=== PATIENT | female | born 1955 | race Caucasian/White ===

== ENCOUNTER → 2019-03-26 10:24 | Outpatient (CLI) | payer OTHER, MEDICARE, SELFPAY ==
--- NOTE | 2019-03-26 10:35 | DI.CT.S_ITS ---
PROCEDURE: CT ABDOMEN PELVIS WO CON INDICATIONS: LEFT FLANK PAIN TECHNIQUE: Noncontrast 5 mm thick sections acquired from the diaphragms to the symphysis. 5 mm coronal and sagittal reformats were then performed. For radiation dose reduction, the following was used: automated exposure control, adjustment of mA and/or kV according to patient size. COMPARISON: [facility], CT, ABDOMEN WITH AND WITHOUT CONTR, 06/16/2009, 13:26. [facility], CT, ABDOMEN WITHOUT CONTRAST, 05/31/2010, 11:47. FINDINGS: Image quality: Excellent. ABDOMEN: Lung bases: Lung bases are clear. Heart size is normal. Solid organs: Liver is enlarged. Gallbladder is within normal limits. Pancreas is normal in contours. Spleen is normal in size. Low density bilateral adrenal nodules are present, as before, which have increased in size. Right adrenal nodule measures 6.5 cm and -14.2 Hounsfield units. Left adrenal nodule measures 5 cm and -11.4 Hounsfield units. Kidneys are normal in size, without hydronephrosis. There is a 16mm calcified low-density focus within the left interpolar kidney, which has increased in size. Peritoneum and bowel: Unenhanced bowel loops demonstrate normal wall thickness and caliber. No free fluid or air. Nodes and vessels: No retroperitoneal or mesenteric adenopathy by size criteria. Aorta and inferior vena cava are normal in caliber. Miscellaneous: No ventral hernias. PELVIS: Genitourinary: Bladder wall thickness is normal. Miscellaneous: No inguinal hernias or adenopathy. Bones: Right hip arthroplasty. No suspicious bony lesions. No vertebral body compression fractures. IMPRESSION: 1. No acute process. 2. No evidence of urinary tract obstruction. 3. Increased calcific focus within the left interpolar kidney. Differential considerations include remote infectious sequelae of compressive disease e.g., fungal or mycobacterial infection) versus neoplasm. IV contrast enhanced renal protocol CT or MRI is recommended for further assessment. 4. Increased bilateral adrenal adenomata. Dictated by: Ja Jaquez M.D. on 03/26/2019 at 11:02 Approved by: Ja Jaquez M.D. on 03/26/2019 at 11:07
== END ==
PROVIDERS: PCP Family Medicine; Visit Provider Family Medicine
DX: R93.422 Abnormal radiologic findings on diagnostic imaging of left kidney (principal); R10.9 Unspecified abdominal pain
CPT/HCPCS: 74176

== ENCOUNTER → 2019-04-02 14:39 | Outpatient (CLI) | payer OTHER, MEDICARE, SELFPAY ==
--- NOTE | 2019-04-02 | DI.CT.S_ITS ---
PROCEDURE: CT ABDOMEN W CON INDICATIONS: OTHER SPECIFIED DISORDERS OF KIDNEY AND URETER TECHNIQUE: After the administration of intravenous contrast, 5 mm thick images acquired from the diaphragm to the iliac crests in the arterial and urographic phases. 5 mm thick coronal and sagittal reformats were acquired. For radiation dose reduction, the following was used: automated exposure control, adjustment of mA and/or kV according to patient size. COMPARISON: [facility], CT, ABDOMEN WITH AND WITHOUT CONTR, 06/16/2009, 13:26. [facility], CT, CT ABDOMEN PELVIS WO CON, 03/26/2019, 10:33. FINDINGS: Image quality: Excellent. Lung bases: Lung bases are clear. Heart size is normal. Genitourinary: The bilateral kidneys demonstrate normal size and enhancement. There are multiple bilateral hypodense cortical lesions present consistent with simple renal cysts. A low density cyst is present within the midpole the left kidney which measures 1.2 cm in diameter. Dystrophic calcifications are present along the posterior margin of the cystic lesion. Overall, these findings are similar in extent to the study dated 06/16/09. No findings to suggest new suspicious enhancing renal mass. Solid organs: The liver is markedly enlarged measuring greater than 20 cm in length. The inferior margin the liver is not visualized on this limited view of the abdomen. Gallbladder is unremarkable. Biliary system is non dilated. Pancreas enhances normally. Spleen is normal in size and enhancement. There moderate in hypodense adrenal mass lesions bilaterally which are similar in appearance to the CT dated 06/16/09. Peritoneum and bowel: Unenhanced bowel loops are normal in caliber and wall thickness. No free fluid or air. Nodes and vessels: No retroperitoneal or mesenteric adenopathy by size criteria. Aorta and inferior vena cava are normal in caliber. Bones: No suspicious bony lesions. Severe degenerative changes are present within the mid lumbar spine. No vertebral body compression fractures. Miscellaneous: No ventral hernias. IMPRESSION: 1. Left renal cyst with dystrophic calcifications. No suspicious enhancement to suggest cystic neoplasm. 2. Marked hepatomegaly, the entire extent of which is not characterized on this view of the abdomen. 3. Stable bilateral adrenal adenomas. Dictated by: Mary Pitts M.D. on 04/02/2019 at 16:27 Approved by: Mary Pitts M.D. on 04/02/2019 at 16:38
[2019-04-02 15:05] LABS: Alanine Aminotransferase 18 IU/L (9-52); Albumin 4.5 g/dL (3.5-5.0); Albumin Globulin Ratio 1.3 (1.0-2.8); Alkaline Phosphatase 86 U/L (38-126); Aspartate Aminotransferase 32 IU/L (14-36); BUN Creatinine Ratio 18.9 (6-22); Bilirubin Total 0.5 mg/dL (0.2-1.3); Blood Urea Nitrogen 17 mg/dL (7-17); Calcium 10.1 mg/dL (8.4-10.2); Carbon Dioxide 28 mmol/L (22-32); Chloride 107 mmol/L (98-107); Estimated Glomerular Filt Rate > 60.0 mL/min (>60); Globulin 3.4 g/dL (1.7-4.1); Glucose 99 mg/dL (80-110); HEMOLYSIS 40 (0-50); Potassium 4.5 mmol/L (3.4-5.1); Sodium 144 mmol/L (137-145); Total Protein 7.9 g/dL (6.3-8.2)
== END ==
PROVIDERS: PCP Family Medicine; Visit Provider Family Medicine
DX: N28.89 Other specified disorders of kidney and ureter (principal)
CPT/HCPCS: 36415; 74160; 74170; 80053; Q9967

== ENCOUNTER 2020-02-04 17:47 | Emergency (ER) | payer OTHER, MEDICARE, SELFPAY ==
[2020-02-04 17:50] VITALS: BP 138/77; PULSE 84; RESP 14; TEMP 37.1; O2SAT 98; BMI 33.6
[2020-02-04] MEDS: TET,DIPH,PERTUSS(ACELL),VAC/PF 0.5 ML SYRINGE IM (18:13)
--- NOTE | 2020-02-04 20:57 | ED_ITS ---
HPI - Wound/Laceration <Conchita Velarde PA-C - Last Filed: 02/04/20 21:14> General Chief Complaint: Wound/Laceration Stated Complaint: cut to index finger of left hand Time Seen by Provider: 02/04/20 19:33 Source: patient Mode of arrival: Ambulatory Limitations: no limitations History of Present Illness HPI narrative: This is a well-appearing 64-year-old smoker who presents to the emergency department complaining of a laceration to her left index finger that she sustained while using a knife today in the kitchen shortly before arrival to the emergency department. She says that it did bleed quite a bit but the bleeding was controlled with a bandage and pressure in the emergency department. She does not complain of any other injury injuries, does not endorse taking blood thinners, and has minimal pain. She denies any other symptoms, this is an isolated injury. Onset (ago): hour(s) (2) Extremity Location: Left: hand Place: home Patient tetanus UTD: Yes Context: accidental Associated symptoms: pain Treatments prior to arrival: bandage Related Data Home Medications Medication Instructions Recorded Confirmed ASPIRIN (Aspirin) 324 mg PO Q DAY #0 09/18/10 Simvastatin (Zocor) 20 mg PO HS #0 09/18/10 VITAMIN C - 500 mg PO Q DAY #0 09/18/10 (VITAMIN C) [RIBOFLAVIN] 400 mg PO AM #0 11/20/10 Allergies Allergy/AdvReac Type Severity Reaction Status Date / Time No Known Drug Allergies Allergy Verified 02/04/20 17:54 Review of Systems <Conchita Velarde PA-C - Last Filed: 02/04/20 21:14> Review of Systems Narrative: GENERAL: Denies chills, fatigue, malaise, fever, sweats. RESPIRATORY: Denies dyspnea, cough, wheezing, hemoptysis, sputum. CARDIOVASCULAR: Denies chest pain, palpitations, orthopnea, edema, MUSCULOSKELETAL: denies weakness, joint pain, or bony pain SKIN: Positive for a laceration to her left index finger. Denies rash, skin lesions, or other PSYCHIATRIC: No concerning psychosocial issues. 12 point review of systems is negative except for those stated above Patient History <Conchita Velarde PA-C - Last Filed: 02/04/20 21:14> Social History Smoking Status: Current every day smoker Smoking Status: Current every day smoker alcohol intake frequency: holidays/special occasions only Substance Use Type: marijuana Exam <Conchita Velarde PA-C - Last Filed: 02/04/20 21:14> Narrative Exam Narrative: GENERAL: 64 year old patient appears stated age. Well-nourished, well-developed patient, in mild distress. HEAD: Atraumatic. Normocephalic. EYES: Pupils equal round and reactive. CARDIOVASCULAR: Regular rate and rhythm without murmurs, gallops, or rubs. RESPIRATORY: Clear to auscultation. Breath sounds equal bilaterally. No wheezes, rales, or rhonchi. EXTREMITIES: There is some mild pain with range of motion particularly flexion of the 2nd digit, but she has a full range of motion. No edema or joint tenderness. NEURO: AOx3. SKIN: There is a approximately 13 mm curvilinear shallow laceration/avulsion to the left 2nd finger overlying the PIP joint on the lateral aspect. Bleeding is controlled. Capillary refill of the affected digit is less than 2 seconds. Tendons are not affected. Sensation is intact. No rash or erythema of visibible areas. Initial Vital Signs Initial Vital Signs: Vital Signs Temperature 98.7 F 02/04/20 17:50 Pulse Rate 84 02/04/20 17:50 Respiratory Rate 14 02/04/20 17:50 Blood Pressure 138/77 02/04/20 17:50 Pulse Oximetry 98 02/04/20 17:50 <Uri Hi MD - Last Filed: 02/05/20 04:19> Initial Vital Signs Initial Vital Signs: Vital Signs Temperature 98.7 F 02/04/20 17:50 Pulse Rate 84 02/04/20 17:50 Respiratory Rate 14 02/04/20 17:50 Blood Pressure 138/77 02/04/20 17:50 Pulse Oximetry 98 02/04/20 17:50 Procedures <Conchita Velarde PA-C - Last Filed: 02/04/20 21:14> Laceration Repair Laceration 1: Site: hand Size (cm): 1.3 Description: linear (curvilinear) Depth: simple, single layer Pre-repair: wound explored, irrigated extensively and deep structures intact Skin layer closed with: dermabond Course <Conchita Velarde PA-C - Last Filed: 02/04/20 21:14> Orders Ordered: Discontinued Medications Diphtheria/Tetanus/Acell Pertussis (Adacel) 0.5 ml IM .ONCE ONE Stop: 02/04/20 17:58 Last Admin: 02/04/20 18:13 Dose: 0.5 ml Documented by: KBROTEM Vital Signs Vital signs: Vital Signs - 8 hr 02/04/20 21:09 Pulse Rate 72 Respiratory Rate 16 Blood Pressure 140/70 Pulse Oximetry 97 <Uri Hi MD - Last Filed: 02/05/20 04:19> Orders Ordered: Discontinued Medications Diphtheria/Tetanus/Acell Pertussis (Adacel) 0.5 ml IM .ONCE ONE Stop: 02/04/20 17:58 Last Admin: 02/04/20 18:13 Dose: 0.5 ml Documented by: KBROTEM Vital Signs Vital signs: Vital Signs - 8 hr 02/04/20 21:09 Pulse Rate 72 Respiratory Rate 16 Blood Pressure 140/70 Pulse Oximetry 97 [facility] - Wound/Laceration <Conchita Velarde PA-C - Last Filed: 02/04/20 21:14> Differential Diagnosis Differential diagnosis: Likely laceration Medical Records Attestation: I reviewed the patient's medical records. [facility] Narrative Medical decision making narrative: This is a well-appearing 64-year-old smoker who presents to the emergency department with a shallow laceration to her left 2nd digit overlying the lateral PIP joint. She declines x-ray, and based on exploration of the wound and its depth I am comfortable with this as well. Based on exam I have no suspicion for significant vascular damage, I have no suspicion for nerve damage or injury to the bone or tendons. The wound was explored and irrigated as above, and closed with Dermabond. The patient was provided with instructions regarding care, she is also provided with a finger splint to minimize movement of the joint while the wound heals. Return precautions were provided as well as follow-up recommendations, all questions were answered. Discharge Plan Departure Patient Disposition: Home Clinical Impression: Laceration Laceration of index finger of left hand without complication Qualifiers: Encounter type: initial encounter Qualified Code(s): S61.211A - Laceration without foreign body of left index finger without damage to nail, initial encounter Discharge Date/Time: 02/04/20 21:00 Instructions: How to Care for a Laceration After Repair, DI for Laceration Repair Activity Restrictions/Additional Instructions: Thank you for allowing us be part of your care in the emergency department today. There is no evidence of an emergent or life threatening illness at this time, but follow up with your doctor in 1-2 days is recommended nonetheless to continue to rule out serious underlying causes of your symptoms. Please call the office for an appointment. Please return to the Emergency Department for any worsening or persistent symptoms. Please take medications as directed. We repaired the laceration of her left index finger with skin glue, and gave you a splint for your finger you should keep wearing the splint for the next 3-5 days possibly longer depending on how your wound is looking it is okay to move it some when you take the splint off and I would recommend doing this a few times a day to give herself a break as well as to get some movement going in that finger that I would not recommend sending it to a full 90? certainly not in the next few days just to ensure that the skin glue does hold its integrity. Please look out for any signs of infection, including redness, heat, swelling, increased pain or any other symptoms of concern to you. I do recommend that you follow-up with your primary care in the next 2-5 days. The skin glue adhesive will naturally come off on its own and it may take a few weeks for this to happen. Please do not do any soaking baths or leaving your her hand in water for long periods of time for the next 10 days. Please avoid submerging her hand in water or in the shower for the next 24 hours. Prescriptions: No Action VITAMIN C - (VITAMIN C) 500 mg PO Q DAY Qty: 0 RF: 0 ASPIRIN (Aspirin) 324 mg PO Q DAY Qty: 0 RF: 0 Simvastatin (Zocor) 20 mg PO HS Qty: 0 RF: 0 [RIBOFLAVIN] 400 mg PO AM Qty: 0 RF: 0 Referrals: Nir Lofton MD [Primary Care Provider] -
[2020-02-04 21:09] VITALS: BP 140/70; PULSE 72; RESP 16; O2SAT 97
== END 2020-02-04 21:00 | disposition home or self-care (01) ==
PROVIDERS: Emergency Provider Student in an Organized Health Care Education/Training Program; PCP Family Medicine
DX: S61.211A Laceration without foreign body of left index finger without damage to nail, initial encounter (principal); W26.0XXA Contact with knife, initial encounter; Z23 Encounter for immunization
CPT/HCPCS: 90471; 99283; 90715

== ENCOUNTER 2020-05-05 12:07 | Emergency (ER) | payer OTHER, MEDICARE, SELFPAY ==
[2020-05-05] VITALS (8 sets, daily range): BP systolic 132–147; BP diastolic 64–78; PULSE 86–100; RESP 16–18; TEMP 36.8; O2SAT 94–99; BMI 32.2
--- NOTE | 2020-05-05 12:47 | ED.FEMALEGU ---
HPI - Female Genitourinary <ADÁN Donato - Last Filed: 05/05/20 18:59> General Chief complaint: Urogenital-Female Stated complaint: back pain, thinks its her kidneys Time Seen by Provider: 05/05/20 12:24 Source: patient Mode of arrival: Family Vehicle Limitations: no limitations History of Present Illness HPI Narrative: The patient is a 64-year-old female current smoker with history of kidney cyst/kidney mass and pyelonephritis who presents with a chief complaint of left-sided flank pain radiating around to her left abdomen. She does have some chills. She denies any fevers, denies any dysuria but complains of urgency and frequency. She states this happened with previous kidney stone. Denies any fever. She has not taken anything to feel better. She states that she has a remote history of a kidney stone, but nothing recently and she is worried about her multiple kidney masses. Related Data Home Medications Medication Instructions Recorded Confirmed ASPIRIN (Aspirin) 324 mg PO Q DAY #0 09/18/10 Simvastatin (Zocor) 20 mg PO HS #0 09/18/10 VITAMIN C - 500 mg PO Q DAY #0 09/18/10 (VITAMIN C) [RIBOFLAVIN] 400 mg PO AM #0 11/20/10 Previous Rx's Medication Instructions Recorded hydrocodone-acetaminophen [[place]] 1 tab PO Q4-6H PRN #10 tab 05/05/20 ketorolac 10 mg PO TID PRN #14 tab 05/05/20 ondansetron 4 mg PO Q6H PRN #20 tab 05/05/20 tamsulosin 0.4 mg PO DAILY #7 cap 05/05/20 Allergies Allergy/AdvReac Type Severity Reaction Status Date / Time No Known Drug Allergies Allergy Verified 05/05/20 12:36 Review of Systems <ADÁN Donato - Last Filed: 05/05/20 18:59> Review of Systems Narrative: GENERAL: Denies chills, fatigue, malaise, fever, sweats. HEENT: Denies sinus pain, ear pain, sore throat, difficulty swallowing, dizziness. RESPIRATORY: Denies dyspnea, cough, wheezing, hemoptysis, sputum. CARDIOVASCULAR: Denies chest pain, palpitations, orthopnea, edema, GASTROINTESTINAL: See HPI : See HPI MUSCULOSKELETAL: denies weakness, joint pain, or bony pain SKIN: Denies rash, skin lesions, or other NEUROLOGIC: Denies weakness, headache, numbness, change in speech, confusion, seizures, incoordination. PSYCHIATRIC: No concerning psychosocial issues. 12 point review of systems is negative except for those stated above Patient History <Cande ADÁN Greer - Last Filed: 05/05/20 18:59> alcohol intake frequency: holidays/special occasions only Substance Use Type: marijuana Exam <Cande ADÁN Greer - Last Filed: 05/05/20 18:59> Narrative Exam Narrative: GENERAL: This is a well-nourished, well-developed patient, no acute distress HEAD: Atraumatic. Normocephalic. No temporal or scalp tenderness. EYES: Pupils equal round and reactive. Extraocular motions intact. No scleral icterus. No injection or drainage. ENT: Nose without bleeding, purulent drainage or septal hematoma. Throat without erythema, tonsillar hypertrophy or exudate. Uvula midline. Airway patent. NECK: Trachea midline. No JVD or lymphadenopathy. Supple, nontender, no meningeal signs. CARDIOVASCULAR: Regular rate and rhythm RESPIRATORY: Coarse bilaterally to auscultation. Breath sounds equal bilaterally. No wheezes, rales, or rhonchi. No cough on exam. No increased respiratory effort. No accessory muscle use. GASTROINTESTINAL: Abdomen soft, slight left lower quadrant tenderness to palpation, nondistended. No hepato-splenomegaly, or palpable masses. No guarding. Active bowel sounds all 4 quadrants EXTREMITIES: No clubbing, cyanosis, or edema. No joint tenderness, effusion, or edema noted. BACK: Nontender without deformity or crepitance. CVA tenderness noted left side, no CVA tenderness noted right side NEURO: AOx3. SKIN: No rash or erythema on visible care Initial Vital Signs Initial Vital Signs: Vital Signs Temperature 98.2 F 05/05/20 12:34 Pulse Rate 98 H 05/05/20 12:34 Respiratory Rate 18 05/05/20 12:34 Blood Pressure 147/64 H 05/05/20 12:34 Pulse Oximetry 98 05/05/20 12:34 <Luisana Cantu MD - Last Filed: 05/06/20 08:31> Initial Vital Signs Initial Vital Signs: Vital Signs Temperature 98.2 F 08/28/20 12:34 Pulse Rate 98 H 05/05/20 12:34 Respiratory Rate 18 05/05/20 12:34 Blood Pressure 147/64 H 05/05/20 12:34 Pulse Oximetry 98 05/05/20 12:34 Scores <ZAHIDA DonatoBC - Last Filed: 05/05/20 18:59> GCS Nicholas coma scale eye opening: Spontaneous Parsons coma scale verbal response: Orientated Parsons coma scale motor response: Obey commands Parsons coma scale total score: 15 Course <ADÁN Donato - Last Filed: 05/05/20 18:59> Orders Ordered: Discontinued Medications Hydrocodone Bitart/Acetaminophen ([place] 5/325) 1 tab PO NOW ONE Stop: 05/05/20 15:40 Last Admin: 05/05/20 15:42 Dose: 1 tab Documented by: JUNIOR Sodium Chloride (Normal Saline 0.9%) 1,000 mls @ 1,000 mls/hr IV BOLUS ONE Stop: 05/05/20 13:35 Last Infusion: 05/05/20 15:38 Dose: 0 mls/hr Documented by: Admin: 05/05/20 13:01 Dose: 1,000 mls/hr Documented by: JUNIOR Ketorolac Tromethamine (Toradol) 15 mg IV NOW ONE Stop: 05/05/20 15:40 Last Admin: 05/05/20 15:45 Dose: 15 mg Documented by: JUNIOR Morphine Sulfate (Morphine) 4 mg IV NOW ONE Stop: 05/05/20 12:37 Last Admin: 05/05/20 13:03 Dose: 4 mg Documented by: JUNIOR Morphine Sulfate (Morphine) 4 mg IV NOW ONE Stop: 05/05/20 14:34 Last Admin: 05/05/20 15:44 Dose: Not Given Documented by: JUNIOR Ondansetron HCl (Zofran) 4 mg IV NOW ONE Stop: 05/05/20 12:37 Last Admin: 05/05/20 13:03 Dose: 4 mg Documented by: JUNIOR Vital Signs Vital signs: Vital Signs - 8 hr 05/05/20 12:34 05/05/20 13:57 05/05/20 14:00 Temperature 98.2 F Pulse Rate 98 H 90 86 Respiratory Rate 18 Blood Pressure 147/64 H 133/73 Pulse Oximetry 98 97 96 05/05/20 14:42 05/05/20 14:43 05/05/20 15:00 Temperature Pulse Rate 95 H 92 H 89 Respiratory Rate 16 Blood Pressure 132/77 Pulse Oximetry 99 97 94 05/05/20 15:30 05/05/20 15:49 Temperature 98.3 F Pulse Rate 87 100 H Respiratory Rate 16 Blood Pressure 140/78 Pulse Oximetry 97 95 <Luisana Cantu MD - Last Filed: 05/06/20 08:31> Orders Ordered: Discontinued Medications Hydrocodone Bitart/Acetaminophen ([place] 5/325) 1 tab PO NOW ONE Stop: 05/05/20 15:40 Last Admin: 05/05/20 15:42 Dose: 1 tab Documented by: JUNIOR Sodium Chloride (Normal Saline 0.9%) 1,000 mls @ 1,000 mls/hr IV BOLUS ONE Stop: 05/05/20 13:35 Last Infusion: 05/05/20 15:38 Dose: 0 mls/hr Documented by: Admin: 05/05/20 13:01 Dose: 1,000 mls/hr Documented by: JUNIOR Ketorolac Tromethamine (Toradol) 15 mg IV NOW ONE Stop: 05/05/20 15:40 Last Admin: 05/05/20 15:45 Dose: 15 mg Documented by: JUNIOR Morphine Sulfate (Morphine) 4 mg IV NOW ONE Stop: 05/05/20 12:37 Last Admin: 05/05/20 13:03 Dose: 4 mg Documented by: JUNIOR Morphine Sulfate (Morphine) 4 mg IV NOW ONE Stop: 05/05/20 14:34 Last Admin: 05/05/20 15:44 Dose: Not Given Documented by: JUNIOR Ondansetron HCl (Zofran) 4 mg IV NOW ONE Stop: 05/05/20 12:37 Last Admin: 05/05/20 13:03 Dose: 4 mg Documented by: JUNIOR Vital Signs Vital signs: Vital Signs - 8 hr 05/05/20 12:34 05/05/20 13:57 05/05/20 14:00 Temperature 98.2 F Pulse Rate 98 H 90 86 Respiratory Rate 18 Blood Pressure 147/64 H 133/73 Pulse Oximetry 98 97 96 05/05/20 14:42 05/05/20 14:43 05/05/20 15:00 Temperature Pulse Rate 95 H 92 H 89 Respiratory Rate 16 Blood Pressure 132/77 Pulse Oximetry 99 97 94 05/05/20 15:30 05/05/20 15:49 Temperature 98.3 F Pulse Rate 87 100 H Respiratory Rate 16 Blood Pressure 140/78 Pulse Oximetry 97 95 MDM - Female Genitourinary <SHIRA Donato- - Last Filed: 05/05/20 18:59> Lab Data Result diagrams: 05/05/20 13:05 05/05/20 13:05 Labs: Lab Results 05/05/20 05/05/20 05/05/20 Range/Units 12:30 13:05 13:05 WBC 12.9 H (4.5-11.0) X10^3/uL RBC 4.77 (4.0-5.2) X10^6/uL Hgb 15.0 (12.0-16.0) g/dL Hct 43.1 (36-46) % MCV 90.5 (80-100) fL MCH 31.4 (26-34) PG MCHC 34.7 (30-36) % RDW 13.6 (11.6-14.8) % Plt Count 310 (150-400) X10^3/uL Neut % (Auto) 79.0 H (50-75) % Lymph % (Auto) 12.6 L (25-40) % [place] % (Auto) 7.6 (3-14) % Eos % (Auto) 0.3 L (2-4) % Baso % (Auto) 0.5 (0-2) % Neut # (Auto) 38993 H (8455-2544) /uL Lymph # (Auto) 1600 (4368-9276) /uL [place] # (Auto) 1000 H (0-900) /uL Eos # (Auto) 0 (0-450) /uL Baso # (Auto) 100 (0-100) /uL Sodium 139 (137-145) mmol/L Potassium 3.5 (3.4-5.1) mmol/L Chloride 106 (98-107) mmol/L Carbon Dioxide 24 (22-32) mmol/L BUN 20 H (7-17) mg/dL Creatinine 1.18 H (0.52-1.04) mg/dL Estimated GFR 46.0 L (>60) mL/min BUN/Creatinine Ratio 16.9 (6-22) Glucose 114 H (80-110) mg/dL Calcium 10.0 (8.4-10.2) mg/dL Total Bilirubin 0.7 (0.2-1.3) mg/dL AST 33 (14-36) IU/L ALT 22 (<35) IU/L Alkaline Phosphatase 101 (38-126) U/L Total Protein 8.2 (6.3-8.2) g/dL Albumin 4.6 (3.5-5.0) g/dL Globulin 3.6 (1.7-4.1) g/dL Albumin/Globulin Ratio 1.3 (1.0-2.8) Amylase 74 (30-110) U/L Lipase 100 (23-300) U/L Urine RBC 10-30/hpf H (0-5/HPF) Urine WBC 5-10/hpf H (0-5/HPF) Ur Squamous Epith Cells 5-10 /hpf H (0-5/HPF) Urine Bacteria Moderate (10-30) H (None) Ur Culture Indicated? Cult not indicated 05/05/20 Range/Units 14:15 WBC (4.5-11.0) X10^3/uL RBC (4.0-5.2) X10^6/uL Hgb (12.0-16.0) g/dL Hct (36-46) % MCV (80-100) fL MCH (26-34) PG MCHC (30-36) % RDW (11.6-14.8) % Plt Count (150-400) X10^3/uL Neut % (Auto) (50-75) % Lymph % (Auto) (25-40) % [place] % (Auto) (3-14) % Eos % (Auto) (2-4) % Baso % (Auto) (0-2) % Neut # (Auto) (8112-4800) /uL Lymph # (Auto) (4289-7023) /uL [place] # (Auto) (0-900) /uL Eos # (Auto) (0-450) /uL Baso # (Auto) (0-100) /uL Sodium (137-145) mmol/L Potassium (3.4-5.1) mmol/L Chloride (98-107) mmol/L Carbon Dioxide (22-32) mmol/L BUN (7-17) mg/dL Creatinine (0.52-1.04) mg/dL Estimated GFR (>60) mL/min BUN/Creatinine Ratio (6-22) Glucose (80-110) mg/dL Calcium (8.4-10.2) mg/dL Total Bilirubin (0.2-1.3) mg/dL AST (14-36) IU/L ALT (<35) IU/L Alkaline Phosphatase (38-126) U/L Total Protein (6.3-8.2) g/dL Albumin (3.5-5.0) g/dL Globulin (1.7-4.1) g/dL Albumin/Globulin Ratio (1.0-2.8) Amylase (30-110) U/L Lipase (23-300) U/L Urine RBC 5-10/hpf H (0-5/HPF) Urine WBC None seen (0-5/HPF) Ur Squamous Epith Cells 0-1 /hpf (0-5/HPF) Urine Bacteria None seen (None) Ur Culture Indicated? Culture not indicate Urine Dip Bedside Urine Glucose Negative Bedside Urine Bilirubin - Negative Bedside Urine Ketone - Negative Urine Specific [place] 1.015 Bedside Urine Occult Blood + Bedside Urine pH 6.0 Bedside Urine Protein - Negative Bedside Urine Urobilinogen - Negative Bedside Urine Nitrite - Negative Bedside Urine Leukocytes - Negative Esterase Imaging Data CT scan - abdomen/pelvis: Radiologist's Impression: [address] [address] CT Scan Report Signed Patient: Cynthia Reynoso LMR#: [id number] : 5Acct:[id number] Age/Sex: 64 / FDate of Service: 05/05/20 Loc: ED Accession Number: [id number] Procedure: CT abdomen pelvis w con Ordering Provider: Cande Greer [employer] TECHNICAL OFFICER- PROCEDURE: CT ABDOMEN PELVIS W CON INDICATIONS: flank pain, left abd pain, hx renal mass TECHNIQUE: After the administration of intravenous contrast, 5 mm thick sections acquired from the diaphragm to the symphysis. 5 mm coronal and sagittal reformats were acquired. For radiation dose reduction, the following was used: automated exposure control, adjustment of mA and/or kV according to patient size. COMPARISON: [facility], CT, CT ABDOMEN PELVIS WO CON, 03/26/2019, 10:33. [facility], CT, ABDOMEN/PELVIS WITH CONTRAST, 06/08/2009, 10:55. FINDINGS: Image quality: Excellent. ABDOMEN: Lung bases: Lung bases are clear. Heart size is normal. Solid organs: Liver is normal in size and enhancement. Gallbladder appears normal. Biliary system is non dilated. Pancreas enhances normally. Spleen is normal in size and enhancement. Diffuse adrenal adenomata are again seen, not significantly changed in size when compared to the prior CT from 06/08/2019. A 4 mm calculus is seen in the distal left ureter near the ureterovesicular junction with moderate left hydroureteronephrosis. 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 Small cysts are seen in both kidneys. There is no right-sided hydronephrosis. Peritoneum and bowel: Bowel loops demonstrate normal wall thickness and caliber. No free fluid or air. Nodes and vessels: No retroperitoneal or mesenteric adenopathy by size criteria. Aorta and inferior vena cava are normal in size. Atherosclerotic calcifications are seen in the aorta. Miscellaneous: No ventral hernias. PELVIS: Genitourinary: Bladder wall thickness is normal. Miscellaneous: No inguinal hernias or adenopathy. Bones: No suspicious bony lesions. No vertebral body compression fractures. Postsurgical changes are seen from right hip arthroplasty with metallic artifact that obscures the adjacent structures. Degenerative changes are seen in the included portions of the spine. Levoconvex curvature is seen at the lumbosacral junction. IMPRESSION: 1. A 4 mm calculus is seen at the distal left ureter near the ureterovesicular junction with moderate left hydroureteronephrosis. 2. 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 3. Bilateral adrenal adenomata do not appear significantly changed in size when compared to the prior CT from 2018. Dictated by: Andriy Contreras M.D. on 05/05/2020 at 14:36 Approved by: Andriy Contreras M.D. on 05/05/2020 at 14:59 MDM Narrative Medical decision making narrative: The patient is a [age]-year-old history of kidney mass who presents with a chief complaint of left-sided flank pain. She is also concerned about nurse kidney masses, her renal function appears fairly well. Her CT abdomen pelvis was done with contrast to evaluate the kidney masses, which appeared to have barely changed in size and or stayed stable. She does have a 4 mm ureteral stone. She was given morphine and Zofran in the emergency department for comfort. I did start her on pain medicine, nausea medicine to tamsulosin. The patient states she will follow up with primary care provider in the next few days as she needs to see them prior to urologist as per her insurance policy. She has no signs of urinary tract infection, no dysuria. I discussed at length monitoring for those and discussed at length coming back to the emergency department for any concerns. Patient has no questions or concerns upon discharge and states understanding of return precautions as well as follow-up care. <Luisana Cantu MD - Last Filed: 05/06/20 08:31> Lab Data Labs: Lab Results 05/05/20 05/05/20 05/05/20 Range/Units 12:30 13:05 13:05 WBC 12.9 H (4.5-11.0) X10^3/uL RBC 4.77 (4.0-5.2) X10^6/uL Hgb 15.0 (12.0-16.0) g/dL Hct 43.1 (36-46) % MCV 90.5 (80-100) fL MCH 31.4 (26-34) PG MCHC 34.7 (30-36) % RDW 13.6 (11.6-14.8) % Plt Count 310 (150-400) X10^3/uL Neut % (Auto) 79.0 H (50-75) % Lymph % (Auto) 12.6 L (25-40) % [place] % (Auto) 7.6 (3-14) % Eos % (Auto) 0.3 L (2-4) % Baso % (Auto) 0.5 (0-2) % Neut # (Auto) 05209 H (4106-8350) /uL Lymph # (Auto) 1600 (6935-6552) /uL [place] # (Auto) 1000 H (0-900) /uL Eos # (Auto) 0 (0-450) /uL Baso # (Auto) 100 (0-100) /uL Sodium 139 (137-145) mmol/L Potassium 3.5 (3.4-5.1) mmol/L Chloride 106 (98-107) mmol/L Carbon Dioxide 24 (22-32) mmol/L BUN 20 H (7-17) mg/dL Creatinine 1.18 H (0.52-1.04) mg/dL Estimated GFR 46.0 L (>60) mL/min BUN/Creatinine Ratio 16.9 (6-22) Glucose 114 H (80-110) mg/dL Calcium 10.0 (8.4-10.2) mg/dL Total Bilirubin 0.7 (0.2-1.3) mg/dL AST 33 (14-36) IU/L ALT 22 (<35) IU/L Alkaline Phosphatase 101 (38-126) U/L Total Protein 8.2 (6.3-8.2) g/dL Albumin 4.6 (3.5-5.0) g/dL Globulin 3.6 (1.7-4.1) g/dL Albumin/Globulin Ratio 1.3 (1.0-2.8) Amylase 74 (30-110) U/L Lipase 100 (23-300) U/L Urine RBC 10-30/hpf H (0-5/HPF) Urine WBC 5-10/hpf H (0-5/HPF) Ur Squamous Epith Cells 5-10 /hpf H (0-5/HPF) Urine Bacteria Moderate (10-30) H (None) Ur Culture Indicated? Cult not indicated 05/05/20 Range/Units 14:15 WBC (4.5-11.0) X10^3/uL RBC (4.0-5.2) X10^6/uL Hgb (12.0-16.0) g/dL Hct (36-46) % MCV (80-100) fL MCH (26-34) PG MCHC (30-36) % RDW (11.6-14.8) % Plt Count (150-400) X10^3/uL Neut % (Auto) (50-75) % Lymph % (Auto) (25-40) % [place] % (Auto) (3-14) % Eos % (Auto) (2-4) % Baso % (Auto) (0-2) % Neut # (Auto) (7189-6848) /uL Lymph # (Auto) (7529-7431) /uL [place] # (Auto) (0-900) /uL Eos # (Auto) (0-450) /uL Baso # (Auto) (0-100) /uL Sodium (137-145) mmol/L Potassium (3.4-5.1) mmol/L Chloride (98-107) mmol/L Carbon Dioxide (22-32) mmol/L BUN (7-17) mg/dL Creatinine (0.52-1.04) mg/dL Estimated GFR (>60) mL/min BUN/Creatinine Ratio (6-22) Glucose (80-110) mg/dL Calcium (8.4-10.2) mg/dL Total Bilirubin (0.2-1.3) mg/dL AST (14-36) IU/L ALT (<35) IU/L Alkaline Phosphatase (38-126) U/L Total Protein (6.3-8.2) g/dL Albumin (3.5-5.0) g/dL Globulin (1.7-4.1) g/dL Albumin/Globulin Ratio (1.0-2.8) Amylase (30-110) U/L Lipase (23-300) U/L Urine RBC 5-10/hpf H (0-5/HPF) Urine WBC None seen (0-5/HPF) Ur Squamous Epith Cells 0-1 /hpf (0-5/HPF) Urine Bacteria None seen (None) Ur Culture Indicated? Culture not indicate Urine Dip Bedside Urine Glucose Negative Bedside Urine Bilirubin - Negative Bedside Urine Ketone - Negative Urine Specific [place] 1.015 Bedside Urine Occult Blood + Bedside Urine pH 6.0 Bedside Urine Protein - Negative Bedside Urine Urobilinogen - Negative Bedside Urine Nitrite - Negative Bedside Urine Leukocytes - Negative Esterase Discharge Plan Departure Patient Disposition: Home Clinical Impression: Calculus, ureteral Discharge Date/Time: 05/05/20 16:33 Instructions: DI for Kidney Infection Activity Restrictions/Additional Instructions: Thank you for trusting us with your care today. As I discussed, 4 mm calculus in your left ureter I sent four prescriptions to [facility] in [place]. This includes tamsulosin to help pass the stone, 2 different pain medications as well as a nausea medicine. I have given you a prescription of Toradol. This is an NSAID. Do not combine it with other NSAIDs such as Aleve or ibuprofen. I suggest taking it with some food, as it can irritate your stomach. I have given you a prescription of a narcotic for pain. Be aware that this can be constipating and sedating. I encouraged taking with a stool softener, pushing fluids and fiber. Do not take and drive, operate heavy machinery, etc. Do not combine it with any other sedating substances such as alcohol. The combination of narcotics and alcohol and/or other sedatives can be lethal. Please follow-up with your primary care provider in the next few days. Please push fluids and rest. Please strain your urine to catch the stone. Please come back to the emergency department for any acute concerns such as inability keep down fluids, fever with abdominal pain etcetera. Please also monitor for burning when you urinate or any acute concerns. Prescriptions: New tamsulosin 0.4 mg capsule 0.4 mg PO DAILY Qty: 7 RF: 0 ondansetron 4 mg tablet,disintegrating 4 mg PO Q6H PRN (Reason: nausea and vomiting) Qty: 20 RF: 0 hydrocodone-acetaminophen [[place]] 5-325 mg tablet 1 tab PO Q4-6H PRN (Reason: pain) Qty: 10 RF: 0 ketorolac 10 mg tablet 10 mg PO TID PRN (Reason: pain) Qty: 14 RF: 0 No Action VITAMIN C - (VITAMIN C) 500 mg PO Q DAY Qty: 0 RF: 0 ASPIRIN (Aspirin) 324 mg PO Q DAY Qty: 0 RF: 0 Simvastatin (Zocor) 20 mg PO HS Qty: 0 RF: 0 [RIBOFLAVIN] 400 mg PO AM Qty: 0 RF: 0 Referrals: Nir Lofton MD [Primary Care Provider] - <Luisana Cantu MD - Last Filed: 05/06/20 08:31> Cosign ED Attending Cosignature Attestation: I was immediately available in the department for consultation throughout this patient's visit. I agree with documentation as above. Luisana Cantu MD
[2020-05-05 12:54] LABS: Bacteria Urine Moderate (10-30); Culture Indicated Urine Cult Not Indicated; RBC Urine 10-30/HPF (0-5/HPF); Squamous Epithelial Cell Urine 5-10 /HPF (0-5/HPF); WBC Urine 5-10/HPF (0-5/HPF)
[2020-05-05] MEDS: SODIUM CHLORIDE 0.9% 1,000 ML 1000 ML IV (13:01)
[2020-05-05] MEDS: ONDANSETRON 4 MG/2 ML INJ IV (13:03)
[2020-05-05] MEDS: MORPHINE 4 MG/ML INJ IV (13:03)
[2020-05-05 13:14] LABS: Add Manual Diff / Slide Review NO; Basophils Absolute Auto 100 /uL (0-100); Basophils Percent Auto 0.5 % (0-2); Eosinophils Absolute Auto 0 /uL (0-450); Eosinophils Percent Auto 0.3 % (2-4); Hematocrit 43.1 % (36-46); Lymphocytes Absolute Auto 1600 /uL (1100-4500); Lymphocytes Percent Auto 12.6 % (25-40); Mean Corpuscular HGB Conc 34.7 % (30-36); Mean Corpuscular Hemoglobin 31.4 PG (26-34); Mean Corpuscular Volume 90.5 fL (80-100); Monocytes Absolute Auto 1000 /uL (0-900); Monocytes Percent Auto 7.6 % (3-14); Neutrophils Absolute Auto 10200 /uL (1500-7000); Platelet Count 310 X10^3/uL (150-400); Red Blood Cell Count 4.77 X10^6/uL (4.0-5.2); Red Cell Distribution Width 13.6 % (11.6-14.8); White Blood Cell Count 12.9 X10^3/uL (4.5-11.0)
[2020-05-05 13:26] LABS: Alanine Aminotransferase 22 IU/L (<35); Albumin 4.6 g/dL (3.5-5.0); Albumin Globulin Ratio 1.3 (1.0-2.8); Alkaline Phosphatase 101 U/L (38-126); Amylase 74 U/L (30-110); Aspartate Aminotransferase 33 IU/L (14-36); BUN Creatinine Ratio 16.9 (6-22); Bilirubin Total 0.7 mg/dL (0.2-1.3); Blood Urea Nitrogen 20 mg/dL (7-17); Carbon Dioxide 24 mmol/L (22-32); Chloride 106 mmol/L (98-107); Globulin 3.6 g/dL (1.7-4.1); Glucose 114 mg/dL (80-110); HEMOLYSIS 29 (0-50); Lipase 100 U/L (23-300); Potassium 3.5 mmol/L (3.4-5.1); Sodium 139 mmol/L (137-145); Total Protein 8.2 g/dL (6.3-8.2)
--- NOTE | 2020-05-05 13:56 | DI.CT.S_ITS ---
PROCEDURE: CT ABDOMEN PELVIS W CON INDICATIONS: flank pain, left abd pain, hx renal mass TECHNIQUE: After the administration of intravenous contrast, 5 mm thick sections acquired from the diaphragm to the symphysis. 5 mm coronal and sagittal reformats were acquired. For radiation dose reduction, the following was used: automated exposure control, adjustment of mA and/or kV according to patient size. COMPARISON: [facility], CT, CT ABDOMEN PELVIS WO CON, 03/26/2019, 10:33. [facility], CT, ABDOMEN/PELVIS WITH CONTRAST, 06/08/2009, 10:55. FINDINGS: Image quality: Excellent. ABDOMEN: Lung bases: Lung bases are clear. Heart size is normal. Solid organs: Liver is normal in size and enhancement. Gallbladder appears normal. Biliary system is non dilated. Pancreas enhances normally. Spleen is normal in size and enhancement. Diffuse adrenal adenomata are again seen, not significantly changed in size when compared to the prior CT from 06/08/2019. A 4 mm calculus is seen in the distal left ureter near the ureterovesicular junction with moderate left hydroureteronephrosis. 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 Small cysts are seen in both kidneys. There is no right-sided hydronephrosis. Peritoneum and bowel: Bowel loops demonstrate normal wall thickness and caliber. No free fluid or air. Nodes and vessels: No retroperitoneal or mesenteric adenopathy by size criteria. Aorta and inferior vena cava are normal in size. Atherosclerotic calcifications are seen in the aorta. Miscellaneous: No ventral hernias. PELVIS: Genitourinary: Bladder wall thickness is normal. Miscellaneous: No inguinal hernias or adenopathy. Bones: No suspicious bony lesions. No vertebral body compression fractures. Postsurgical changes are seen from right hip arthroplasty with metallic artifact that obscures the adjacent structures. Degenerative changes are seen in the included portions of the spine. Levoconvex curvature is seen at the lumbosacral junction. IMPRESSION: 1. A 4 mm calculus is seen at the distal left ureter near the ureterovesicular junction with moderate left hydroureteronephrosis. 2. 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 3. Bilateral adrenal adenomata do not appear significantly changed in size when compared to the prior CT from 2019. Dictated by: Andriy Contreras M.D. on 05/05/2020 at 14:36 Approved by: Andriy Contreras M.D. on 05/05/2020 at 14:59
[2020-05-05 14:33] LABS: Bacteria Urine None Seen; WBC Urine None Seen (0-5/HPF)
[2020-05-05 14:41] LABS: RBC Urine 5-10/HPF (0-5/HPF); Squamous Epithelial Cell Urine 0-1 /HPF (0-5/HPF)
[2020-05-05] MEDS: HYDROCODONE/ACET 5/325 TABLET 1 TAB PO (15:42)
[2020-05-05] MEDS: KETOROLAC 60 MG/2 ML VIAL 15 MG IV (15:45)
== END 2020-05-05 16:33 | disposition home or self-care (01) ==
PROVIDERS: Emergency Provider Nurse Practitioner Family; PCP Family Medicine
DX: N20.1 Calculus of ureter (principal); Z87.442 Personal history of urinary calculi
CPT/HCPCS: 36415; 74177; 80053; 81003; 81015; 82150; 83690; 85025; 87086; 96361; 96374; 96375; 99284; J1885; J2270; J2405; Q9967

== ENCOUNTER → 2021-01-07 09:31 | Outpatient (CLI) | payer BC, MEDICARE, SELFPAY ==
--- NOTE | 2021-01-07 09:36 | DI.MRI.S_ITS ---
PROCEDURE: MR LUMBAR SPINE WO CON INDICATIONS: Low back pain TECHNIQUE: Noncontrast sagittal T1 spin echo and T2 fast echo, sagittal STIR, axial T1 and T2 fast spin echo through the lumbar spine. In cases with scoliosis, additional coronal T2 fast spin echo may be performed. COMPARISON: [facility], CT, CT ABDOMEN PELVIS W CON, 05/05/2020, 14:14. [facility], RG, XR L-SPINE 4-6V, 12/09/2001, 8:50. FINDINGS: Image quality: Excellent. Alignment and Curvature: There is trace retrolithesis of T12 on L1, L1 on L2, L2 on L3. There is appearance of lumbarization of what appears to be the first sacral vertebral body. For purposes of this exam, vertebral bodies are labeled L1-L5. Bone Marrow: Marrow is of normal overall signal. There reactive endplate changes at L1-2, L2-3. No acute vertebral body compression fractures. Spinal Cord: Conus medullaris terminates at the L2 level. Visualized cord demonstrates normal signal and size. Paraspinous Soft Tissues: No paravertebral masses. Discs: Severe desiccation is present from T12-L1 through L2-3, mild to moderate throughout the remainder of the lumbar spine. L1-L2: Mild disc bulge with right posterior paracentral protrusion with extrusion. There is compromise of the right lateral recess. Mild spinal stenosis is present. Moderate left and moderate to severe right foraminal narrowing with facet and ligamentum flavum hypertrophy. L2-L3: Mild disc bulge with moderate spinal stenosis. Severe right and moderate left foraminal narrowing with facet and ligamentum flavum hypertrophy. L3-L4: Mild disc bulge with moderate spinal stenosis. Vsyb-pk-etjfiyij bilateral foraminal narrowing with facet and ligamentum flavum hypertrophy. L4-L5: Mild disc bulge with severe spinal stenosis and canal compression. Moderate bilateral left greater than right foraminal narrowing with facet and ligamentum flavum hypertrophy. L5-S1: Mild disc bulge with mild spinal stenosis. Moderate bilateral foraminal narrowing with facet and ligamentum flavum hypertrophy. There is what appears to be an anterior left facet joint cyst causing compromise of the proximal left foramina. Although it is adjacent to the exiting nerve root, there appears to be maintenance of a small fat border between the cystic structure and nerve root. IMPRESSION: 1. Multilevel disc bulges. 2. Multilevel spinal stenosis severe at L4-5 with canal compression secondary to disc bulge with contributing effect of facet/ligamentum flavum arthropathy. 3. Multilevel foraminal narrowing most severe at L4-5 and L5-S1 predominantly secondary to facet arthropathy. Dictated by: Nicolle Spann M.D. on 01/08/2021 at 9:44 Approved by: Nicolle Spann M.D. on 01/08/2021 at 12:45
== END ==
PROVIDERS: PCP Family Medicine; Referring Provider Physical Medicine & Rehabilitation; Visit Provider Physical Medicine & Rehabilitation
DX: M51.26 Other intervertebral disc displacement, lumbar region (principal); M51.27 Other intervertebral disc displacement, lumbosacral region; M48.061 Spinal stenosis, lumbar region without neurogenic claudication; M48.07 Spinal stenosis, lumbosacral region; M47.816 Spondylosis without myelopathy or radiculopathy, lumbar region; M47.817 Spondylosis without myelopathy or radiculopathy, lumbosacral region
CPT/HCPCS: 72148

== ENCOUNTER → 2021-04-17 14:34 | Outpatient (CLI) | payer MEDICARE, BC, SELFPAY ==
[2021-04-17 16:51] LABS: Ferritin 84 ng/mL (11-264)
[2021-04-19 16:20] LABS: ANA Screen, IFA Negative (.)
== END ==
PROVIDERS: PCP Family Medicine; Referring Provider Internal Medicine Gastroenterology; Visit Provider Internal Medicine Gastroenterology
DX: B19.20 Unspecified viral hepatitis C without hepatic coma (principal)
CPT/HCPCS: 36415; 82728; 86038; 87522

== ENCOUNTER → 2021-05-07 11:11 | Outpatient (CLI) | payer MEDICARE, BC, SELFPAY ==
[2021-05-07 13:18] LABS: COVID19 -Nasal RAPID Negative (Negative)
== END ==
PROVIDERS: PCP Family Medicine; Referring Provider Physician Assistant; Visit Provider Physician Assistant
DX: Z01.812 Encounter for preprocedural laboratory examination (principal); Z20.822 Contact with and (suspected) exposure to COVID-19
CPT/HCPCS: 87635; C9803

== ENCOUNTER 2021-05-09 09:15 | Day surgery (SDC) | payer MEDICARE, BC, SELFPAY ==
[2021-05-09] VITALS (7 sets, daily range): BP systolic 97–123; BP diastolic 71–83; PULSE 87–116; RESP 12–19; TEMP 36.4–36.7; O2SAT 96–99; BMI 30.1
--- NOTE | 2021-05-09 | PATH_ITS ---
[facility] Accession Number: [id number] . 01 Material submitted: . colon - ASCENDING COLON POLYP . 02 Diagnosis: Ascending Colon, Polyp, Biopsy: Benign lymphoid aggregate. Additional levels were examined. MRV 05/15/2021 1327 Local . 02 Electronically signed: . Nikole Santos MD, Pathologist NPI- [id number] . 01 Gross description: . ASCENDING COLON POLYP: Received in formalin is 1 fragment(s) of gillis, soft tissue measuring 0.5 x 0.3 x 0.3 cm submitted entirely in 1 cassette(s) /DANIELLE 05/10/2021 0459 Local . 02 Microscopic: . Additional deeper levels were examined. The fragment of colonic mucosa shows a prominent benign lymphoid aggregate with superficial serrated architecture without dilated crypt bases. These features mitigate against an interpretation of sessile serrated adenoma. The superficial serrated architecture is favored to represent reactive changes. . 02 Pathologist provided ICD-10: Z12.11 . 02 CPT . 522211 Performed at: 01 [facility] [address], [place], [place] [id number] MD Gagandeep Soto MD Phone: [phone] Performed at: 02 [facility] [address] [place], [place] [id number] MD Nikole Santos MD Phone: [phone]
[2021-05-09] MEDS: SODIUM CHLORIDE 0.9% 1,000 ML 84 ML IV (09:45)
--- NOTE | 2021-05-09 10:04 | PM.PREOP ---
Pre-operative Note Interval Note History & Physical reviewed/Exam performed by Physician: Yes Changes to H&P: No ASA Class (for procedural sedation): II
--- NOTE | 2021-05-09 10:05 | PM.OP.ENDO ---
Operative Date/Time/Diagnoses Date of procedure: 05/09/21 Pre-op diagnosis: See indication and findings Procedure & Clinicians Study performed: Colonoscopy Indications: Screening Surgeon: Logan Moser Procedure Notes Procedure in detail: After informed consent was obtained the patient was placed in left lateral decubitus position. The video upper scope placed into the oropharynx and with the patient's help swallowed into the esophagus. The esophagus stomach and duodenum were carefully examined. On withdrawal retroflexed view the. The scope was removed. The patient tolerated procedure well. Blood loss none Complications none Sedation mac Findings 1. 6 mm polyp in the proximal ascending colon Jumbo biopsied x2 and removed completely 2. Scattered diverticulosis 3. Very long tortuous floppy colon 4. Otherwise negative colonoscopy to cecum Will follow-up on the pathology for the polyp but it may be that she does not need follow-up for another 7-10 years
== END 2021-05-09 11:37 | disposition home or self-care (01) ==
PROVIDERS: PCP Family Medicine; Referring Provider Internal Medicine Gastroenterology; Visit Provider Internal Medicine Gastroenterology
PROC: 0DJD8ZZ Inspection of Lower Intestinal Tract, Via Natural or Artificial Opening Endoscopic (ICD-10-PCS; CPT 45378; principal; 2021-05-09 10:30)
DX: Z12.11 Encounter for screening for malignant neoplasm of colon (principal); B19.20 Unspecified viral hepatitis C without hepatic coma; J44.9 Chronic obstructive pulmonary disease, unspecified; F17.210 Nicotine dependence, cigarettes, uncomplicated; F32.9 Major depressive disorder, single episode, unspecified; K21.9 Gastro-esophageal reflux disease without esophagitis; E78.5 Hyperlipidemia, unspecified; I73.00 Raynaud's syndrome without gangrene; K57.30 Diverticulosis of large intestine without perforation or abscess without bleeding
CPT/HCPCS: 45380

== ENCOUNTER → 2021-06-19 13:58 | Outpatient (CLI) | payer MEDICARE, BC, SELFPAY ==
[2021-06-19 15:03] LABS: Add Manual Diff / Slide Review NO; Basophils Absolute Auto 100 /uL (0-100); Basophils Percent Auto 0.8 % (0-2); Eosinophils Absolute Auto 200 /uL (0-450); Eosinophils Percent Auto 1.9 % (2-4); Hematocrit 42.7 % (36-46); Hemoglobin 14.6 g/dL (12.0-16.0); Lymphocytes Absolute Auto 2600 /uL (1100-4500); Mean Corpuscular HGB Conc 34.3 % (30-36); Mean Corpuscular Hemoglobin 31.8 PG (26-34); Mean Corpuscular Volume 92.6 fL (80-100); Monocytes Absolute Auto 700 /uL (0-900); Monocytes Percent Auto 7.3 % (3-14); Neutrophils Absolute Auto 5800 /uL (1500-7000); Platelet Count 334 X10^3/uL (150-400); Red Blood Cell Count 4.61 X10^6/uL (4.0-5.2); Red Cell Distribution Width 13.7 % (11.6-14.8); White Blood Cell Count 9.3 X10^3/uL (4.5-11.0)
[2021-06-19 15:22] LABS: Hemoglobin A1C% w Est Avg Glu 5.2 % (4.0-6.0)
[2021-06-19 16:31] LABS: BUN Creatinine Ratio 21.1 (6-22); Blood Urea Nitrogen 19 mg/dL (7-17); Calcium 10.1 mg/dL (8.4-10.2); Carbon Dioxide 27 mmol/L (22-32); Chloride 106 mmol/L (98-107); Estimated Glomerular Filt Rate > 60.0 mL/min (>60); Glucose 89 mg/dL (80-110); HEMOLYSIS < 15 (0-50); Potassium 4.5 mmol/L (3.4-5.1); Sodium 140 mmol/L (137-145)
== END ==
PROVIDERS: PCP Family Medicine; Referring Provider Orthopaedic Surgery Orthopaedic Surgery of the Spine; Visit Provider Orthopaedic Surgery Orthopaedic Surgery of the Spine
DX: Z01.818 Encounter for other preprocedural examination (principal); R73.9 Hyperglycemia, unspecified; Z01.812 Encounter for preprocedural laboratory examination
CPT/HCPCS: 36415; 80048; 83036; 85025; 93005; 93010

== ENCOUNTER → 2021-07-06 09:48 | Outpatient (CLI) | payer MEDICARE, BC, SELFPAY ==
[2021-07-06 10:39] LABS: COVID19 -Nasal RAPID Negative (Negative)
== END ==
PROVIDERS: PCP Family Medicine; Visit Provider Physician Assistant
DX: Z20.822 Contact with and (suspected) exposure to COVID-19 (principal)
CPT/HCPCS: 87635; C9803

== ENCOUNTER 2021-07-09 11:28 | Inpatient (IN) | payer MEDICARE, BC, SELFPAY ==
[2021-07-02 09:29] VITALS: BMI 30.1
[2021-07-09] VITALS (9 sets, daily range): BP systolic 114–130; BP diastolic 52–86; PULSE 83–106; RESP 10–96; TEMP 35.3–36.8; O2SAT 90–97; BMI 30.1
[2021-07-09] MEDS: LACTATED RINGERS 1,000 ML 42 ML IV ×2 (12:39→15:38)
--- NOTE | 2021-07-09 13:49 | PM.PREOP ---
Pre-operative Note COVID-19 COVID-19 status: Negative Result date/Date tested (Pos, Neg/Pending): 07/07/21 Interval Note History & Physical reviewed/Exam performed by Physician: Yes Changes to H&P: No
[2021-07-09] MEDS: CEFAZOLIN 1 GM VIAL 2 GM IV ×2 (14:15→21:27)
--- NOTE | 2021-07-09 14:49 | SUR.OPER ---
Prone on spine table, head in foam head support, padded chest and pelvic supports, gel pad at knees, lower legs supported by pillows; nipples, genitalia and toes free of pressure, arms secured on foam padded arm boards at <90 degrees abduction. Tape over blanket at thigh secured to table.
[2021-07-09] MEDS: BUPIVACAINE LIPOSOME 266 MG/20 ML VIAL INJ (14:55)
[2021-07-09] MEDS: BUPIVACAINE 0.25% (PF) 30 ML, EPINEPHrine 0.3 MG INJ (14:55)
--- NOTE | 2021-07-09 16:31 | PM.OP.1 ---
Operative Date/Time/Diagnoses Date of procedure: 07/09/21 Time of procedure: 13:45 Pre-op diagnosis: 1. L4-5 spinal stenosis with neurogenic claudication 2. L4-5 spondylosis with radiculopathy Post-op diagnosis: same Procedure & Clinicians Procedure: 1. L4-5 Postero-lateral and posterior interbody fusion 2. L4-5 interbody cage placement. 3. L4-5 decompressive laminectomy with bilateral facetecomies 4. L4-5 Posterior non-segmental instrumentation 5. [place] of bone marrow from iliac crest 6. Utilization of microsurgical technique and operating microscope Same procedure as scheduled: Yes Indications: Patient has been having chronic back pain and worsening lumbar radiculopathy. Patient failed multiple conservative management with worsening pain weakness and numbness in her lower extremity. Patient has been having difficulty performing activity of daily living. After discussing risks benefits of treatment options, patient elected proceed with surgery. Surgeon: Tyree Baptiste Switchboard Operator Helper: Kishor Mathur Click Yes if Unassisted: No Anesthesia Type: General Operative Notes Closure Type: primary Specimen(s): none sent Prosthetic devices, grafts, tissues, transplants, or devices: Globus revolve screws, Rise cage Estimated Blood Loss (mL): 50 Blood products transfused: none Procedure in detail: Patient was seen in the preoperative area. Risks and benefits of the surgery was discussed with the patient. Informed consent was obtained from the patient and placed in the chart. Surgical site was marked. Patient was taken to the operative room. General anesthesia was administered. Prophylactic antibiotic was given to the patient less than 30 min before the incision was made. Patient was placed into a prone position on the Nikos table. Patient's back was then prepped and draped in the sterile fashion. Time-out was performed at this time. Using AP and lateral C-arm imaging the interval between L4-5 was identified and marked on patient's back. A 2 inch incision 2 in from midline was made on the right side first. The fascia was incised in line with skin incision. Globus MARS retractors was placed inside the incision and docked onto the L4 lamina. Using microsurgical technique and operating microscope, a L4 laminectomy and L4-5 facetectomy was performed using a Kerrison rongeur. The disc space at L4-5 was identified. And a total diskectomy was performed at L4-5 level. The endplates were decorticated using a rasp and shaver. Patient was found have severe central and neural foraminal stenosis which was fully decompressed after the laminectomy and facetectomy was completed. The laminectomy and facetectomy rendered the L4-5 level grossly unstable and required a fusion procedure at the same time. Total diskectomy and decortication was performed at L4-5 level in order to to accomplish a L4-5 fusion. The local bone from the laminectomy and facetectomy was saved for local bone grafting. After the total diskectomy and decortication was completed, Trifecta bone graft material was combined with local bone that was harvested earlier. At this time, a separate skin is incision was made over the iliac crest. A Jamshidi needle was inserted into the iliac crest through a separate skin incision. 5 cc of bone marrow aspiration was obtained through the separate skin incision using a Jamshidi needle from the iliac crest. The bone marrow aspiration was combined with local bone and the Trifecta bone grafting material. The bone grafting material was placed into the L4-5 interbody space along with a expandable cage. The cage was expanded to its maximum height using the torque limiting screwdriver. At this time a mirror image incision was made on the left side. The fascia was incised in line with the skin incision. Globus MARS retractor was inserted and docked onto the L4-5 posterolateral gutter. Using the power drill, posterior-lateral decortication was performed at L4-5 level until bleeding cortical bone was identified. The remaining bone grafting material was placed into the L4-5 posterior lateral gutter he order to accomplish posterolateral fusion at the L4-5 level. Using the double C-arm technique, pedicle screws were placed into the L4-5 pedicles bilaterally. This was done by placing the Jamshidi needle into the pedicles, then placing the guidewires over the Jamshidi needle, and finally placing the cannulated screws over the guidewires bilaterally. After the pedicle screws were placed, 2 titanium rods was locked into the heads of the pedicle screws using locking caps and torque limiting screwdriver. After all the hardware was placed, and confirmed with AP and lateral C-arm imaging, the wound was then irrigated with sterile normal saline and packed with Ray-Reshma gauze for 3 min to accomplish hemostasis. After the gauze was removed the deep fascia was closed with #1 Vicryl suture. The subcutaneous layer was closed with 2-0 Vicryl. The skin was closed with skin rafaela. Patient tolerated the procedure well. There were no complications. Complications: none Post-operative Condition: stable Disposition: PACU Plan for aftercare: Admit to inpatient hospital
--- NOTE | 2021-07-09 16:36 | DI.RAD.S_ITS ---
PROCEDURE: XR LUMBAR SPINE 2-3V INDICATIONS: L4-5 TLIF TECHNIQUE: 2 views of the lumbar spine were acquired. COMPARISON: [facility], RF, LUMBAR TRANSFORAMINAL SANAZ, 02/19/2021, 8:43. [facility], MR, MR LUMBAR SPINE WO CON, 01/07/2021, 10:34. FINDINGS: 2 fluoroscopy images demonstrate discectomy and posterior fusion at L4-L5. There is expected postsurgical change and alignment. IMPRESSION: Discectomy and posterior fusion at L4-L5. Dictated by: Boy Mao M.D. on 07/09/2021 at 17:02 Approved by: Boy Mao M.D. on 07/09/2021 at 17:04
[2021-07-09] MEDS: fentaNYL 100 MCG/2 ML INJ IV (16:54)
[2021-07-09] MEDS: LORazepam 2 MG/ML INJ 0.5 MG IV ×2 (17:04→17:18)
[2021-07-09] MEDS: OXYCODONE/ACETAMINOPHEN 5/325 TABLET 1 TAB PO (17:13)
--- NOTE | 2021-07-09 17:28 | SUR.PHASEI ---
Report called to TEO Anthony. Pt to room 205 on bed with RNs.
[2021-07-09] MEDS: OXYCODONE IR 5 MG TABLET 10 MG PO ×2 (18:08→21:28)
[2021-07-09] MEDS: SODIUM CHLORIDE 0.9% 1,000 ML 100 ML IV (18:40)
[2021-07-09] MEDS: HYDROMORPHONE 0.5 MG INJ IV (19:08)
[2021-07-09] MEDS: MELATONIN 3 MG TABLET 9 MG PO (21:28)
[2021-07-09] MEDS: lamoTRIgine 100 MG TABLET 300 MG PO (21:28)
[2021-07-09] MEDS: ZOLPIDEM 5 MG TABLET PO (21:33)
[2021-07-09] MEDS: PRAZOSIN HCL 5 MG CAPSULE PO (21:39)
[2021-07-09] MEDS: SENNOSIDES 8.6 MG TABLET 17.2 MG PO (21:39)
[2021-07-10] MEDS: ATORVASTATIN 20 MG TABLET PO (01:56)
[2021-07-10] MEDS: DOCUSATE 100 MG CAPSULE PO ×2 (01:56→08:20)
[2021-07-10] MEDS: OXYCODONE IR 5 MG TABLET 10 MG PO ×4 (01:56→11:51)
[2021-07-10] MEDS: hydrOXYzine pamoate 25 MG CAPSULE PO ×3 (01:56→11:51)
[2021-07-10 04:08] VITALS: BP 113/72; PULSE 82; RESP 16; TEMP 36.6; O2SAT 96
[2021-07-10] MEDS: CEFAZOLIN 1 GM VIAL 2 GM IV (05:27)
--- NOTE | 2021-07-10 07:51 | P.PN_ITS ---
Subjective Subjective Date Patient Seen: 07/10/21 Time Patient Seen: 07:51 Interval history: Pain is dswb-bv-dcyaiffi. Denies fever chills. No nausea vomiting. Exam Vital Signs (past 8 hours): - 07/10/21 04:08 Temperature 97.8 F Pulse Rate 82 Respiratory Rate 16 Blood Pressure 113/72 Pulse Oximetry 96 Oxygen Delivery Method Nasal Cannula Oxygen Flow Rate 0 Narrative Exam Narrative: 65-year-old female resting comfortably in bed no apparent distress. Dressing is Clean, dry, intact.. Neurovascular status is intact bilateral lower extremities. PENDING SALE TO [facility] Medical History (Updated 07/02/21 @ 09:55 by Rachna Ortiz RN) Adrenal adenoma Anxiety Bipolar 2 disorder COPD (chronic obstructive pulmonary disease) Depression Diverticulitis Fibromyalgia GERD (gastroesophageal reflux disease) Headache, migraine Hepatitis C HTN (hypertension) Hyperlipidemia Kidney stones Lupus Pneumonia Raynauds disease Surgical History (Updated 07/02/21 @ 10:15 by Rachna Ortiz RN) H/O: hysterectomy History of esophagogastroduodenoscopy (EGD) (05/09/21) History of left knee replacement History of right hip replacement History of right knee joint replacement Hx of tonsillectomy Social History household members: spouse Smoking Status: Current every day smoker alcohol intake: former Assessment & Plan Post-op Postoperative Procedures: Procedures Operation Date: 07/09/21 13:45 Actual Procedure Side Surgeon p L4-5 TLIF Tyree Baptiste MD Postoperative status narrative: Stable Postoperative plan narrative: Patient progressing as expected. Mobilize with physical therapy. Limit bending, twisting, lifting. Likely discharge home today after physical therapy. Quality VTE Deep Vein Thrombosis/Pulmonary Embolism Present on Admission: No
[2021-07-10 07:52] VITALS: BP 111/77; PULSE 85; RESP 16; TEMP 36.9; O2SAT 98
[2021-07-10] MEDS: PANTOPRAZOLE DR 20 MG TABLET PO (08:20)
[2021-07-10] MEDS: FLUoxetine 20 MG CAPSULE 40 MG PO (08:20)
[2021-07-10] MEDS: hydroCHLOROthiazide 25 MG TABLET PO (08:21)
--- NOTE | 2021-07-10 09:55 | OT.IP.EVAL ---
Current Diagnoses Other forms of scoliosis, lumbar region (07/09/21) Spinal stenosis, lumbar region with neurogenic claudication (07/09/21) Surgery Performed Operation Date: 07/09/21 13:45 Actual Procedures p L4-5 TLIF - Tyree Baptiste MD Past Medical History (Last Updated 07/02/21 @ 09:55 by Rachna Ortiz, RN) Adrenal adenoma Anxiety Bipolar 2 disorder COPD (chronic obstructive pulmonary disease) Depression Diverticulitis Fibromyalgia GERD (gastroesophageal reflux disease) H/O: hysterectomy Headache, migraine Hepatitis C History of esophagogastroduodenoscopy (EGD) (05/09/21) History of left knee replacement History of right hip replacement History of right knee joint replacement HTN (hypertension) Hx of tonsillectomy Hyperlipidemia Kidney stones Lupus Pneumonia Raynauds disease Surgical History (Last Updated 07/02/21 @ 10:15 by Rachna Ortiz, RN) H/O: hysterectomy History of esophagogastroduodenoscopy (EGD) (05/09/21) History of left knee replacement History of right hip replacement History of right knee joint replacement Hx of tonsillectomy Occupational Therapy Inpatient Evaluation/Re-Eval M1 PT/OT-IP Prior Functional Status Start: 07/10/21 11:19 Freq: NEEDED Status: Discharge Protocol: Document 07/10/21 10:45 AB (Rec: 07/10/21 11:29 AB [id number]) Medical Review Prior Functional Status Medical History Reviewed Yes Communication able to make needs known Mobility and Gait pt stated that she is independent with all mobilities and ambulation without AD Social History Household Members spouse Living Arrangements House Number of Floors (Floors) One Floor Number of Stairs To Enter/Railing? ramp to enter Home Environment Standard Height Toilet,Tub/ Shower,Ramp Home Equipment Front Wheel Walker,Raised Toilet Seat Without Armrests, Shower Seat without Backrest, Hand Held Shower M1 PT/OT-IP Prior Functional Status Start: 07/10/21 13:11 Freq: NEEDED Status: Active Protocol: Document 07/10/21 09:13 [facility] (Rec: 07/10/21 13:29 [facility] [id number]) Medical Review Prior Functional Status Medical History Reviewed Yes Communication able to make needs known Mobility and Gait pt stated that she is independent with all mobilities and ambulation without AD Activities of Daily Living and IADL's Pt states able to do all her ADL and IADl needs. Social History Household Members spouse Living Arrangements House Number of Floors (Floors) One Floor Number of Stairs To Enter/Railing? ramp to enter Home Environment Standard Height Toilet,Tub/ Shower,Ramp Home Equipment Front Wheel Walker,Raised Toilet Seat Without Armrests, Shower Seat without Backrest, Hand Held Shower M2 OT-IP Current Condition Start: 07/10/21 13:11 Freq: Status: Active Protocol: Document 07/10/21 09:13 [facility] (Rec: 07/10/21 13:29 [facility] [id number]) Occupational Therapy Current Condition Current Condition Evaluation Date 07/10/21 Treatment Diagnosis S/P L4-5 TLIF Diagnosis Onset Date 07/09/21 Post Operative Precautions Lumbar Precautions Log Roll,No Twisting,Limit Bending,Lifting Restriction of 10 lbs,Gait Belt above Incisional Area M3 OT- IP Subjective and Pain Start: 07/10/21 13:11 Freq: Status: Active Protocol: Document 07/10/21 09:13 [facility] (Rec: 07/10/21 13:29 [facility] [id number]) OT- Subjective Occupational Therapy Visit Type Type Initial Evaluation Visit Start Time 09:13 Visit Stop Time 09:55 Total Visit Minutes 42 Occupational Therapy Visit Comments Patient Comments Pt's in the room and able to do caregiver training. Patient/Caregiver Goals To go home. OT Pain Assessment Pain When Pain Assessed At Rest Pain Present Pain Present Pain Reported Location Back Intensity 3 Scale Used Numeric (0 - 10) M4 OT- IP ADL's Start: 07/10/21 13:11 Freq: Status: Active Protocol: Document 07/10/21 09:13 [facility] (Rec: 07/10/21 13:29 [facility] [id number]) OT YRZ-Bavf-Callwju Comments OT Self-Feeding Comments Not at meal time. OT ADL-Grooming General Evaluation Grooming Ability Independent Areas Needing Assistance Retrieving/Set-up of Grooming Items OT ADL-Oral Care General Eval Oral Care Ability Independent Comments Oral Care Comments VC to hinge at her hips or just spit into the cup to best follow her back precautions. OT ADL-Dressing General Eval Lower Body Dressing Ability Maximum Assistance Comments OT Dressing Comments Pt states does not wear socks and that her will be able to assist her as needed. Pt issued a deputy county attorney to assist for LB dressing needs. OT ADL-Toileting Comments OT Toileting Comments Pt states has to go often at night and suggested to wear pads and also would benefit from a BSC a home. Pt states to borrow one. pt tends to wipe form the front and able to simulate wiping while seated on the toilet and able to follow her back precautions appropriately. OT ADL-Bathing Comments OT Bathing Comments NOt performed. Educated best to cover the dressing and have her to assist. M5 OT- IP IADL's Start: 07/10/21 13:11 Freq: Status: Active Protocol: Document 07/10/21 09:13 [facility] (Rec: 07/10/21 13:29 [facility] [id number]) OT-Instrumental Activities of Daily Living Deficits IADL Deficits Identified Deficits Home Safety Awareness Awareness of Need for Assistance at Home Good Awareness Ability to Problem Solve Emergency Able to Problem Solve Situations Home Safety Comments Pt's to be able to home to be able to assist pt for all needs. M6 OT- IP Functional Cognition Start: 07/10/21 13:11 Freq: Status: Active Protocol: Document 07/10/21 09:13 [facility] (Rec: 07/10/21 13:29 [facility] [id number]) Cognitive Factors Limiting Selfcare Function Cognitive Ability Level of Alertness Alert Patient Orientation Name,Age,Birthday,Month,Date, Year,Day of Week,Place, Situation Attention Span Ability Capable of Focused Attention, Capable of Sustained Attention Ability to Follow Commands Able to Follow Multi-Step Commands Memory Description No Deficits Noted Safety Awareness No Deficits Noted Cognitive Comments Cognitive Assessment Comments NO cognitive issues notes on OT eval. OT- Vision and Hearing OT- Hearing Assessment OT- Hearing Assessment WFL OT- Vision Assessment Visual Acuity Glasses All The Time M7 OT- IP Mobility and Balance Start: 07/10/21 13:11 Freq: Status: Active Protocol: Document 07/10/21 09:13 [facility] (Rec: 07/10/21 13:29 [facility] [id number]) OT- Bed Mobility Assessment Rolling Type of Rolling Roll to Left Supine to Sit Supine to Sit Assist Contact Guard Assistance OT-Transfer Assessment Sit to and From Stand Sit to and from Stand Contact Guard Assistance Transfers Transfer Ability Contact Guard Assistance Technique Transfer Destination Bed,Chair Transfer Technique Stand Step Pivot Devices Transfer Assistive Devices Gait Belt,Front Wheeled Walker Comments Mobility Comments vc for education of log rolling. Able to educated pt' s how to ashkan/doff the gait belt and how to provide assist as needed. Pt needing initial cues to push up from the bed and ease herself down by reaching to the armrest when coming back to sit. Pt' able to show good safety to be able to assist pt for transfer needs. Pt states to sleep in the recliner initially and that her will be next to her in the double recliner. OT- Gait Assessment Comments Gait Ability Comments CGA with FWW. OT- Balance Assessment Sitting Balance and Reactions Static Sitting Balance Ability Good Dynamic Sitting Balance Ability Good Standing Balance and Reactions Static Standing Balance Ability Fair M8 OT- IP Objective Assessments Start: 07/10/21 13:11 Freq: Status: Active Protocol: Document 07/10/21 09:13 [facility] (Rec: 07/10/21 13:29 [facility] [id number]) OT-Muscle Tone Assessment Muscle Tone WNL Yes M9 OT- IP Assessment and Plan Start: 07/10/21 13:11 Freq: Status: Active Protocol: Document 07/10/21 09:13 [facility] (Rec: 07/10/21 13:29 [facility] [id number]) OT Summary Assessment and Plan Potential Rehabilitation Potential Excellent Analytic Complexity at Evaluation Low Summary OT Impairments Pain,Balance,Functional Mobility,Dressing,Toileting, Bathing,Toilet Transfers, Shower Transfers Progress Towards Goals Progressing Toward Goals Assessment Summary Pt low complexity and main barriers are pain, and now needing one person assist for ADL and mobility needs. Pt's has participated in caregiver training and able to show good safety and demonstration to be able to assist pt for all transfer and ADL needs. Pt looking to go home with her today. Goals Grooming Goal Independent Dressing Goal Independent Toileting Goal Independent Bathing Goal Independent Toilet Transfer Goal Independent Shower Transfer Goal Independent Patient/Caregiver Education Goal Demonstrate Post-Op Precautions,Caregiver Independent Assisting Patient Days to Meet Goals 4 Frequency of Treatment Frequency Of Treatment Once a Day Treatment Plan OT Treatment Plan ADL Training,Functional Mobility,Patient/Family Education,Discharge Planning Other Treatment Recommendations and Next shower if still here Treatment Focus Discharge Recommendations OT Discharge Recommendations Home with Assistance Home Equipment Needs BSC, deputy county attorney issued Transportation Needs at Discharge Private Vehicle
--- NOTE | 2021-07-10 10:27 | PM.DS.1 ---
History of Present Illness History of Present Illness Date Patient Seen: 07/10/21 Time Patient Seen: 10:28 Chief complaint: Back pain Narrative: See progress note Discharge Providers Provider Date of admission: 07/09/21 11:28 Discharge Date: 07/10/21 Primary care physician: Nir Lofton MD Consults: 07/09/21 17:48 Consult to Occupational Therapy Evaluate & Treat Comment: Physician Instructions: Evaluate and treat Consult to Physical Therapy Evaluate & Treat Comment: Physician Instructions: Evaluate and Treat Discharge provider: Kishor Mathur PA-C Summary Hospital Course Discharge Diagnosis: 1. L4-5 spinal stenosis with neurogenic claudication 2. L4-5 spondylosis with radiculopathy Hospital Course: 1. L4-5 Postero-lateral and posterior interbody fusion 2. L4-5 interbody cage placement. 3. L4-5 decompressive laminectomy with bilateral facetecomies 4. L4-5 Posterior non-segmental instrumentation 5. Carlotta of bone marrow from iliac crest 6. Utilization of microsurgical technique and operating microscope Same procedure as scheduled: Yes Indications: Patient has been having chronic back pain and worsening lumbar radiculopathy. Patient failed multiple conservative management with worsening pain weakness and numbness in her lower extremity.? Patient has been having difficulty performing activity of daily living.? After discussing risks benefits of treatment options, patient elected proceed with surgery. Surgeon: Tyree Baptiste [employer] Sales Representative: Kishor Mathur Click Yes if Unassisted: No Anesthesia Type: General Operative Notes Closure Type: primary Specimen(s): none sent Prosthetic devices, grafts, tissues, transplants, or devices: Globus revolve screws, Rise cage Estimated Blood Loss (mL): 50 Blood products transfused: none Patient admitted to the hospital for the above-mentioned procedure. Patient taken to the operating room. Patient back in her room recovering well as in stable condition. Patient will work with physical therapy and be discharged home today if safe for home environment. Exam Vital Signs (past 8 hours): - 07/10/21 04:08 07/10/21 07:52 Temperature 97.8 F 98.5 F Pulse Rate 82 85 Respiratory Rate 16 16 Blood Pressure 113/72 111/77 Pulse Oximetry 96 98 Oxygen Delivery Method Nasal Cannula Oxygen Flow Rate 0 Narrative Exam Narrative: See progress note PFSH Medical History (Updated 07/02/21 @ 09:55 by Rachna Ortiz RN) Adrenal adenoma Anxiety Bipolar 2 disorder COPD (chronic obstructive pulmonary disease) Depression Diverticulitis Fibromyalgia GERD (gastroesophageal reflux disease) Headache, migraine Hepatitis C HTN (hypertension) Hyperlipidemia Kidney stones Lupus Pneumonia Raynauds disease Surgical History (Updated 07/02/21 @ 10:15 by Rachna Ortiz RN) H/O: hysterectomy History of esophagogastroduodenoscopy (EGD) (05/09/21) History of left knee replacement History of right hip replacement History of right knee joint replacement Hx of tonsillectomy Social History household members: spouse Smoking Status: Current every day smoker alcohol intake: former Discharge Assessment & Plan Assessment and Plan Assessment: Stable Plan of Treatment: Limit bending, twisting, lifting. Discharge home today in stable condition. Discharge Plan Discharge Plan Patient Disposition: Home Discharge orders & Medications Prescriptions: New hydroxyzine pamoate 25 mg Capsule 25 mg PO Q4HR PRN (Reason: Nausea And Vomiting) Qty: 20 RF: 0 oxycodone 5 mg Tablet 10 mg PO Q3HR PRN (Reason: Pain, Severe (7-10)) Qty: 60 RF: 0 Continued simvastatin 40 mg Tablet 40 mg PO DAILY Qty: 0 RF: 0 prazosin 5 mg capsule 5 mg PO BEDTIME RF: 0 methocarbamol 750 mg tablet 750 mg PO DAILY PRN (Reason: Muscle Spasm) RF: 0 hydrochlorothiazide 25 mg tablet 25 mg PO DAILY RF: 0 ziprasidone HCl 40 mg capsule 40 mg PO QPM RF: 0 omeprazole magnesium [Prilosec OTC] 20 mg Tablet,Delayed Release (Dr/Ec) 20 mg PO DAILY RF: 0 fluoxetine 40 mg Capsule 40 mg PO DAILY RF: 0 meloxicam 15 mg Tablet 15 mg PO DAILY RF: 0 zolpidem 5 mg Tablet 5 mg PO BEDTIME RF: 0 lamotrigine 100 mg Tablet 300 mg PO BEDTIME RF: 0 diphenhydramine-acetaminophen [Tylenol PM Extra Strength] 25-500 mg Tablet 2 tab PO BEDTIME RF: 0 melatonin 10 mg Capsule 20 mg PO BEDTIME RF: 0 Discontinued aspirin [Aspir-81] 81 mg Tablet,Delayed Release (Dr/Ec) 81 mg PO DAILY Qty: 0 RF: 0 Follow up/Referrals: Nir Lofton MD [Primary Care Provider] - Tyree Baptiste MD [Physician] - (Two weeks) Diet/Activity/Treatments Diet: Diet as Tolerated Activity: Limit bending, twisting, lifting Skin/Wound/Dressing Care Report to your healthcare provider any signs of infection, such as:: chills, fever, increased pain, unusual drainage and unusual redness Dressing: Keep dressing clean and dry Visit Report/Discharge Packet Instructions: DI for Heart Failure, DI for Prescription Opioid Use, DI for Transforaminal Lumbar Interbody Fusion Stand Alone Forms: Surgery Discharge Discharge Data Primary Care Provider: Nir Lofton VTE Deep Vein Thrombosis/Pulmonary Embolism Present on Admission: No
[2021-07-10 10:45] VITALS: BMI 30.1
--- NOTE | 2021-07-10 10:45 | PT.IIE ---
Current Diagnoses Other forms of scoliosis, lumbar region (07/09/21) Spinal stenosis, lumbar region with neurogenic claudication (07/09/21) Surgery Performed Operation Date: 07/09/21 13:45 Actual Procedures p L4-5 TLIF - Tyree Baptiste MD Medical History (Last Updated 07/02/21 @ 09:55 by Rachna Ortiz RN) Adrenal adenoma Anxiety Bipolar 2 disorder COPD (chronic obstructive pulmonary disease) Depression Diverticulitis Fibromyalgia GERD (gastroesophageal reflux disease) Headache, migraine Hepatitis C HTN (hypertension) Hyperlipidemia Kidney stones Lupus Pneumonia Raynauds disease Physical Therapy Inpatient Evaluation/Re-Eval M1 PT/OT-IP Prior Functional Status Start: 07/10/21 11:19 Freq: NEEDED Status: Active Protocol: Document 07/10/21 10:45 AB (Rec: 07/10/21 11:29 AB [email or web address]) Medical Review Prior Functional Status Medical History Reviewed Yes Communication able to make needs known Mobility and Gait pt stated that she is independent with all mobilities and ambulation without AD Social History Household Members spouse Living Arrangements House Number of Floors (Floors) One Floor Number of Stairs To Enter/Railing? ramp to enter Home Environment Standard Height Toilet,Tub/ Shower,Ramp Home Equipment Front Wheel Walker,Raised Toilet Seat Without Armrests, Shower Seat without Backrest, Hand Held Shower M2 PT-IP Current Condition Start: 07/10/21 11:19 Freq: NEEDED Status: Active Protocol: Document 07/10/21 10:45 AB (Rec: 07/10/21 11:29 AB [email or web address]) Physical Therapy Current Condition Current Condition Evaluation Date 07/10/21 Treatment Diagnosis s/p L4-5 TLIF; difficulty in walking Onset Date 07/09/21 M3 PT-IP Subjective Start: 07/10/21 11:19 Freq: NEEDED Status: Active Protocol: Document 07/10/21 10:45 AB (Rec: 07/10/21 11:29 AB [email or web address]) Subjective Physical Therapy Visit Type Type Initial Evaluation Visit Start Time 10:45 Visit Stop Time 11:00 Total Visit Minutes 15 Number of TRASH HAULER Visits 0 Physical Therapy Visit Comments Patient Comments agreed to do PT Therapy Pain Assessment Pain When Pain Assessed At Rest Pain Present Pain Present Pain Reported Location Back Intensity 7 Scale Used Numeric (0 - 10) Pain Management Techniques Distraction,Modification of Treatment,Re-positioning, Timing of Activity with Medications M4 PT-IP Mobility and Gait Start: 07/10/21 11:19 Freq: NEEDED Status: Active Protocol: Document 07/10/21 10:45 AB (Rec: 07/10/21 11:29 AB [email or web address]) PT-Bed Mobility Assessment Rolling Type of Rolling Log Rolling Level of Assist Standby Assistance Supine to Sit Supine to Sit Standby Assistance Sit to Supine Sit to Supine Standby Assistance Scooting Scooting to Edge of Bed Standby Assistance Scooting Up and Down in Bed Standby Assistance PT-Transfer Assessment Sit to and From Stand Sit to and from Stand Standby Assistance Equipment Transfer Assistive Device Gait Belt,Front Wheeled Walker Orthotic/Prosthetic Devices or Brace: No Comments Mobility Comments educated on back precautions and pt was able to recall. completed supine to sit log roll SBA. completed sit to stand SBA and ambulated ~ 100 ft using FWW SBA. presents with narrow ANGUS. cued for upright posture and increasing ANGUS. Pt presents with R sided scoliosis. c/o LLE numbness towards end of ambulation. pt stated that this is chronic. pt requested to go back to bed after ambulation and completed sit to supine SBA log roll. positioned in bed. call light and table placed within reach. Gait Assessment Gait Gait Assistance Required: Standby Assistance Distance (Feet) 100 Able to Maintain Weight Bearing Status Yes During Gait Assistive Devices Assistive Device Gait Belt,Front Wheeled Walker Orthotic/Prosthetic Devices or Brace: No Gait Deviations General Gait Pattern Antalgic,Decreased Stride Length,Decreased Feet Clearance,Narrow Based Gait Factors Limiting Gait Function Factors Limiting Gait Function Decreased Activity Tolerance, Decreased Sensation,Decreased Strength,Limited Range of Motion,Pain,Poor Balance,Poor Safety Awareness PT-Balance Assessment Sitting Balance and Reactions Static Sitting Balance Ability Good Dynamic Sitting Balance Ability Good Standing Balance and Reactions Static Standing Balance Ability Fair Dynamic Standing Balance Ability Fair Device Used FWW M5 PT-IP Objective Assessments Start: 07/10/21 11:19 Freq: NEEDED Status: Active Protocol: Document 07/10/21 10:45 AB (Rec: 07/10/21 11:29 AB [email or web address]) Orientation Orientation/Cognition Level of Alertness Alert Orientation Name,Age,Place,Situation Language Function Ability No Deficits Noted Safety Awareness Understands Safety Issues Memory Description Short Term Impaired Gross Range of Motion Lower Extremity ROM Assessment Within Functional Limits Strength Lower Extremity Strength Hip 4-/5 Knee 4-/5 Coordination Assessment Gross Coordination Gross Coordination WNL Sensation Assessment Sensation Sensation Description Numbness Comments Sensation Comments LLE numbness during ambulation Muscle Tone Muscle Tone WNL Yes M6 PT-IP Treatment Start: 07/10/21 11:19 Freq: NEEDED Status: Active Protocol: Document 07/10/21 10:45 AB (Rec: 07/10/21 11:29 AB [email or web address]) Physical Therapy Treatment Education Education Provided Precautions,Weight Bearing Status,Safety M7 PT-IP Assessment and Plan Start: 07/10/21 11:19 Freq: NEEDED Status: Active Protocol: Document 07/10/21 10:45 AB (Rec: 07/10/21 11:29 AB [email or web address]) PT Summary Assessment and Plan Potential Rehabilitation Potential Good Status of Condition at Evaluation Stable Summary Impairments Pain,ROM,Strength,Balance, Coordination,Sensation,Tone, Cognition,Bed Mobility, Transfers,Gait,Activity Tolerance Assessment Summary pt requiring SBA with mobility and plans to go home with spouse to assist her. pt may go home when medically stable. Goals Bed Mobility Goal Independent Transfer Goal Independent,Front Wheeled Walker Gait Goal Independent,Front Wheel Walker Gait Distance 150 Other Goals ambulation without AD 200 ft mod I Days to Meet Goals 3 Frequency of Treatment Frequency Of Treatment Twice a Day Treatment Plan Physical Therapy Treatment Plan Bed Mobility Training,Transfer Training,Gait Training, Therapeutic Exercise,Balance Retraining,Post Op Education, Discharge Planning,Hot or Cold Pack,Neuromuscular Re-ed, Coordination Retraining,Manual Therapy Precautions Lumbar Precautions Log Roll,No Twisting,Limit Bending,Lifting Restriction of 10 lbs,Gait Belt above Incisional Area Recommendations To Nursing Amount of Assist Needed Standby Assistance Discharge Recommendations PT Discharge Recommendations Home with Assistance Transportation Needs at Discharge Private Vehicle
[2021-07-10] MEDS: INFLUENZA HD VACCINE 0.7 ML SYRINGE IM (11:51)
--- NOTE | 2021-07-10 13:07 | PC.NURSE ---
Patient cleared by PT and OT, and patient ready for discharge to home. Discharge instructions and home care handouts reviewed with patient and her , they state understanding and have no further questions or concerns at this time. Coversite to back CDI. IV removed intact. Patient states she has follow up appointments already scheduled. Escorted out via wheelchair by coordinator to be discharged to home with her .
== END 2021-07-10 13:09 | disposition home or self-care (01) | DRG 454 ==
LOC: OR 11:28 → AC 11:31
PROVIDERS: Admitting Provider Orthopaedic Surgery Orthopaedic Surgery of the Spine; PCP Family Medicine; Referring Provider Physician Assistant; Visit Provider Orthopaedic Surgery Orthopaedic Surgery of the Spine
PROC: 0SG00AJ Fusion of Lumbar Vertebral Joint with Interbody Fusion Device, Posterior Approach, Anterior Column, Open Approach (ICD-10-PCS; principal; 2021-07-09 13:45)
DX: M48.062 Spinal stenosis, lumbar region with neurogenic claudication (principal); F31.81 Bipolar II disorder; M41.86 Other forms of scoliosis, lumbar region; M47.26 Other spondylosis with radiculopathy, lumbar region; F17.200 Nicotine dependence, unspecified, uncomplicated; E78.5 Hyperlipidemia, unspecified; I10 Essential (primary) hypertension; K21.9 Gastro-esophageal reflux disease without esophagitis; Z20.822 Contact with and (suspected) exposure to COVID-19; Z23 Encounter for immunization
CPT/HCPCS: 72100; 76000; 82962; 87635; 90471; 90662; 97161; 97165; 97530; 97535; C1776; C9803; C9290; J0171; J0330; J0690; J1100; J1170; J2060; J2405; J2704; J3010

== ENCOUNTER → 2021-11-15 08:40 | Outpatient (CLI) | payer MEDICARE, BC, SELFPAY ==
[2021-07-09 11:56] VITALS: BMI 30.1
--- NOTE | 2021-11-15 | DI.RAD.S_ITS ---
PROCEDURE: XR SHOULDER RT MIN 2V INDICATIONS: Pain in right shoulder TECHNIQUE: 3 views of the shoulder were acquired. COMPARISON: None. FINDINGS: Bones: No fractures or dislocations. No suspicious bony lesions. Visualized ribs appear intact. Mild acromioclavicular joint osteoarthritis. Soft tissues: No suspicious soft tissue calcifications. IMPRESSION: Mild right acromioclavicular joint osteoarthritis. No acute osseous lesion. If symptoms and/or clinical suspicion for pathology persists, further assessment with repeat radiographs (7-10 days) or advanced imaging (e.g. CT, MRI or bone scan) should be considered. Dictated by: Corrina Greene MD, PhD on 11/15/2021 at 10:47 Approved by: Corrina Greene MD, PhD on 11/15/2021 at 10:48
== END ==
PROVIDERS: PCP Family Medicine; Referring Provider Student in an Organized Health Care Education/Training Program; Visit Provider Student in an Organized Health Care Education/Training Program
DX: M25.511 Pain in right shoulder (principal); M19.011 Primary osteoarthritis, right shoulder
CPT/HCPCS: 73030

== ENCOUNTER → 2022-01-22 13:07 | Outpatient (CLI) | payer MEDICARE, BC, SELFPAY ==
[2021-07-09 11:56] VITALS: BMI 30.1
--- NOTE | 2022-01-22 | DI.MRI.S_ITS ---
PROCEDURE: MR LUMBAR SPINE WO CON INDICATIONS: Low back pain, unspecified TECHNIQUE: Noncontrast sagittal T1 spin echo and T2 fast echo, coronal T2, sagittal STIR, and T2 fast spin echo through the lumbar spine. COMPARISON: [facility], CR, XR LUMBAR SPINE 2 OR 3 VIEWS, 01/15/2022, 9:25. [facility], MR, MR LUMBAR SPINE WO CON, 01/07/2021, 10:34. FINDINGS: Image quality: Excellent. Alignment and Curvature: 5 lumbar type vertebral bodies are present by plain film. Moderate leftward curvature of the upper lumbar spine. Loss of normal lumbar lordosis. 6 mm of retrolisthesis of L1 on L2. 4 mm of retrolisthesis of L2 on L3. Bone Marrow: Marrow is of normal overall signal. No acute vertebral body compression fractures. Posterior fusion hardware at L4-L5. Moderate reactive signal within the endplates adjacent to the L1-L2 and L2-L3 intervertebral discs. Mild reactive signal adjacent the remaining lumbar and lower thoracic intervertebral discs. Spinal Cord: Conus medullaris terminates at the mid L2 level. Visualized cord demonstrates normal signal and size. Paraspinous Soft Tissues: No paravertebral masses. T12-L1: Moderate disc height loss and desiccation. Mild diffuse disc bulge. Mild facet and ligamentum flavum hypertrophy. Mild canal stenosis. Mild bilateral foraminal stenosis. No significant change. L1-L2: Moderate disc height loss and desiccation. Mild diffuse disc bulge with small superimposed broad-based right posterolateral protrusion. Mild facet and ligamentum flavum hypertrophy. Mild canal stenosis. Moderate right and mild left foraminal stenosis. L2-L3: Moderate disc height loss and desiccation. Moderate diffuse disc bulge with superimposed right far lateral protrusion and superimposed new central disc extrusion, which extends inferiorly within the anterior epidural space. Mild facet and ligamentum flavum hypertrophy. Mild epidural lipomatosis. Increased, severe canal stenosis. There is increased, severe right and moderate to severe left foraminal stenosis with right greater than left L2 nerve root compression. L3-L4: Moderate disc desiccation. Mild disc height loss and diffuse disc bulge. Mild facet and ligamentum flavum hypertrophy. Mild epidural lipomatosis. Mild canal stenosis. Moderate bilateral foraminal stenosis. No significant change. L4-L5: Posterior fusion hardware. Moderate disc desiccation. Mild diffuse disc bulge. Mild facet and ligamentum flavum hypertrophy. Mild canal stenosis. Moderate bilateral foraminal stenosis. No significant change. L5-S1: Mild bilateral facet and ligamentum flavum hypertrophy. Mild canal stenosis. Mild bilateral foraminal stenosis. IMPRESSION: 1. Postsurgical sequelae. 2. Multilevel degenerative disc and facet disease, as well as ligamentum flavum hypertrophy and epidural lipomatosis. 3. Multilevel canal stenoses, worst at L2-L3 where there is increased, severe canal stenosis. 4. Multilevel foraminal stenoses, worst at L2-L3 where there is associated intraforaminal nerve root compression. Recommend correlation with clinical symptoms to ascertain relevance of this finding. Dictated by: Ja Jaquez M.D. on 01/22/2022 at 15:09 Approved by: Ja Jaquez M.D. on 01/22/2022 at 16:48
== END ==
PROVIDERS: PCP Family Medicine; Referring Provider Orthopaedic Surgery; Visit Provider Orthopaedic Surgery
DX: M51.36 Other intervertebral disc degeneration, lumbar region (principal); M48.061 Spinal stenosis, lumbar region without neurogenic claudication; M54.50 Low back pain, unspecified; Z98.1 Arthrodesis status
CPT/HCPCS: 72148

== ENCOUNTER → 2022-02-15 12:11 | Outpatient (CLI) | payer MEDICARE, BC, SELFPAY ==
[2021-07-09 11:56] VITALS: BMI 30.1
--- NOTE | 2022-02-15 | DI.CT.S_ITS ---
PROCEDURE: CT LUMBAR SPINE WO CON INDICATIONS: Spinal stenosis, lumbar region TECHNIQUE: Noncontrast 3 mm thick sections acquired from the T12 level to the sacrum. Sagittal and coronal reformats were constructed. For radiation dose reduction, the following was used: automated exposure control. COMPARISON: [facility], MR, MR LUMBAR SPINE WO CON, 01/22/2022, 13:44. [facility], CT, CT ABDOMEN PELVIS W CON, 05/05/2020, 14:14. [facility], CR, XR LUMBAR SPINE 2 OR 3 VIEWS, 01/15/2022, 9:25. FINDINGS: Image quality: There is artifact associated with the metallic hardware. Bones: No acute vertebral body compression fractures. Minimal thoracolumbar junction anterior wedge deformities are seen, as before. No suspicious lytic or blastic bony lesions. No pars defects. Right hip arthroplasty hardware can be seen on the museum or zoo director image. This patient has transitional lumbar anatomy. For the purposes of this examination, the level with the last well-developed disc space is considered to be L5-S1. The L5 level is transitional and partially sacralized. This numbering scheme is chosen to remain consistent the prior MRI report dated 01/22/2022. There is mild retrolisthesis seen at the L1-L2 and L2-L3 levels. T12-L1: At least moderate loss of disc height is seen, which is worse on the right than on the left. Vacuum disc phenomenon is seen at this level. Mild generalized disc bulge is seen. There is mild right-sided and no left-sided neural foraminal narrowing. No central canal narrowing is seen. L1-L2: Moderate to severe loss of disc height is seen. Endplate irregularity and sclerosis can be seen. Bridging endplate osteophytes are seen on the right side, as on series 6, image 24. Moderate disc bulge is seen, which is eccentric to the right. There is moderate to severe right-sided and moderate left-sided neural foraminal narrowing. Mild central canal narrowing is seen. L2-L3: Moderate loss disc height is seen. Vacuum disc phenomenon is seen at this level. At least moderate disc bulge is seen. Moderate facet joint hypertrophy is seen. Associated hypertrophy of the ligamentum flavum can be seen. Moderate to severe bilateral neural foraminal narrowing can be seen. Severe central canal narrowing is seen at this level. L3-L4: The disc height is well preserved. Moderate generalized disc bulge is seen. Moderate to prominent facet hypertrophy is seen. Associated hypertrophy of the ligamentum flavum can be seen. There is at least moderate bilateral neural foraminal narrowing seen. At least moderate central canal narrowing is seen. L4-L5: Postoperative changes seen at this level, with bilateral pedicle screws. The screws appear well placed. Vertical fixation rods are seen. There is a disc spacer seen at this level. No findings of hardware failure or hardware loosening are seen. Mild generalized disc bulge is seen. There is moderate left-sided and no significant right-sided neural foraminal narrowing. Prior right hemilaminectomy change can be seen. Mild central narrowing is seen. L5-S1: The disc height is relatively well preserved. Mild generalized disc bulge is seen. No significant neural foraminal or central canal narrowing can be seen. Soft tissues: No retroperitoneal hematomas. Low-density masses can be seen involving both adrenal glands, measuring up to 5.5 cm on the right and 3.6 cm on the left. Both of these lesions measure -14 Hounsfield units. Visualized aorta is normal in caliber. Atherosclerotic calcification is noted. IMPRESSION: Intact appearing L4-L5 fixation hardware. Multiple levels of degenerative change are seen, which are overall worst at L2-L3. The degenerative changes are similar to the recent prior MRI examination. Incidental note is made of: Bilateral benign lipid rich adrenal adenomas. Dictated by: Salo Bee M.D. on 02/15/2022 at 11:43 Approved by: Salo Bee M.D. on 02/15/2022 at 11:51
[2022-02-15 13:12] LABS: Add Manual Diff / Slide Review NO; Basophils Absolute Auto 100 /uL (0-100); Basophils Percent Auto 0.8 % (0-2); Eosinophils Absolute Auto 100 /uL (0-450); Hematocrit 41.9 % (36-46); Hemoglobin 14.7 g/dL (12.0-16.0); Lymphocytes Absolute Auto 2200 /uL (1100-4500); Lymphocytes Percent Auto 20.4 % (25-40); Mean Corpuscular HGB Conc 35.1 % (30-36); Mean Corpuscular Volume 91.2 fL (80-100); Monocytes Absolute Auto 700 /uL (0-900); Monocytes Percent Auto 6.5 % (3-14); Neutrophils Absolute Auto 7700 /uL (1500-7000); Neutrophils Percent Auto 71.3 % (50-75); Platelet Count 353 X10^3/uL (150-400); Red Cell Distribution Width 13.8 % (11.6-14.8); White Blood Cell Count 10.8 X10^3/uL (4.5-11.0)
[2022-02-15 13:24] LABS: BUN Creatinine Ratio 17.8 (6-22); Blood Urea Nitrogen 18 mg/dL (7-17); Calcium 10.2 mg/dL (8.4-10.2); Carbon Dioxide 29 mmol/L (22-32); Chloride 104 mmol/L (98-107); Estimated Glomerular Filt Rate > 60 mL/min (>60); Glucose 115 mg/dL (80-110); HEMOLYSIS < 15 (0-50); Potassium 5.2 mmol/L (3.4-5.1); Sodium 139 mmol/L (137-145)
== END ==
PROVIDERS: PCP Family Medicine; Referring Provider Orthopaedic Surgery Orthopaedic Surgery of the Spine; Visit Provider Orthopaedic Surgery Orthopaedic Surgery of the Spine
DX: Z01.818 Encounter for other preprocedural examination (principal); Z01.812 Encounter for preprocedural laboratory examination; M48.061 Spinal stenosis, lumbar region without neurogenic claudication; M47.816 Spondylosis without myelopathy or radiculopathy, lumbar region; D35.02 Benign neoplasm of left adrenal gland; D35.01 Benign neoplasm of right adrenal gland
CPT/HCPCS: 36415; 72131; 80048; 85025; 93005; 93010

== ENCOUNTER → 2022-02-22 09:48 | Outpatient (CLI) | payer MEDICARE, BC, SELFPAY ==
[2021-07-09 11:56] VITALS: BMI 30.1
[2022-02-22 10:30] LABS: COVID19 -Nasal RAPID Negative (Negative)
== END ==
PROVIDERS: PCP Family Medicine; Referring Provider Orthopaedic Surgery Orthopaedic Surgery of the Spine; Visit Provider Orthopaedic Surgery Orthopaedic Surgery of the Spine
DX: Z20.822 Contact with and (suspected) exposure to COVID-19 (principal)
CPT/HCPCS: 87635; C9803

== ENCOUNTER 2022-02-25 05:56 | Inpatient (IN) | payer MEDICARE, BC, SELFPAY ==
[2021-07-09 11:56] VITALS: BMI 30.1
[2022-02-21 10:45] VITALS: BMI 28.3
[2022-02-25] VITALS (15 sets, daily range): BP systolic 95–126; BP diastolic 63–85; PULSE 90–112; RESP 14–18; TEMP 36.1–36.7; O2SAT 92–99; BMI 28.3
[2022-02-25] MEDS: ACETAMINOPHEN 325 MG TABLET 975 MG PO (07:22)
[2022-02-25] MEDS: LACTATED RINGERS 1,000 ML 42 ML IV ×4 (07:23→13:03)
--- NOTE | 2022-02-25 07:53 | PM.PREOP ---
Pre-operative Note COVID-19 COVID-19 status: Negative Result date/Date tested (Pos, Neg/Pending): 02/24/22 Criteria for continued procedure: Expected advancement of disease process, Possibility delay results in more complex future surgery or treatment, Increased loss of function, Continuing or worsening of significant or severe pain, Deterioration of the patient's condition or overall health and Delay expected to result in less-positive ultimate med/surg outcome Interval Note History & Physical reviewed/Exam performed by Physician: Yes Changes to H&P: No
[2022-02-25] MEDS: CEFAZOLIN 2 GM/20 ML SYRINGE IV ×3 (08:00→20:36)
[2022-02-25] MEDS: BUPIVACAINE 0.25% W/ EPI 30 ML VIAL INJ (08:48)
[2022-02-25] MEDS: BUPIVACAINE LIPOSOME 266 MG/20 ML VIAL INJ (08:49)
--- NOTE | 2022-02-25 14:00 | DI.RAD.S_ITS ---
PROCEDURE: XR LUMBAR SPINE 2-3V INDICATIONS: TLIF L2-3, L3-4 TECHNIQUE: 6 nondiagnostic intraoperative fluoroscopic views of the lumbar spine. COMPARISON: [facility], CT, CT LUMBAR SPINE WO CON, 02/15/2022, 12:21. [facility], CR, XR LUMBAR SPINE 2-3V, 07/09/2021, 14:37. FINDINGS: Six nondiagnostic intraoperative fluoroscopic views of the lumbar spine demonstrate changes related to TLIF at L2-L3 and L3-L4. Previously present fixation hardware at L4-L5 is also redemonstrated. Interbody devices are present at the operative levels. There is no gross evidence of acute hardware failure. IMPRESSION: Intraoperative images demonstrating TLIF at L2-L3 and L3-L4. Dictated by: Timothy Villafuerte M.D. on 02/25/2022 at 14:24 Approved by: Timothy Villafuerte M.D. on 02/25/2022 at 14:26
--- NOTE | 2022-02-25 14:03 | PM.OP.1 ---
Operative Date/Time/Diagnoses Date of procedure: 02/25/22 Time of procedure: 07:45 Pre-op diagnosis: 1. L1-2, L2-3, L3-4 spinal stenosis with neurogenic claudication 2. Lumbar scoliosis 3. Hx of L4-5 TLIF with hardware Post-op diagnosis: same Procedure & Clinicians Procedure: 1. L1-2, L2-3, L3-4 Postero-lateral and posterior interbody fusion 2. L2-3, L3-4 interbody cage placement. 3. L1-2, L2-3, L3-4 decompressive laminectomy with bilateral facetecomies 4. L4-5 hemilaminectomy and exploration of fusion 5. L1-2, L2-3, L3-4, L4-5 Posterior segmental instrumentation 6. L1-2, L4-5 posterolateral fusion 7. [place] of bone marrow from iliac crest 8. Utilization of microsurgical technique and operating microscope 9. Utilization of robotic assistic fusion Same procedure as scheduled: Yes Indications: Patient has been having chronic back pain and worsening lumbar radiculopathy. Patient failed multiple conservative management with worsening pain weakness and numbness in her lower extremity. Patient has been having difficulty performing activity of daily living. After discussing risks benefits of treatment options, patient elected proceed with surgery. Surgeon: Tyree Baptiste Director Medical Surgical: Eve Crowell Click Yes if Unassisted: No Anesthesia Type: General Operative Notes Closure Type: primary Specimen(s): none sent Prosthetic devices, grafts, tissues, transplants, or devices: Globus CREO MIS screws, Rise cages Applied: catheter Estimated Blood Loss (mL): 350 Blood products transfused: none Procedure in detail: Patient was seen in the preoperative area. Risks and benefits of the surgery was discussed with the patient. Informed consent was obtained from the patient and placed in the chart. Surgical site was marked. Patient was taken to the operative room. General anesthesia was administered. Prophylactic antibiotic was given to the patient less than 30 min before the incision was made. Patient was placed into a prone position on the Nikos table. Patient's back was then prepped and draped in the sterile fashion. Time-out was performed at this time. After patient was prepped and draped, patient's PSIS was palpated and marked bilaterally. Small 1 cm incision was made over the PSIS for placement of the reference probes. Two trocar was placed into the PSIS 1 on each side. The reference probe was attached to the trocar of the reference apparatus. At this time the C-arm imaging was used to confirm AP and lateral of L1, L2,L3, L4, L5 vertebrae and merged the C-arm imaging using the Solutionreach robotic navigation system with the CT of the lumbar spine. After successful merging was completed and confirmed, skin marker was used to kinza out the skin incision using the Solutionreach robotic arm. Bilateral incision was made at this time. Using patient's previous scar incision was made over the L1, L2, L3, L4, L5 interval on the left side. Fascia was incised in line with skin incision. Patient's previously placed hardware over the L4-5 level was identified by dissecting down to the level the hardware using a Bovie and a Quintana. The locking caps which was removed using Jamalonus screwdriver. The locking eros was then removed from the tulips of the pedicle screws using a Vimal. The pedicle screws were then removed using the screwdriver. The screws were found to have good purchase except right L4 pedicle screw, which was found to be loose. Pre templated trajectory was used and guided using the Solutionreach robotic navigation system for left L1, L2, L3, L4, L5 pedicle screws and right L1, L2, L3, L4 L5 pedicle screws placement. This was done by using the robotic arm to guide the high-speed bur to make a cortical entry point. Next a drill was placed also using the robotic arm and guided using the navigation system drilling partially through bilateral L1, L2, L3, L4, L5 pedicles. Next L1, L2, L3, L4, L5 pedicle screws it was pre templated and measured was placed onto the power regional dedicated truck driver and inserted into the pedicles bilaterally. After all 8 screws were placed C-arm imaging was taken of both AP and lateral to confirm the placement. Excellent placement of the screws were confirmed and a matched precisely with the pre planned screw placement using the navigation system. MARs retractor was inserted using DropMatlauri guidence. Globus MARS retractors was placed inside the incision and docked onto the L2 and L3 lamina. Using microsurgical technique and operating microscope, a L2, L3 laminectomy and L2-3, L3-4 facetectomy was performed using a Kerrison rongeur. Patient was found have severe lateral recess and neural foramen stenosis which was fully decompressed after the laminectomy facetectomy. More than 75% of the facets were removed during the process of decompression rendering L2-3, L3-4 level grossly unstable and required a fusion procedure at the same time. The disc space at L2-3, L3-4 was identified, and a total diskectomy was performed at L2-3, L3-4 level. The endplates were decorticated using a rasp and shaver. The total diskectomy and decortication was performed at L2-3, L3-4 level in order to to accomplish a L2-3, L3-4 fusion. The local bone from the laminectomy and facetectomy was saved for local bone grafting. After the total diskectomy and decortication was completed, Trifecta bone graft material was combined with local bone that was harvested earlier. MARs retractor was retargeted over L1 lamina. A right sided L1 hemilaminectomy was performed. Appropriate decompression was accomplished without destabilizing the L1-2 segement. At this time, a separate skin is incision was made over the iliac crest. A Jamshidi needle was inserted into the iliac crest through a separate skin incision. 5 cc of bone marrow aspiration was obtained through the separate skin incision using a Jamshidi needle from the iliac crest. The bone marrow aspiration was combined with local bone and the Trifecta bone grafting material. The bone grafting material was placed into the L2-3, L3-4 interbody space along with a expandable cage. The cage was expanded to its maximum height using the torque limiting screwdriver. The disc preparation as well as the cage insertion were also performed under navigation guidance. After the cage was placed, AP and lateral C-arm imaging was taken to confirm placement of the cage and excellent position was confirmed. The fusion mass on the right side of L4-5 was exposed by performing a right-sided hemilaminectomy at L4-5 level. The hemilaminectomy was performed using the Kerrison rongeur to undercut the lamina as well removing additional epidural scar tissue for purpose of decompressing the epidural space. The fusion mass was explored and was found have visible motion indicating pseudoarthrosis. Cytoxus MARS retractor was inserted and docked onto the L1-2, L2-3, L3-4, L4-5 posterolateral gutter. Using the power drill, posterior-lateral decortication was performed at L1-2, L2-3, L3-4, L4-5 level until bleeding cortical bone was identified. The remaining bone grafting material was placed into the L1-2, L2-3, L3-4, L4-5 posterior lateral gutter in order to accomplish posterolateral fusion at the L1-2, L2-3, L3-4, L4-5 level. At this time the tulips were attached to the L1, L2, L3, L4-L5 pedicle screw shanks. This was done in L1, L2, L3, L4-L5 pedicles bilaterally. After measuring the length of the rods, they were inserted into the tulips of the pedicle screws and locked in place using locking caps and torque limiting screwdriver bilaterally. Total 10 caps and 2 titanium rods was used in order to complete the posterior instrumentation construct. After all the hardware was placed, and confirmed with AP and lateral C-arm imaging, the wound was then irrigated with sterile normal saline and packed with Ray-Reshma gauze for 3 min to accomplish hemostasis. After the gauze was removed the deep fascia was closed with #1 Vicryl suture. The subcutaneous layer was closed with 2-0 Vicryl. The skin was closed with skin rafaela. Patient tolerated the procedure well. There were no complications. Neuro monitoring system was used to monitor patient's neurologic status throughout entire procedure. There was no disturbance of the neural monitoring signals throughout the case. Complications: none Post-operative Condition: stable Disposition: PACU Plan for aftercare: Admit to inpatient hospital
[2022-02-25] MEDS: HYDROMORPHONE 2 MG INJ IV ×4 (14:27→14:53)
[2022-02-25] MEDS: hydrOXYzine pamoate 25 MG CAPSULE PO (14:40)
[2022-02-25] MEDS: SODIUM CHLORIDE 0.9% 1,000 ML 100 ML IV (16:03)
[2022-02-25] MEDS: OXYCODONE IR 5 MG TABLET 10 MG PO ×3 (16:03→22:11)
[2022-02-25] MEDS: HYDROMORPHONE 0.5 MG INJ IV ×3 (17:15→23:14)
[2022-02-25] MEDS: ZIPRASIDONE HCL 40 MG 40 EACH PO (18:03)
[2022-02-25] MEDS: SENNOSIDES 8.6 MG TABLET 17.2 MG PO (20:38)
[2022-02-25] MEDS: MELATONIN 3 MG TABLET 18 MG PO (20:38)
[2022-02-25] MEDS: ATORVASTATIN 20 MG TABLET PO (20:38)
[2022-02-25] MEDS: PRAZOSIN HCL 5 MG CAPSULE 10 MG PO (20:42)
[2022-02-25] MEDS: DOCUSATE 100 MG CAPSULE PO (20:47)
[2022-02-25] MEDS: lamoTRIgine 100 MG TABLET 300 MG PO (20:47)
[2022-02-26 00:58] VITALS: BP 109/71; PULSE 91; RESP 16; TEMP 37.3; O2SAT 95
[2022-02-26] MEDS: OXYCODONE IR 5 MG TABLET 10 MG PO ×4 (01:04→10:26)
[2022-02-26] MEDS: HYDROMORPHONE 0.5 MG INJ IV ×2 (01:05→03:55)
[2022-02-26] MEDS: SODIUM CHLORIDE 0.9% 1,000 ML 100 ML IV (02:12)
[2022-02-26] MEDS: CEFAZOLIN 2 GM/20 ML SYRINGE IV (03:55)
[2022-02-26 05:54] VITALS: BP 98/64; PULSE 93; RESP 16; TEMP 36.4; O2SAT 97
[2022-02-26 06:10] VITALS: BP 102/57; PULSE 97; RESP 16; O2SAT 97
[2022-02-26] MEDS: PANTOPRAZOLE DR 20 MG TABLET PO (06:14)
[2022-02-26 06:20] VITALS: TEMP 37.3
[2022-02-26] MEDS: ACETAMINOPHEN 325 MG TABLET 650 MG PO (06:20)
[2022-02-26 06:40] LABS: Hematocrit 33.4 % (36-46); Hemoglobin 11.1 g/dL (12.0-16.0)
--- NOTE | 2022-02-26 07:22 | P.PN_ITS ---
Subjective Subjective Date Patient Seen: 02/26/22 Time Patient Seen: 07:22 Interval history: Patient's pain has been moderate to severe. Currently her pain is 9 / 10. Denies fever or chills. No nausea or vomiting. Patient does have assistance at home when she is discharged. Exam Vital Signs (past 8 hours): - 02/26/22 00:58 02/26/22 05:54 02/26/22 06:10 Temperature 99.2 F 97.6 F Pulse Rate 91 H 93 H 97 H Respiratory Rate 16 16 16 Blood Pressure 109/71 98/64 102/57 L Pulse Oximetry 95 97 97 Oxygen Flow Rate 2 2 2 02/26/22 06:20 Temperature 99.2 F Pulse Rate Respiratory Rate Blood Pressure Pulse Oximetry Oxygen Flow Rate Oxygen Delivery Method Nasal Cannula Oxygen Flow Rate 2 Narrative Exam Narrative: 66-year-old female resting comfortably in bed in no apparent distress. Thacker is in place. Motor function is intact bilateral lower extremities. Sensation grossly intact to light touch bilateral lower extremities. Objective Labs Result Diagrams: 02/26/22 05:54 Labs: Laboratory Results - last 24 hr 02/26/22 05:54 Hgb 11.1 L Hct 33.4 L PFSH Medical History Adrenal adenoma Anxiety Bipolar 2 disorder COPD (chronic obstructive pulmonary disease) Depression Diverticulitis Fibromyalgia GERD (gastroesophageal reflux disease) Headache, migraine Hepatitis C HTN (hypertension) Hyperlipidemia Kidney stones Lupus Pneumonia Raynauds disease Surgical History H/O: hysterectomy History of esophagogastroduodenoscopy (EGD) (05/09/21) History of fusion of lumbar spine (07/09/21) History of left knee replacement History of right hip replacement History of right knee joint replacement Hx of tonsillectomy Social History household members: spouse Smoking Status: Current every day smoker alcohol intake: current Assessment & Plan Post-op Postoperative Procedures: Procedures Operation Date: 02/25/22 07:45 Actual Procedure Side Surgeon p L2-3, L3-4 TLIF, L1-5 PSF w. posterior instrumentation-Robot Not Applicable Tyree Baptiste MD Postoperative day: 1 Postoperative status: doing well and marginal pain control Postoperative status narrative: Patient progressing as expected status post lumbar fusion Postoperative plan narrative: Mobilize with physical therapy Multimodal pain management Discontinue Thacker today Disposition: May be able to discharge home today after physical therapy if sta ble for home environment. Quality VTE Deep Vein Thrombosis/Pulmonary Embolism Present on Admission: No
[2022-02-26 07:40] VITALS: BP 101/65; PULSE 90; RESP 16; TEMP 36.3; O2SAT 97
[2022-02-26] MEDS: DOCUSATE 100 MG CAPSULE PO (08:16)
[2022-02-26] MEDS: MELOXICAM 7.5 MG TABLET 15 MG PO (08:16)
--- NOTE | 2022-02-26 09:15 | CM.DANOTE ---
DCP: Case received, EMR reviewed and met with patient. Introduced self and role. Was able to obtain information regarding patient's baseline activity status prior to her surgery.. DCP assessment completed with information currently available. Patient is a 66 year old female who admitted yesterday morning to the care of the orthopedist team. PCP: Dr. Lofton. Payer: confirmed: Dr. Lofton. Patient came to the hospital via private vehicle for a surgical procedure. Patient had L4-5 TLIF. She has history of spinal stenosis. Met with patient in her room. She is alert and oriented. She was sitting up in bed having breakfast. Confirmed that patient resides in [place] with her spouse, Kapil. She drives at her baseline. Confirmed with patient that spouse will be able to assist her when she goes home. She also indicated that they have no steps in the home. P: Patient has discharge orders pending working with Rupa. Sylvie Edge RN/Cnc Mechanic Discharge Planning/Care Management CM Discharge Assessment Start: 02/26/22 09:13 Freq: Status: Active Protocol: Document 02/26/22 09:14 (Rec: 02/26/22 09:15 [id number]) Discharge Planning Assessment Assigned [employer] Lieutenant Sylvie Edge RN/Cnc Mechanic Advance Directives? No History Provided By Patient,Medical Record Prior Living Arrangements House Household Members spouse Type of transporation used prior to Drives own vehicle admit Independent with ADL's Yes Is patient alert and oriented? Yes Caregiver for Another No DME Already Rented / Owned Cane Barriers to Discharge No Comment Patient indicated, she has supportive at home who should be able to assist her . Discharge Plan Home Transportation Arrangement Family Referrals Initiated None needed Whiteboard Updated in Patient Room with Yes name and ext. # of Patrol Police Lieutenant Review Status In Process Next Review Type Continued Stay Review Pre-Anesthesia Assessment Start: 02/21/22 10:45 Freq: Status: Active Protocol: Document 02/21/22 10:45 CAB (Rec: 02/21/22 11:23 CAB [id number]) Pre-Anesthesia Assessment Preferred Name Cynthia Patient Information Reviewed Via Phone Assessment Assessment Completed With Patient Diagnostic Results BMP/CMP,CBC,EKG Comment Labs/ECG @ [facility] 02/15/22, COVID screen 02/22/22 Primary Care Provider Nir Lofton Seen Specialist in Last 12 Months Yes Specialist Seen Orthopedist Primary Language Ukrainian Preferred Language Ukrainian Publication Distributor Required No Height 5 ft 3 in Weight 160 lb Body Mass Index (BMI) 28.3 Hearing Ability Normal Visual Assist Glasses Dentition Type Full- Upper & Lower Barriers to Learning None Hx Anesthesia Reactions No Hx Family Anesthesia Reaction No Hx Malignant Hyperthermia No Hx Blood Transfusions No Hx Blood Transfusion Reaction No Anesthesia Review Requested No Insurance Claims Supervisor No alcohol intake current alcohol intake frequency holidays/special occasions only Smoking Status Current every day smoker Tobacco type cigarettes Smoking packs per day 1 Substance Use Type marijuana Comment Pt advised not to smoke marijuana 24 hours prior to surgery Pain Present Pain Reported Musculoskeletal Symptoms Abnormal Gait,Back Pain, Difficulty Walking,Muscle Spasms,Muscle Weakness, Numbness,Radiating Pain into Limb History of Falling (Recent or History of Yes ) Patient is completely paralyzed or No completely immobile Mental Status Oriented to own ability Is patient on oxygen? No Does patient have VELASCO/SOB Yes: r/t COPD Hx Sleep Apnea No CPAP/BIPAP use not prescribed Currently Taking a Beta Claudine No Can You Climb a Flight of Stairs Without No SOB Hx Chest Pain No Hx SOB Yes: r/t COPD Hx Syncope or Dizziness No Anti-Coagulant Therapy No Has a Radiology Director No Cardiac Testing No Hx Pacemaker/ICD No Pacemaker Rep Required? No Cardiac Clearance Received Not Applicable Diet Type At Home Regular dysphagia No Gastrointestinal Symptoms Constipation,Reflux Bladder Pattern Frequency,Urgency Urinary Catheter Present No Hx Urinary Self Catheterization No Diabetes No HgbA1C 5.2 Date 02/15/22 Patient No Lactating No Hx Drug Resistant Organism No Presence of External or Internal Medical Yes: Bilat knees, right hip, Devices lumbar Have you had any close contact with No someone diagnosed with COVID-19? Received a COVID vaccine? Yes: Needs 2nd booster Received all doses? No Marital Status Lives With spouse Prior Living Arrangements House Number of Floors (Floors) One Floor Support System Spouse Does the Patient Have Assistance After Yes Surgery Patient Discharge Plan Description Return Home Comment Pt not advised on length of stay per surgeon Feels Safe in Current Environment Yes Been Physically Hurt or Threatened By a No Person in Current Environment Do you have thoughts of harming yourself None or others? Are you currently considering suicide? No Do you have a plan to hurt yourself or No Plan others? Do You Have Any Spiritual Beliefs That No May Affect Your HC Choices? Do You Have Any Cultural Practices That No May Affect Your HC Choices? Who Can We Speak to About Patient's Care Family, friends Identifying Code for Release of Patient Declines to issue Information Health Care Proxy/Next of Kin Kapil () Health Care Proxy Emergency Contact Name Kapil () Emergency Contact Advance Directives? No Power of Supervisor Graphite No PAC Instructions Durable medical equipment, Medications to take/avoid, Nasal antibiotic,No ETOH/ petroleum product on skin DOS, NPO,Post-op transportation,Pre -surgical wash,Sturdy shoes/ comfortable clothes,Do not bring valuables and remove jewelry
--- NOTE | 2022-02-26 09:16 | PT.IIE ---
Current Diagnoses Other secondary scoliosis, lumbar region (02/25/22) Spinal stenosis, lumbar region with neurogenic claudication (02/25/22) Arthrodesis status (02/25/22) Surgery Performed Operation Date: 02/25/22 07:45 Actual Procedures p L2-3, L3-4 TLIF, L1-5 PSF w. posterior instrumentation-Robot(Not Applicable) - Tyree Baptiste MD Surgical History (Last Reviewed 02/26/22 @ 07:24 by Kishor Mathur PA-C) H/O: hysterectomy History of esophagogastroduodenoscopy (EGD) (05/09/21) History of fusion of lumbar spine (07/09/21) History of left knee replacement History of right hip replacement History of right knee joint replacement Hx of tonsillectomy Medical History (Last Reviewed 02/26/22 @ 07:24 by Kishor Mathur PA-C) Adrenal adenoma Anxiety Bipolar 2 disorder COPD (chronic obstructive pulmonary disease) Depression Diverticulitis Fibromyalgia GERD (gastroesophageal reflux disease) Headache, migraine Hepatitis C HTN (hypertension) Hyperlipidemia Kidney stones Lupus Pneumonia Raynauds disease Physical Therapy Inpatient Evaluation/Re-Eval M1 PT/OT-IP Prior Functional Status Start: 02/26/22 09:29 Freq: NEEDED Status: Active Protocol: Document 02/26/22 09:16 DLM (Rec: 02/26/22 09:44 DLM [id number]) Medical Review Prior Functional Status Medical History Reviewed Yes Diet/Fluid Consistency Regular Communication WNL Mobility and Gait Independent without device, mostly stays home Activities of Daily Living and IADL's Independent Social History Household Members spouse Living Arrangements House Number of Floors (Floors) One Floor Number of Stairs To Enter/Railing? ramp Home Environment Standard Height Toilet,Tub/ Shower Home Equipment Front Wheel Walker,Raised Toilet Seat w/Armrests,Shower Seat without Backrest Additional Social History Comment Her Spouse assisted her after her Jul 2021 back surgery without difficulty per pt M2 PT-IP Current Condition Start: 02/26/22 09:29 Freq: NEEDED Status: Active Protocol: Document 02/26/22 09:16 DLM (Rec: 02/26/22 09:44 DLM [id number]) Physical Therapy Current Condition Current Condition Evaluation Date 02/26/22 Treatment Diagnosis L1-L5 TLIF, impaired mobility Onset Date 02/25/22 M3 PT-IP Subjective Start: 02/26/22 09:29 Freq: NEEDED Status: Active Protocol: Document 02/26/22 09:16 DL (Rec: 02/26/22 09:44 [facility] [id number]) Subjective Physical Therapy Visit Type Type Initial Evaluation Visit Start Time 08:45 Visit Stop Time 09:16 Total Visit Minutes 31 Number of TAPE TRANSFERRER Visits 0 Physical Therapy Visit Comments Patient Comments She is doing better than she expected, she feels the pain medication is helping manage her pain. She has no concerns about discharging home Patient Goals She wants to discharge home with Spouse to assist her Therapy Pain Assessment Pain When Pain Assessed During Mobility Pain Present Pain Present Pain Reported Location Back Intensity 8 Scale Used Numeric (0 - 10) Description Aching,With Movement Pain Behaviors Guarding,Wincing Pain Management Techniques Re-positioning,Timing of Activity with Medications M4 PT-IP Mobility and Gait Start: 02/26/22 09:29 Freq: NEEDED Status: Active Protocol: Document 02/26/22 09:16 [facility] (Rec: 02/26/22 09:44 [facility] [id number]) PT-Bed Mobility Assessment Rolling Level of Assist Standby Assistance Supine to Sit Supine to Sit Standby Assistance Sit to Supine Sit to Supine Standby Assistance Scooting Scooting to Edge of Bed Independent PT-Transfer Assessment Sit to and From Stand Sit to and from Stand Standby Assistance,Use of Upper Extremities Equipment Transfer Assistive Device Bed Rail,Front Wheeled Walker Transfers Transfer Destination Bed,Chair Transfer Technique Stand Step Pivot Transfer Ability Level of Assist Standby Assistance,Use of Upper Extremities Gait Assessment Gait Gait Assistance Required: Standby Assistance Distance (Feet) 80 Assistive Devices Assistive Device Gait Belt,Front Wheeled Walker Gait Deviations General Gait Pattern Flexed Trunk Factors Limiting Gait Function Factors Limiting Gait Function Decreased Activity Tolerance, Pain Comments Gait Comments mild flexed posture over FWW for pain management, she demonstrates safe use of FWW Stair Climbing Assessment Comments Stair Climbing Comments she has no stairs at home, has ramp PT-Balance Assessment Sitting Balance and Reactions Static Sitting Balance Ability Normal Dynamic Sitting Balance Ability Normal Standing Balance and Reactions Static Standing Balance Ability Good Dynamic Standing Balance Ability Good Device Used FWW M5 PT-IP Objective Assessments Start: 02/26/22 09:29 Freq: NEEDED Status: Active Protocol: Document 02/26/22 09:16 DLM (Rec: 02/26/22 09:44 [facility] [id number]) Orientation Orientation/Cognition Level of Alertness Alert Orientation Name,Age,Birthday,Month,Date, Year,Day of Week,Place, Situation Language Function Ability No Deficits Noted Safety Awareness Understands Safety Issues Memory Description No Deficits Noted Gross Range of Motion Upper Extremity ROM Assessment Within Functional Limits Lower Extremity ROM Assessment Within Functional Limits Impairments trunk limited post-op due to precautions and pain Strength Upper Extremity Strength Assessment Within Functional Limits Lower Extremity Strength Assessment Within Functional Limits Comments Strength Comments Back pain limits functional strength Coordination Assessment Gross Coordination Gross Coordination WNL Sensation Assessment Sensation Gross Sensation WNL Comments Sensation Comments no numbness nor pain in LE's during gait/standing Muscle Tone Muscle Tone WNL Yes M6 PT-IP Treatment Start: 02/26/22 09:29 Freq: NEEDED Status: Active Protocol: Document 02/26/22 09:16 DL (Rec: 02/26/22 09:44 [facility] [id number]) Physical Therapy Treatment Education Education Provided Post-Op Packet,Safety M7 PT-IP Assessment and Plan Start: 02/26/22 09:29 Freq: NEEDED Status: Active Protocol: Document 02/26/22 09:16 DLM (Rec: 02/26/22 09:44 [facility] [id number]) PT Summary Assessment and Plan Potential Rehabilitation Potential Good Status of Condition at Evaluation Evolving Summary Impairments Pain,ROM,Strength,Balance,Bed Mobility,Transfers,Gait, Activity Tolerance Progress Towards Goals Safe For Discharge Assessment Summary Cynthia is alert and resting in bed. She recalls her spine precautions from her back surgery in Nov. She needs intermittent verbal cues for hand placement during mobility to manage her spine precautions. She tolerated mobility and gait well with FWW. She was able to manage her pain for functional mobility. On room air her O2 sats are 92-95%. Pt declined to stay up in the recliner at the end of this visit and preferred to return to bed to rest. She reports having a supportive Spouse who can assist her at home. She appears safe to discharge today if medically cleared. Goals Other Goals all training completed this visit Frequency of Treatment Frequency Of Treatment Discharge Treatment Plan Other Recommendations and Next Treatment mobility/gait/post op training Focus completed this visit Precautions Lumbar Precautions Log Roll,No Twisting,Limit Bending,Lifting Restriction of 10 lbs,Gait Belt above Incisional Area Recommendations To Nursing Amount of Assist Needed Standby Assistance Discharge Recommendations PT Discharge Recommendations Home with Assistance Transportation Needs at Discharge Private Vehicle
--- NOTE | 2022-02-26 09:42 | OT.IP.EVAL ---
Current Diagnoses Other secondary scoliosis, lumbar region (02/25/22) Spinal stenosis, lumbar region with neurogenic claudication (02/25/22) Arthrodesis status (02/25/22) Surgery Performed Operation Date: 02/25/22 07:45 Actual Procedures p L2-3, L3-4 TLIF, L1-5 PSF w. posterior instrumentation-Robot(Not Applicable) - Tyree Baptiste MD Past Medical History (Last Reviewed 02/26/22 @ 10:57 by Kishor Mathur PA-C) Adrenal adenoma Anxiety Bipolar 2 disorder COPD (chronic obstructive pulmonary disease) Depression Diverticulitis Fibromyalgia GERD (gastroesophageal reflux disease) Headache, migraine Hepatitis C HTN (hypertension) Hyperlipidemia Kidney stones Lupus Pneumonia Raynauds disease Surgical History (Last Reviewed 02/26/22 @ 10:57 by Kishor Mathur PA-C) H/O: hysterectomy History of esophagogastroduodenoscopy (EGD) (05/09/21) History of fusion of lumbar spine (07/09/21) History of left knee replacement History of right hip replacement History of right knee joint replacement Hx of tonsillectomy Occupational Therapy Inpatient Evaluation/Re-Eval M1 PT/OT-IP Prior Functional Status Start: 02/26/22 09:29 Freq: NEEDED Status: Discharge Protocol: Document 02/26/22 09:16 DLM (Rec: 02/26/22 09:44 DLM [id number]) Medical Review Prior Functional Status Medical History Reviewed Yes Diet/Fluid Consistency Regular Communication WNL Mobility and Gait Independent without device, mostly stays home Activities of Daily Living and IADL's Independent Social History Household Members spouse Living Arrangements House Number of Floors (Floors) One Floor Number of Stairs To Enter/Railing? ramp Home Environment Standard Height Toilet,Tub/ Shower Home Equipment Front Wheel Walker,Raised Toilet Seat w/Armrests,Shower Seat without Backrest Additional Social History Comment Her Spouse assisted her after her Jul 2021 back surgery without difficulty per pt M1 PT/OT-IP Prior Functional Status Start: 02/26/22 12:00 Freq: NEEDED Status: Active Protocol: Document 02/26/22 09:42 [facility] (Rec: 02/26/22 12:15 [facility] [id number]) Medical Review Prior Functional Status Medical History Reviewed Yes Diet/Fluid Consistency Regular Communication WNL Mobility and Gait Independent without device, mostly stays home Activities of Daily Living and IADL's Independent Social History Household Members spouse Living Arrangements House Number of Floors (Floors) One Floor Number of Stairs To Enter/Railing? ramp Home Environment Standard Height Toilet,Tub/ Shower Home Equipment Front Wheel Walker,Raised Toilet Seat w/Armrests,Shower Seat without Backrest Additional Social History Comment Her Spouse assisted her after her Jul 2021 back surgery without difficulty per pt M2 OT-IP Current Condition Start: 02/26/22 12:00 Freq: Status: Active Protocol: Document 02/26/22 09:42 [facility] (Rec: 02/26/22 12:15 [facility] [id number]) Occupational Therapy Current Condition Current Condition Evaluation Date 02/26/22 Treatment Diagnosis s/p L2-3, L3-4 TLIF, L1-S1 PSF with posterior inst Diagnosis Onset Date 02/25/22 Post Operative Precautions Lumbar Precautions Log Roll,No Twisting,Limit Bending,Lifting Restriction of 10 lbs,Gait Belt above Incisional Area M3 OT- IP Subjective and Pain Start: 02/26/22 12:00 Freq: Status: Active Protocol: Document 02/26/22 09:42 [facility] (Rec: 02/26/22 12:15 [facility] [id number]) OT- Subjective Occupational Therapy Visit Type Type Initial Evaluation Visit Start Time 09:42 Visit Stop Time 09:57 Total Visit Minutes 15 Occupational Therapy Visit Comments Patient Comments Pt wanting to get up to use the bathroom. Pt's present in the room for caregiver training. Patient/Caregiver Goals TO go home. OT Pain Assessment Pain When Pain Assessed At Rest Pain Present Pain Present Denied Pain M4 OT- IP ADL's Start: 02/26/22 12:00 Freq: Status: Active Protocol: Document 02/26/22 09:42 [facility] (Rec: 02/26/22 12:15 [facility] [id number]) OT ADL-Grooming General Evaluation Grooming Ability Standby Assistance Areas Needing Assistance Retrieving/Set-up of Grooming Items Comments OT Grooming Comments Able to stand at the sink with FWW fro grooming needs. OT ADL-Oral Care General Eval Oral Care Ability Standby Assistance Comments Oral Care Comments Cues to spit into a cup or hinge at her hips to best follow her back precautions. OT ADL-Dressing Comments OT Dressing Comments NO performed, pt's in the room and able to assist the pt. OT ADL-Toileting Comments OT Toileting Comments Educated best to wipe from the back while standing and use of wipes to best follow her back precautions. OT ADL-Bathing Comments OT Bathing Comments NOt performed. M5 OT- IP IADL's Start: 02/26/22 12:00 Freq: Status: Active Protocol: Document 02/26/22 09:42 [facility] (Rec: 02/26/22 12:15 [facility] [id number]) OT-Instrumental Activities of Daily Living Home Safety Awareness Awareness of Need for Assistance at Home Good Awareness Home Safety Comments Pt has a supportive to be able to assist with her needs. M6 OT- IP Functional Cognition Start: 02/26/22 12:00 Freq: Status: Active Protocol: Document 02/26/22 09:42 [facility] (Rec: 02/26/22 12:15 [facility] [id number]) Cognitive Factors Limiting Selfcare Function Cognitive Ability Level of Alertness Alert Patient Orientation Name,Place,Situation Attention Span Ability Capable of Focused Attention, Capable of Sustained Attention Ability to Follow Commands Able to Follow One Step Commands with Increased Time, Able to Follow One Step Commands with Repetition Safety Awareness Decreased Ability to Apply Precautions,Underestimates Need for Assistance Cognitive Comments Cognitive Assessment Comments Pt needing reminders to incorporated her back precautions during mobility and ADl needs. Pt tends to want to twist. OT- Vision and Hearing OT- Hearing Assessment OT- Hearing Assessment WFL M7 OT- IP Mobility and Balance Start: 02/26/22 12:00 Freq: Status: Active Protocol: Document 02/26/22 09:42 [facility] (Rec: 02/26/22 12:15 [facility] [id number]) OT- Bed Mobility Assessment Rolling Level of Assistance Minimal Assistance Supine to Sit Supine to Sit Assist Minimal Assistance Sit to Supine Sit to Supine Assist Minimal Assistance OT-Transfer Assessment Sit to and From Stand Sit to and from Stand Contact Guard Assistance Transfers Transfer Ability Standby Assistance,Contact Guard Assistance Technique Transfer Destination Bed Devices Transfer Assistive Devices Gait Belt,Front Wheeled Walker Comments Mobility Comments ROLA to help with her trunk and legs by her . Pt's able to safely assist pt for gait belt management, bed mobility and transfer needs. OT- Balance Assessment Sitting Balance and Reactions Static Sitting Balance Ability Good Dynamic Sitting Balance Ability Good Standing Balance and Reactions Static Standing Balance Ability Fair M8 OT- IP Objective Assessments Start: 02/26/22 12:00 Freq: Status: Active Protocol: Document 02/26/22 09:42 [facility] (Rec: 02/26/22 12:15 [facility] [id number]) OT-Muscle Tone Assessment Muscle Tone WNL Yes M9 OT- IP Assessment and Plan Start: 02/26/22 12:00 Freq: Status: Active Protocol: Document 02/26/22 09:42 [facility] (Rec: 02/26/22 12:15 [facility] [id number]) OT Summary Assessment and Plan Potential Rehabilitation Potential Good Analytic Complexity at Evaluation Low Summary OT Impairments Strength,Balance,Functional Mobility,Grooming,Dressing, Toileting,Bathing,Toilet Transfers,Shower Transfers Progress Towards Goals Progressing Toward Goals Assessment Summary Pt low complexity and has a supportive to assist pt for all needs after her back sx. Pt still needing reminders for safety of FWW use, and to incorporate her back precautions for ADl and mobility needs. Pt's in on OT eval able to safely assist pt for bed mobility , transfers, and ADl needs. Pt to go home when medically stable. Goals Grooming Goal Independent Dressing Goal Independent Toileting Goal Independent Bathing Goal Standby Assistance Toilet Transfer Goal Independent Shower Transfer Goal Independent Days to Meet Goals 5 Frequency of Treatment Frequency Of Treatment Once a Day Treatment Plan OT Treatment Plan ADL Training,Functional Mobility,Patient/Family Education,Discharge Planning Discharge Recommendations OT Discharge Recommendations Home with 31/03 Assist Available Transportation Needs at Discharge Private Vehicle
--- NOTE | 2022-02-26 10:54 | PM.DS.1 ---
History of Present Illness History of Present Illness Date Patient Seen: 02/26/22 Time Patient Seen: 10:55 Chief complaint: Back pain Narrative: See progress note Discharge Providers Provider Discharge Date: 02/26/22 Primary care physician: Nir Lofton MD Consults: 02/25/22 06:56 Consult to Respiratory Therapy Evaluate & Treat Comment: Physician Instructions: Evaluate and treat 02/25/22 07:11 Consult to Respiratory Therapy Evaluate & Treat Comment: Physician Instructions: Evaluate and treat 02/25/22 15:30 Consult to Occupational Therapy Evaluate & Treat Comment: Physician Instructions: Evaluate and treat Consult to Physical Therapy Evaluate & Treat Comment: Physician Instructions: Evaluate and Treat Discharge provider: Kishor Mathur PA-C Summary Hospital Course Discharge Diagnosis: 1. L1-2, L2-3, L3-4 spinal stenosis with neurogenic claudication 2. Lumbar scoliosis 3. Hx of L4-5 TLIF with hardware Hospital Course: Procedure: 1. L1-2, L2-3, L3-4 Postero-lateral and posterior interbody fusion 2. L2-3, L3-4 interbody cage placement. 3. L1-2, L2-3, L3-4 decompressive laminectomy with bilateral facetecomies 4. L4-5 hemilaminectomy and exploration of fusion 5. L1-2, L2-3, L3-4, L4-5 Posterior segmental instrumentation 6. L1-2, L4-5 posterolateral fusion 7. [place] of bone marrow from iliac crest 8. Utilization of microsurgical technique and operating microscope 9. Utilization of robotic assistic fusion Same procedure as scheduled: Yes Indications: Patient has been having chronic back pain and worsening lumbar radiculopathy. Patient failed multiple conservative management with worsening pain weakness and numbness in her lower extremity.? Patient has been having difficulty performing activity of daily living.? After discussing risks benefits of treatment options, patient elected proceed with surgery. Surgeon: Tyree Baptiste Automatic Cigar Wrapper Tender: Eve Crowell Click Yes if Unassisted: No Anesthesia Type: General Operative Notes Closure Type: primary Specimen(s): none sent Prosthetic devices, grafts, tissues, transplants, or devices: Globus CREO MIS screws, Rise cages Applied: catheter Estimated Blood Loss (mL): 350 Blood products transfused: none Patient admitted to the hospital for the above-mentioned procedure. Patient consented to the same. Patient taken to the operating room on February 25, 2022 underwent lumbar fusion. Patient back in her room recovering well and is in stable condition. Patient mobilize with physical therapy. Able to urinate on her own. She will be discharged home today. Exam Vital Signs (past 8 hours): - 02/26/22 05:54 02/26/22 06:10 02/26/22 06:20 Temperature 97.6 F 99.2 F Pulse Rate 93 H 97 H Respiratory Rate 16 16 Blood Pressure 98/64 102/57 L Pulse Oximetry 97 97 Oxygen Flow Rate 2 2 02/26/22 07:40 Temperature 97.4 F L Pulse Rate 90 Respiratory Rate 16 Blood Pressure 101/65 Pulse Oximetry 97 Oxygen Flow Rate 2 Oxygen Delivery Method Nasal Cannula Oxygen Flow Rate 2 Narrative Exam Narrative: See progress note Objective Labs Result Diagrams: 02/26/22 05:54 Labs: Laboratory Results - last 24 hr 02/26/22 05:54 Hgb 11.1 L Hct 33.4 L PFSH Medical History Adrenal adenoma Anxiety Bipolar 2 disorder COPD (chronic obstructive pulmonary disease) Depression Diverticulitis Fibromyalgia GERD (gastroesophageal reflux disease) Headache, migraine Hepatitis C HTN (hypertension) Hyperlipidemia Kidney stones Lupus Pneumonia Raynauds disease Surgical History H/O: hysterectomy History of esophagogastroduodenoscopy (EGD) (05/09/21) History of fusion of lumbar spine (07/09/21) History of left knee replacement History of right hip replacement History of right knee joint replacement Hx of tonsillectomy Social History household members: spouse Smoking Status: Current every day smoker alcohol intake: current Discharge Assessment & Plan Assessment and Plan Assessment: Patient progressing as expected status post lumbar fusion Plan of Treatment: Limit bending, twisting, lifting Multimodal pain management Keep dressing clean and dry Discharge home today in stable condition. Discharge Plan Discharge Plan Patient Disposition: Home Provider Discharge Comment: Discharge home today after physical therapy if safe for home environment Discharge orders & Medications Discharge Orders: Discharge (Order); Ordered 02/26/22 Ordered By: Kishor Mathur Prescriptions: New acetaminophen 325 mg Tablet 650 mg PO Q6HR PRN (Reason: Pain, Mild (1-3)) Qty: 60 0RF docusate sodium 100 mg Capsule 100 mg PO BID Qty: 20 0RF oxycodone 5 mg Tablet 10 mg PO Q3HR PRN (Reason: Pain, Severe (7-10)) Qty: 60 0RF Continued simvastatin 40 mg Tablet 40 mg PO DAILY Qty: 0 prazosin 5 mg capsule 10 mg PO BEDTIME methocarbamol 750 mg tablet 750 mg PO DAILY PRN (Reason: Muscle Spasm) hydrochlorothiazide 25 mg tablet 25 mg PO DAILY ziprasidone HCl 40 mg capsule 40 mg PO QPM omeprazole magnesium [Prilosec OTC] 20 mg Tablet,Delayed Release (Dr/Ec) 20 mg PO DAILY lamotrigine 100 mg Tablet 300 mg PO BEDTIME melatonin 10 mg Capsule 20 mg PO BEDTIME Discontinued meloxicam 15 mg Tablet 15 mg PO DAILY diphenhydramine-acetaminophen [Tylenol PM Extra Strength] 25-500 mg Tablet 2 tab PO BEDTIME Follow up/Referrals: Nir Lofton MD [Primary Care Provider] - Tyree Baptiste MD [Physician] - (Two weeks) Diet/Activity/Treatments Diet: Diet as Tolerated Activity: Limit bending, twisting, lifting Skin/Wound/Dressing Care Report to your healthcare provider any signs of infection, such as:: chills, fever, increased pain, unusual drainage and unusual redness Dressing: Keep dressing clean and dry Visit Report/Discharge Packet Instructions: DI for Transforaminal Lumbar Interbody Fusion Stand Alone Forms: Surgery Discharge Discharge Data Primary Care Provider: Nir Lofton Attending Provider: Tyree Baptiste Quality VTE Deep Vein Thrombosis/Pulmonary Embolism Present on Admission: No
== END 2022-02-26 11:32 | disposition home or self-care (01) | DRG 454 ==
LOC: OR 05:56 → AC 02-26 08:06
PROVIDERS: Admitting Provider Orthopaedic Surgery Orthopaedic Surgery of the Spine; PCP Family Medicine; Referring Provider Orthopaedic Surgery Orthopaedic Surgery of the Spine; Visit Provider Orthopaedic Surgery Orthopaedic Surgery of the Spine
PROC: 0SG10AJ Fusion of 2 or more Lumbar Vertebral Joints with Interbody Fusion Device, Posterior Approach, Anterior Column, Open Approach (ICD-10-PCS; principal; 2022-02-25 07:45)
DX: M48.062 Spinal stenosis, lumbar region with neurogenic claudication (principal); T84.038A Mechanical loosening of other internal prosthetic joint, initial encounter; M96.0 Pseudarthrosis after fusion or arthrodesis; M41.86 Other forms of scoliosis, lumbar region; M96.1 Postlaminectomy syndrome, not elsewhere classified; E78.5 Hyperlipidemia, unspecified; I10 Essential (primary) hypertension; F31.9 Bipolar disorder, unspecified; K21.9 Gastro-esophageal reflux disease without esophagitis; F17.200 Nicotine dependence, unspecified, uncomplicated; Z98.1 Arthrodesis status; Z20.822 Contact with and (suspected) exposure to COVID-19
CPT/HCPCS: 36415; 72100; 76000; 82962; 85014; 85018; 87635; 97162; 97165; C1776; C9803; C9290; J0330; J0690; J1100; J1170; J2250; J2405; J2704; J3010

== ENCOUNTER 2022-08-26 08:50 | Emergency (ER) | payer MEDICARE, BC, SELFPAY ==
[2022-02-25 15:47] VITALS: BMI 28.3
[2022-08-26] VITALS (12 sets, daily range): BP systolic 127–147; BP diastolic 76–86; PULSE 85–98; RESP 18–22; TEMP 36.6; O2SAT 95–98; BMI 28.3
--- NOTE | 2022-08-26 12:34 | DI.CT.S_ITS ---
PROCEDURE: CT THORACIC SPINE WO CON INDICATIONS: Neck pain TECHNIQUE: Noncontrast 3 mm thick sections acquired through the region of interest in the thoracic spine. Sagittal and coronal reformats were then constructed. For radiation dose reduction, the following was used: automated exposure control. COMPARISON: No pertinent prior study. FINDINGS: Age indeterminate vertebral body height loss at T5 with no definite associated fracture plane identified. Remaining vertebral body heights maintained. Moderate thoracolumbar levoscoliosis with moderate to severely exaggerated lower thoracic and thoracolumbar kyphosis similar to the previous exam. The visualized portions of the ribs appear grossly intact, evaluation limited by motion artifact. Thoracolumbar fixation hardware partially visualized. Prevertebral and paraspinous soft tissues are normal. IMPRESSION: Age-indeterminate T5 vertebral body height loss without definite underlying fracture. Correlate for point tenderness. Dictated by: Timothy Villafuerte M.D. on 08/26/2022 at 13:21 Approved by: Timothy Villafuerte M.D. on 08/26/2022 at 13:25
--- NOTE | 2022-08-26 12:34 | DI.CT.S_ITS ---
PROCEDURE: CT CERVICAL SPINE WO CON INDICATIONS: Neck pain TECHNIQUE: Noncontrast 3 mm thick sections acquired from the skull base to the T4 level. Sagittal and coronal reformats were then constructed. For radiation dose reduction, the following was used: automated exposure control, adjustment of mA and/or kV according to patient size. COMPARISON: None. FINDINGS: Likely degenerative anterolisthesis of C4 on C5 measuring 1 millimeter and C5 on C6 measuring 2 millimeters. Otherwise normal alignment. Vertebral body heights maintained. There is no fracture identified. Intervertebral disc spaces are congruent. Facet joints are congruent with no abnormal asymmetric widening. Moderate degenerative changes of the facets from C2-C3 through C6-C7. No suspicious lytic or blastic osseous lesion. No acute finding in the partially visualized lung apices. IMPRESSION: No CT evidence of acute traumatic cervical spine injury. Dictated by: Timothy Villafuerte M.D. on 08/26/2022 at 13:12 Approved by: Timothy Villafuerte M.D. on 08/26/2022 at 13:21
[2022-08-26] MEDS: CYCLOBENZAPRINE 10 MG TABLET PO (12:52)
[2022-08-26] MEDS: OXYCODONE/ACETAMINOPHEN 5/325 TABLET 1 TAB PO (12:53)
[2022-08-26] MEDS: LIDOCAINE PATCH 1 EACH ADH..PATCH TOP (12:53)
--- NOTE | 2022-08-26 13:51 | ED_ITS ---
HPI - Extremity Problem <Graeme Gonzalez PA-C - Last Filed: 08/26/22 14:13> General Chief complaint: Extremity Problem,Nontraumatic Stated complaint: pain and numbess in right arm/hand Time Seen by Provider: 08/26/22 12:07 Source: patient Mode of arrival: Ambulatory History of Present Illness HPI Narrative: 66-year-old female with past medical history fusion of lumbar spine presents to the ED with 4 days of right-sided neck pain. Patient states that her pain started spontaneously, denies trauma. Patient states that she has had a history of lumbar fusion where they did a L1-L5 fusion. Patient has a ortho appointment on 24 of September. Patient states that her neck pain is right-sided, radiates down her right arm up to about her elbow. Patient denies weakness, tingling. Patient endorses some intermittent numbness in the right hand. Patient endorses strength and sensation, endorses full range of motion. Patient denies fever, chills, chest pain, shortness of breath, lightheadedness, dizziness, syncope. Related Data Home Medications Medication Instructions Recorded Confirmed simvastatin 40 mg tablet 40 mg PO DAILY ##0 09/18/10 02/25/22 hydrochlorothiazide 25 mg tablet 25 mg PO DAILY 05/09/21 02/25/22 methocarbamol 750 mg tablet 750 mg PO DAILY PRN Muscle Spasm 05/09/21 02/25/22 omeprazole magnesium 20 mg 20 mg PO DAILY 05/09/21 02/25/22 tablet,delayed release (Prilosec OTC) prazosin 5 mg capsule 10 mg PO BEDTIME 05/09/21 02/25/22 ziprasidone HCl 40 mg capsule 40 mg PO QPM Bipolar 05/09/21 02/25/22 lamotrigine 100 mg tablet 300 mg PO BEDTIME 07/02/21 02/25/22 melatonin 10 mg capsule 20 mg PO BEDTIME 07/02/21 02/25/22 Previous Rx's Medication Instructions Recorded acetaminophen 325 mg tablet 650 mg PO Q6HR PRN Pain, Mild 02/26/22 (1-3) #60 tabs docusate sodium 100 mg capsule 100 mg PO BID #20 caps 02/26/22 oxycodone 5 mg tablet 10 mg PO Q3HR PRN Pain, Severe 02/26/22 (7-10) #60 tabs oxycodone 5 mg tablet 5 mg PO Q4H PRN pain (scale score 03/01/22 4-6) #60 tabs cyclobenzaprine 10 mg tablet 10 mg PO TID PRN muscle spasm 3 08/26/22 days #10 tabs oxycodone-acetaminophen 5 mg-325 1 tab PO Q8H PRN pain 3 days #10 08/26/22 mg tablet (Percocet) tabs Allergies Allergy/AdvReac Type Severity Reaction Status Date / Time No Known Drug Allergies Allergy Verified 02/25/22 06:48 Review of Systems <Graeme Gonzalez PA-C - Last Filed: 08/26/22 14:13> Review of Systems ROS Unobtainable: All systems reviewed & are unremarkable except as noted in HPI and below Constitutional Constitutional: Denies chills, Denies fatigue, Denies fever(s), Denies frequent falls, Denies lethargy and Denies weakness Eyes Eyes: Denies change in vision, Denies eye discharge, Denies irritation and Denies loss of vision ENT Ears, Nose, Mouth, and Throat: Denies change in voice, Denies dizziness, Reports neck pain, Denies sore throat and Denies throat swelling Cardiovascular Cardiovascular: Denies chest pain, Denies irregular heart rhythm, Denies lightheadedness, Denies palpitations, Denies dyspnea, Denies dyspnea on exertion and Denies orthopnea Respiratory Respiratory: Denies cough, Denies dyspnea, Denies dyspnea on exertion and Denies wheezing Gastrointestinal Gastrointestinal: Denies abdominal pain, Denies change in bowel habits, Denies diarrhea, Denies nausea and Denies vomiting Genitourinary Genitourinary: Denies hematuria, Denies flank pain, Denies urinary incontinence and Denies urinary urgency Musculoskeletal Musculoskeletal: Denies back pain, Denies muscle weakness, Reports neck pain, Denies numbness, Reports radiating pain into limb and Denies tingling Integumentary/Breasts Skin/Breast: Denies pruritus, Denies erythema, Denies rash and Denies wounds Neurologic Neurologic: Denies behavioral changes, Denies confusion, Denies dizziness, Denies frequent falls, Denies loss of vision, Denies numbness, Denies tingling and Denies weakness Psychiatric Psychiatric: Denies anxiety, Denies behavioral changes, Denies confusion, Denies depression, Denies homicidal ideation and Denies suicidal ideation Endocrine Endocrine: Denies fatigue, Denies flushing and Denies palpitations Hematologic/Lymphatic Hematologic/Lymphatic: Denies easy bruising Allergic/Immunologic Allergic/Immunologic: Denies urticaria, Denies throat swelling and Denies wheezing Patient History <Graeme Gonzalez PA-C - Last Filed: 08/26/22 14:13> Medical History Adrenal adenoma Anxiety Bipolar 2 disorder COPD (chronic obstructive pulmonary disease) Depression Diverticulitis Fibromyalgia GERD (gastroesophageal reflux disease) Headache, migraine Hepatitis C HTN (hypertension) Hyperlipidemia Kidney stones Lupus Pneumonia Raynauds disease Surgical History H/O: hysterectomy History of esophagogastroduodenoscopy (EGD) (05/09/21) History of fusion of lumbar spine (07/09/21) History of left knee replacement History of right hip replacement History of right knee joint replacement Hx of tonsillectomy Social History household members: spouse Smoking Status: Current every day smoker alcohol intake: current Smoking Status: Current every day smoker alcohol intake frequency: holidays/special occasions only Substance Use Type: marijuana Exam <Graeme Gonzalez PA-C - Last Filed: 08/26/22 14:13> Narrative Exam Narrative: Const General:?cooperative, healthy appearing and comfortable [facility] Head:?normal to inspection Ears:?hearing grossly normal bilaterally Nose:?external nose normal Face and sinus:?normal facial exam and sinuses nontender Mouth:?oral mucosae normal Throat:?posterior oropharynx normal Eyes General:?appearance normal, both eyes and all related structures Neck Neck:?normal visual inspection and no lymphadenopathy noted Resp Effort & Inspection:?normal respiratory effort Auscultation:?clear to auscultation bilaterally Cardio Rate:?regular rate Rhythm:?regular rhythm Musculoskeletal Midline tenderness to palpation in the lower cervical, upper thoracic regions. Paraspinal tenderness to palpation in the same areas. Full range of motion of right arm. Strength and sensation is intact. Patient is neurovascularly intact. Neuro General:?patient alert, patient awake and patient oriented x3 Initial Vital Signs Initial Vital Signs: Vital Signs Pulse Rate 89 08/26/22 08:54 Respiratory Rate 18 08/26/22 08:54 Blood Pressure 127/81 08/26/22 08:54 Pulse Oximetry 97 08/26/22 08:54 Oxygen Delivery Method 08/26/22 08:54 <Latha Nixon DO - Last Filed: 08/27/22 09:00> Initial Vital Signs Initial Vital Signs: Vital Signs Pulse Rate 89 08/26/22 08:54 Respiratory Rate 18 08/26/22 08:54 Blood Pressure 127/81 08/26/22 08:54 Pulse Oximetry 97 08/26/22 08:54 Oxygen Delivery Method 08/26/22 08:54 Course <Graeme Gonzalez PA-C - Last Filed: 08/26/22 14:13> Orders Ordered: Discontinued Medications Cyclobenzaprine HCl (Cyclobenzaprine 10 Mg Tablet) 10 mg PO NOW ONE Stop: 08/26/22 12:36 Last Admin: 08/26/22 12:52 Dose: 10 mg Documented By: YADEN Lidocaine (Lidocaine Patch 1 Each Adh..Patch) 1 each TOP NOW ONE Stop: 08/26/22 12:39 Last Admin: 08/26/22 12:53 Dose: 1 each Documented By: AYDEN Oxycodone/Acetaminophen (Oxycodone/Acetaminophen 5/325 Tablet) 1 tab PO NOW ONE Stop: 08/26/22 12:36 Last Admin: 08/26/22 12:53 Dose: 1 tab Documented By: AYDEN Vital Signs Vital signs: Vital Signs - 8 hr 08/26/22 08:54 08/26/22 08:59 08/26/22 10:16 Temperature 97.8 F Pulse Rate 89 Respiratory Rate 18 22 Blood Pressure 127/81 132/76 Pulse Oximetry 97 Oxygen Delivery Method Room Air 08/26/22 10:16 08/26/22 10:30 08/26/22 11:00 Temperature Pulse Rate 90 90 87 Respiratory Rate Blood Pressure Pulse Oximetry 95 95 96 Oxygen Delivery Method 08/26/22 11:30 08/26/22 11:57 08/26/22 11:57 Temperature Pulse Rate 90 98 H Respiratory Rate Blood Pressure 147/84 H Pulse Oximetry 96 95 Oxygen Delivery Method Room Air Room Air 08/26/22 12:00 08/26/22 12:00 08/26/22 12:30 Temperature Pulse Rate 96 H Respiratory Rate Blood Pressure 140/83 136/84 Pulse Oximetry 95 Oxygen Delivery Method Room Air 08/26/22 12:30 08/26/22 12:47 08/26/22 12:47 Temperature Pulse Rate 85 94 H Respiratory Rate Blood Pressure 128/80 Pulse Oximetry 95 97 Oxygen Delivery Method Room Air Room Air 08/26/22 13:00 08/26/22 13:00 08/26/22 13:30 Temperature Pulse Rate 88 Respiratory Rate Blood Pressure 134/86 132/85 Pulse Oximetry 98 Oxygen Delivery Method Room Air 08/26/22 13:30 Temperature Pulse Rate 92 H Respiratory Rate Blood Pressure Pulse Oximetry 98 Oxygen Delivery Method Room Air <Latha Nixon, - Last Filed: 08/27/22 09:00> Orders Ordered: Discontinued Medications Cyclobenzaprine HCl (Cyclobenzaprine 10 Mg Tablet) 10 mg PO NOW ONE Stop: 08/26/22 12:36 Last Admin: 08/26/22 12:52 Dose: 10 mg Documented By: AYDEN Lidocaine (Lidocaine Patch 1 Each Adh..Patch) 1 each TOP NOW ONE Stop: 08/26/22 12:39 Last Admin: 08/26/22 12:53 Dose: 1 each Documented By: AYDEN Oxycodone/Acetaminophen (Oxycodone/Acetaminophen 5/325 Tablet) 1 tab PO NOW ONE Stop: 08/26/22 12:36 Last Admin: 08/26/22 12:53 Dose: 1 tab Documented By: AYDEN Vital Signs Vital signs: Vital Signs - 8 hr 08/26/22 08:54 08/26/22 08:59 08/26/22 10:16 Temperature 97.8 F Pulse Rate 89 Respiratory Rate 18 22 Blood Pressure 127/81 132/76 Pulse Oximetry 97 Oxygen Delivery Method Room Air 08/26/22 10:16 08/26/22 10:30 08/26/22 11:00 Temperature Pulse Rate 90 90 87 Respiratory Rate Blood Pressure Pulse Oximetry 95 95 96 Oxygen Delivery Method 08/26/22 11:30 08/26/22 11:57 08/26/22 11:57 Temperature Pulse Rate 90 98 H Respiratory Rate Blood Pressure 147/84 H Pulse Oximetry 96 95 Oxygen Delivery Method Room Air Room Air 08/26/22 12:00 08/26/22 12:00 08/26/22 12:30 Temperature Pulse Rate 96 H Respiratory Rate Blood Pressure 140/83 136/84 Pulse Oximetry 95 Oxygen Delivery Method Room Air 08/26/22 12:30 08/26/22 12:47 08/26/22 12:47 Temperature Pulse Rate 85 94 H Respiratory Rate Blood Pressure 128/80 Pulse Oximetry 95 97 Oxygen Delivery Method Room Air Room Air 08/26/22 13:00 08/26/22 13:00 08/26/22 13:30 Temperature Pulse Rate 88 Respiratory Rate Blood Pressure 134/86 132/85 Pulse Oximetry 98 Oxygen Delivery Method Room Air 08/26/22 13:30 Temperature Pulse Rate 92 H Respiratory Rate Blood Pressure Pulse Oximetry 98 Oxygen Delivery Method Room Air MDM - Extremity (Nontraumatic) <Graeme Gonzalez PA-C - Last Filed: 08/26/22 14:13> Imaging Data CT thoracic spine: Radiologist's Impression: PROCEDURE:? CT THORACIC SPINE WO CON ? INDICATIONS:? Neck pain ? TECHNIQUE:? Noncontrast 3 mm thick sections acquired through the region of interest in the thoracic spine.? Sagittal and coronal reformats were then constructed.? For radiation dose reduction, the following was used:? automated exposure control.? ? COMPARISON:? No pertinent prior study. ? FINDINGS:? Age indeterminate vertebral body height loss at T5 with no definite associated fracture plane identified.? Remaining vertebral body heights maintained.? Moderate thoracolumbar levoscoliosis with moderate to severely exaggerated lower thoracic and thoracolumbar kyphosis similar to the previous exam.? The visualized portions of the ribs appear grossly intact, evaluation limited by motion artifact.? Thoracolumbar fixation hardware partially visualized.? Prevertebral and paraspinous soft tissues are normal. ? IMPRESSION:? Age-indeterminate T5 vertebral body height loss without definite underlying fracture.? Correlate for point tenderness.? ? ? Dictated by: Timothy Villafuerte M.D. on 08/26/2022 at 13:21 ? ? Approved by: Timothy Villafuerte M.D. on 08/26/2022 at 13:25 ? CT - cervical spine: Radiologist's Impression: PROCEDURE:? CT CERVICAL SPINE WO CON ? INDICATIONS:? Neck pain ? TECHNIQUE:? Noncontrast 3 mm thick sections acquired from the skull base to the T4 level.? Sagittal and coronal reformats were then constructed.? For radiation dose reduction, the following was used:? automated exposure control, adjustment of mA and/or kV according to patient size.? ? COMPARISON:? None. ? FINDINGS:? Likely degenerative anterolisthesis of C4 on C5 measuring 1 millimeter and C5 on C6 measuring 2 millimeters.? Otherwise normal alignment.? Vertebral body heights maintained. ?There is no fracture identified.? Intervertebral disc spaces are congruent.? Facet joints are congruent with no abnormal asymmetric widening.? Moderate d egenerative changes of the facets from C2-C3 through C6-C7.? No suspicious lytic or blastic osseous lesion.? No acute finding in the partially visualized lung apices. ? ? IMPRESSION:? No CT evidence of acute traumatic cervical spine injury. ? Dictated by: Timothy Villafuerte M.D. on 08/26/2022 at 13:12 ? ? Approved by: Timothy Villafuerte M.D. on 08/26/2022 at 13:21 ? MDM Narrative Medical decision making narrative: 66-year-old female with past medical history fusion of lumbar spine presents to the ED with 4 days of right-sided neck pain. Concern for fracture/dislocation versus cervical radiculopathy. Obtained CT cervical and thoracic spine without acute findings. Patient's symptoms likely consistent with cervical radiculopat hy. Patient's pain responded well to Percocet, Flexeril. Patient has a ortho appointment when September 24 for follow-up. Discharge patient home with prescription for Percocet, Flexeril. ED return precautions were discussed with patient. Patient verbalized understanding. Discharge Plan Departure Patient Disposition: Home Clinical Impression: Neck pain Instructions: DI for Neck Pain Activity Restrictions/Additional Instructions: You were evaluated in the ED today for neck pain. Your cervical and thoracic CT scans, numbness. did not show evidence of fracture/dislocation. Your symptoms are likely due to cervical radiculopathy, which could be caused by nerves being impinged on by discs. You have a appointment with your computer support specialist on the 24 of September, please follow-up with him regarding this problem. You may take Percocet, Flexeril for your symptoms. You may also take ibuprofen, Tylenol. You may use Salonpas patch. Return to the ED if your symptoms worsen, you experience weakness, numbness, tingling. Prescriptions: New oxycodone-acetaminophen [Percocet] 5-325 mg tablet 1 tab PO Q8H PRN (Reason: pain) 3 Days Qty: 10 0RF cyclobenzaprine 10 mg tablet 10 mg PO TID PRN (Reason: muscle spasm) 3 Days Qty: 10 0RF No Action simvastatin 40 mg Tablet 40 mg PO DAILY Qty: 0 prazosin 5 mg capsule 10 mg PO BEDTIME methocarbamol 750 mg tablet 750 mg PO DAILY PRN (Reason: Muscle Spasm) hydrochlorothiazide 25 mg tablet 25 mg PO DAILY ziprasidone HCl 40 mg capsule 40 mg PO QPM omeprazole magnesium [Prilosec OTC] 20 mg Tablet,Delayed Release (Dr/Ec) 20 mg PO DAILY lamotrigine 100 mg Tablet 300 mg PO BEDTIME melatonin 10 mg Capsule 20 mg PO BEDTIME acetaminophen 325 mg Tablet 650 mg PO Q6HR PRN (Reason: Pain, Mild (1-3)) Qty: 60 0RF docusate sodium 100 mg Capsule 100 mg PO BID Qty: 20 0RF oxycodone 5 mg Tablet 10 mg PO Q3HR PRN (Reason: Pain, Severe (7-10)) Qty: 60 0RF oxycodone 5 mg tablet 5 mg PO Q4H PRN (Reason: pain (scale score 4-6)) Qty: 60 0RF Referrals: Nir Lofton MD [Primary Care Provider] - Visit Report Forms: Patient Portal/API <Latha Nixon DO - Last Filed: 08/27/22 09:00> Cosign ED Attending Jose Alberto Attestation: I was immediately available in the department for consultation. Documentation has been reviewed. I agree with assessment and plan.
== END 2022-08-26 14:01 | disposition home or self-care (01) ==
PROVIDERS: Emergency Provider Student in an Organized Health Care Education/Training Program; PCP Family Medicine
DX: M54.2 Cervicalgia (principal); R20.0 Anesthesia of skin
CPT/HCPCS: 72125; 72128; 99283; 99284

== ENCOUNTER → 2022-09-24 15:31 | Outpatient (CLI) | payer MEDICARE, BC, SELFPAY ==
[2022-02-25 15:47] VITALS: BMI 28.3
--- NOTE | 2022-09-24 15:33 | DI.MRI.S_ITS ---
PROCEDURE: MR CERVICAL SPINE WO CON INDICATIONS: Other spondylosis with radiculopathy, cervical TECHNIQUE: Noncontrast sagittal T1 spin echo and T2 fast spin echo, sagittal STIR, foraminal oblique sagittal T2 fast spin echo, and axial gradient echo or T2 fast spin echo through the cervical spine. COMPARISON: None. FINDINGS: Normal cervical spine vertebral body height and alignment. No suspicious focal marrow signal abnormality or bone marrow edema. Normal morphology and signal intensity of the cervical cord. No syrinx. Prevertebral and paraspinous soft tissues normal. C2-C3: No spinal canal stenosis. Moderate left and mild right neural foraminal narrowing due to facet and uncovertebral hypertrophy. C3-C4: Severe left and moderate right neural foraminal narrowing due to facet and uncovertebral hypertrophy. No spinal canal stenosis. C4-C5: Posterior disc osteophyte complex slightly flattens the ventral cord. Facet and uncovertebral hypertrophy combine to produce moderate bilateral neural foraminal narrowing. C5-C6: Mild bilateral neural foraminal narrowing due to facet and uncovertebral hypertrophy. Mild spinal canal stenosis and flattening of the ventral cord due to posterior disc osteophyte complex. C6-C7: Posterior disc osteophyte complex flattens the ventral thecal sac without mass effect upon the cord. Mild bilateral neural foraminal narrowing. C7-T1: No spinal canal or neural foraminal stenosis. IMPRESSION: Multilevel multifactorial degenerative changes as detailed above, most pronounced at C3-C4 and C4-C5. Dictated by: Timothy Villafuerte M.D. on 09/25/2022 at 8:57 Approved by: Timothy Villafuerte M.D. on 09/25/2022 at 8:59
== END ==
PROVIDERS: PCP Family Medicine; Referring Provider Physician Assistant; Visit Provider Physician Assistant
DX: M47.22 Other spondylosis with radiculopathy, cervical region (principal)
CPT/HCPCS: 72141

== ENCOUNTER → 2023-01-24 11:11 | Outpatient (CLI) | payer MEDICARE, BC, SELFPAY ==
[2022-02-25 15:47] VITALS: BMI 28.3
--- NOTE | 2023-01-24 | DI.MG.S_ITS ---
BILATERAL DIGITAL SCREENING MAMMOGRAM 3D/2D WITH CAD: 01/24/2023 CLINICAL: Routine screening. Family history of breast cancer. Comparison is made to exams dated: 01/12/2016 mammogram and 11/10/2013 mammogram - [facility]. Both breasts are almost entirely fatty (category a/<25% glandular tissue). Current study was also evaluated with a Computer Aided Detection (CAD) system. No significant masses, calcifications, or other findings are seen in either breast. There has been no significant interval change. IMPRESSION: NEGATIVE There is no mammographic evidence of malignancy. A 1 year screening mammogram is recommended. Based on the Tyrer Cuzick model (a risk assessment model) the patient's lifetime risk is 2.4% and her 10 year risk is 1.3%. According to the ACR, ACS, and NCCN guidelines, an annual breast MRI exam along with mammogram is recommended if the patient's lifetime risk is 20% or greater. This exam was interpreted at Station ID: [id number]. NOTE: For mammograms, a report in lay terms will be sent to the patient. Approximately 15% of breast malignancies will not be visualized mammographically. In the management of a palpable breast mass, a negative mammogram must not discourage biopsy of a clinically suspicious lesion. Electronically Signed By: Andriy hahn/regine:01/24/2023 13:56:40 copy to: Amber Kearney letter sent: Normal Exam ACR BI-RADS Category 1: Negative [id number]
--- NOTE | 2023-01-24 11:23 | DI.DEXA.S_ITS ---
Bone Density Report Name: BETH GUTIERREZ Age: 67 Sex: Female Ethnicity: White Date of : 1955 Indication: postmenopausal; screening for osteoporosis; Referring Provider: THAD FLORES Study: Bone densitometry was performed. Exam Date: January 24, 2023 Accession number: [id number] Bone Density: Region BMD T-score Z-score Classification Femoral Neck (Left) 0.647 -1.8 -0.1 Osteopenia Total Hip (Left) 0.833 -0.9 0.5 Normal Total Forearm (Left) 0.565 -0.3 1.6 Normal 1/3 Forearm (Left) 0.673 -0.3 1.6 Normal UD Forearm (Left) 0.471 0.5 1.9 Normal World Health Organization criteria for BMD impression classify patients as: Normal (T-score at or above -1.0), Osteopenia (T-score between -1.0 and -2.5), or Osteoporosis (T-score at or below -2.5). 10-year Fracture Risk(1): Major Osteoporotic Fracture 11% Hip Fracture 1.6% Reported Risk Factors: [place] (), Neck BMD=0.647, BMI=28.3 (1) FRAX(R) Version 3.08. Fracture probability calculated for an untreated patient. Fracture probability may be lower if the patient has received treatment. Previous Exams: -- Region Exam Age BMD T-score BMD Change BMD Change Date g/cm2 vs Baseline vs Previous -- Total Hip(Left) 01/24/2023 67 0.833 -0.9 -0.051 (-5.8%)# -0.051 (-5.8%)# 01/12/2016 60 0.884 -0.5 -- *Denotes significance at 95% confidence level, LSC for Total Hip = 0.027 g/cm2 # Denotes dissimilar scan types or analysis methods Impression: The patient has low bone mass, based on the Left Femoral Neck T-score. The patient has an estimated ten-year risk of hip fracture of 1.6% and an estimated ten-year risk of major fracture of 11%, based on the WHO FRAX algorithm. No significant bone loss was observed. Discussion: BONE DENSITY IS LOW AT ONE OR MORE SKELETAL SITES. This patient's lowest T-score is low at one or more skeletal sites. It meets the World Health Organization's (WHO) criteria for ?low bone mass? (T-score between -1.0 and -2.5). The patient's 10-year risk of fracture as calculated by FRAX is less than the threshold where pharmacological therapy is recommended by the National Osteoporosis Foundation (NOF). However, all treatment decisions require clinical judgment and consideration of individual patient factors, including patient preferences, comorbidities, previous drug use, risk factors not captured in the FRAX model (e.g., frailty, falls, vitamin D deficiency, increased bone turnover, interval significant decline in bone density) and possible under or overestimation of fracture risk by FRAX. The patient should follow a healthful lifestyle (good nutrition with adequate calcium and vitamin D, and appropriate weight-bearing exercise). Follow-Up: Consider repeating this study in 2 to 3 years to reassess this patient's status, or sooner if there is some new clinical indication. Reported by: ЕКАТЕРИНА ISBELL M.D. on 01/24/2023 11:30:00 AM.
== END ==
PROVIDERS: PCP Family Medicine; Referring Provider Student in an Organized Health Care Education/Training Program; Visit Provider Student in an Organized Health Care Education/Training Program
DX: Z80.3 Family history of malignant neoplasm of breast (principal); Z12.31 Encounter for screening mammogram for malignant neoplasm of breast; Z13.820 Encounter for screening for osteoporosis; M85.88 Other specified disorders of bone density and structure, other site; Z78.0 Asymptomatic menopausal state
CPT/HCPCS: 77063; 77067; 77080; 77081

== ENCOUNTER → 2023-06-27 08:58 | Outpatient (CLI) | payer MEDICARE, BC, SELFPAY ==
[2022-02-25 15:47] VITALS: BMI 28.3
--- NOTE | 2023-06-27 | DI.CT.S_ITS ---
PROCEDURE: CT HEAD/BRAIN WO CON INDICATIONS: Weakness TECHNIQUE: Noncontrast 4.5 mm thick angled axial sections acquired from the foramen magnum to the vertex, with coronal and sagittal reformats. For radiation dose reduction, the following was used: automated exposure control, adjustment of mA and/or kV according to patient size. COMPARISON: None. FINDINGS: Image quality: Excellent. CSF spaces: Basal cisterns are patent. No extra-axial fluid collections. The ventricles are symmetric in size and shape. Brain: No intracranial bleeds or masses. There is cerebral volume loss for age, with resultant ventricular and sulcal prominence. There are periventricular and deep white matter chronic small vessel ischemic changes. There is intracranial internal carotid artery atherosclerosis. Skull and face: Calvarium and visualized facial bones appear intact, without suspicious lesions. Sinuses: Visualized sinuses and mastoids are clear. IMPRESSION: CT head without acute intracranial abnormalities. Age related senescent changes and sequela of chronic small vessel ischemic disease. No evidence for mass or mass effect. If there is persistent or high clinical suspicion for acute cerebrovascular ischemia/stroke, more sensitive evaluation with brain MRI can be considered. Dictated by: Justice Velasquez M.D. on 06/27/2023 at 10:27 Approved by: Justice Velasquez M.D. on 06/27/2023 at 10:29
== END ==
LOC: CT 08:59
PROVIDERS: PCP Family Medicine; Referring Provider Student in an Organized Health Care Education/Training Program; Visit Provider Student in an Organized Health Care Education/Training Program
DX: R51.9 Headache, unspecified (principal); R53.1 Weakness; I65.29 Occlusion and stenosis of unspecified carotid artery
CPT/HCPCS: 70450

== ENCOUNTER → 2023-07-10 09:53 | Outpatient (CLI) | payer MEDICARE, BC, SELFPAY ==
[2022-02-25 15:47] VITALS: BMI 28.3
--- NOTE | 2023-07-10 | DI.CT.S_ITS ---
PROCEDURE: CT LUMBAR SPINE WO CON INDICATIONS: Spinal stenosis, lumbar region with neurogenic claudication TECHNIQUE: Noncontrast 3 mm thick sections acquired from the T12 level to the sacrum. Sagittal and coronal reformats were constructed. For radiation dose reduction, the following was used: automated exposure control. COMPARISON: [facility], CT, CT LUMBAR SPINE WO CON, 02/15/2022, 12:21. FINDINGS: Image quality: Excellent. Bones: There are 6 non rib-bearing elements. For the purposes of this study and for consistency to prior imaging the lowest well developed disc space is designated L5-S1. Levoscoliosis with a Quintana angle of 28?. Pedicular screw and eors fixation spanning from L2 through L5. Lucency surrounding the screws within the upper to most fixated levels designated L2 and L3 on this study is seen consistent with loosening. The remaining screws have no perihardware lucency. No hardware fracture. No acute vertebral body compression fractures. No suspicious lytic or blastic bony lesions. No pars defects. T12-L1: Disc space narrowing. Endplate degenerative changes and disc osteophytes. Facet arthropathy. Moderate bilateral foraminal stenosis. The central canal is patent. L1-L2: Disc space narrowing. Endplate degenerative changes and disc osteophytes. Severe bilateral foraminal stenosis. Intradiscal gas consistent with degenerative changes at this level. Severe bilateral foraminal stenosis. Mild central canal stenosis. L2-L3: Disc space narrowing. Endplate degenerative changes and disc osteophytes. Severe bilateral foraminal stenosis. Intradiscal gas consistent with degenerative changes at this level. Ligamentum flavum hypertrophy. The central canal is not well evaluated due to artifact but there appears to be at least moderate central canal stenosis. L3-L4: Status post discectomy and posterior fixation. The right foramen is patent. The left foramen has moderate stenosis. Moderate central canal stenosis. L4-L5: Status post discectomy and posterior fixation. The right foramen is patent. The left foramen has moderate stenosis. Mild to moderate central canal stenosis. L5-S1: No disc height loss. No significant disc bulge. No significant foraminal or central canal stenosis. Soft tissues: No retroperitoneal masses or hematomas. Low-density bilateral adenomas consistent with benign lipid rich adenomas, unchanged. Visualized aorta is normal in caliber. IMPRESSION: 1. Postoperative changes of posterior fixation from L1 through L5, revised compared to the prior CT which had only L4 and L5 fixation. There is lucency around the screws of the upper 2 fused levels designated L1 and L2 on this study. 2. Multilevel foraminal and central canal stenosis as detailed above. 3. Unchanged benign lipid rich adenomas. Dictated by: Mike Martínez M.D. on 07/10/2023 at 10:34 Approved by: Mike Martínez M.D. on 07/10/2023 at 11:44
== END ==
PROVIDERS: PCP Student in an Organized Health Care Education/Training Program; Referring Provider Orthopaedic Surgery Orthopaedic Surgery of the Spine; Visit Provider Orthopaedic Surgery Orthopaedic Surgery of the Spine
DX: M48.062 Spinal stenosis, lumbar region with neurogenic claudication (principal); Z98.1 Arthrodesis status
CPT/HCPCS: 72131

== ENCOUNTER → 2023-10-18 12:20 | Outpatient (CLI) | payer MEDICARE, BC, SELFPAY ==
[2022-02-25 15:47] VITALS: BMI 28.3
--- NOTE | 2023-10-18 12:21 | DI.MRI.S_ITS ---
PROCEDURE: MR LUMBAR SPINE WO CON INDICATIONS: Scoliosis, unspecified TECHNIQUE: Noncontrast sagittal T1 spin echo and T2 fast echo, sagittal STIR, and T2 fast spin echo through the lumbar spine. In cases with scoliosis, additional coronal T2 fast spin echo may be performed. COMPARISON: [facility], CR, XR LUMBAR SPINE 2 OR 3 VIEWS, 02/27/2023, 10:12. [facility], CT, CT LUMBAR SPINE WO CON, 07/10/2023, 10:01. [facility], MR, MR LUMBAR SPINE WO CON, 01/22/2022, 13:44. FINDINGS: Image quality: Excellent. Alignment and Curvature: There is background scoliosis. Trace retrolisthesis T12-L1, L1-2, L2-3. No significant change since the prior MRI. Bone Marrow: There is posterior fusion hardware and transpedicular screws bilaterally from L1 through L5 there are degenerative, mixed type 1 and two Modic changes at the endplates of T12-L1. Endplate irregularity and spurring is present at L1-2. No acute vertebral body fractures Spinal Cord: Conus medullaris terminates at the L1 level. Visualized cord demonstrates normal signal and size. Paraspinous Soft Tissues: Multiple bilateral renal cysts. No new paraspinal masses. T12-L1: Since the prior MRI, there has been development of a large broad-based disc protrusion along the right aspect of the disc from right central, through foraminal, and right lateral. There is posterior displacement of spinal cord and deformation of cord shape (series 8/image 6). New since the prior MRI. Mild to moderate right foraminal narrowing. L1-L2: Retrolisthesis, facet arthropathy, and small disc bulge in the right lateral recess region contribute to cause moderate right foraminal narrowing. Improved compared to the prior MRI. Left foraminal disc protrusion without significant foraminal narrowing. L2-L3: Facet arthropathy and scoliosis contribute to cause a moderate left foraminal narrowing, similar compared to the prior MRI. Right-sided disc protrusion has resolved. L3-L4: Left-sided facet arthropathy. Resolved central canal stenosis. L4-L5: Left-sided facet arthropathy. Left foraminal narrowing without significant change. L5-S1: Bilateral facet arthropathy. Small broad-based posterior disc bulge. IMPRESSION: New disc bulge at T12-L1 level posteriorly displacing and deforming central cord. Posterior fusion now extends from L1 through L5 and there has been interval improvement of disc disease at L1-2 and L2-3, and resolution of L3-4 central canal stenosis. Dictated by: China Reynoso M.D. on 10/20/2023 at 9:04 Approved by: China Reynoso M.D. on 10/20/2023 at 9:29
--- NOTE | 2023-10-18 12:21 | DI.MRI.S_ITS ---
PROCEDURE: MR THORACIC SPINE WO CON INDICATIONS: Scoliosis, unspecified TECHNIQUE: Noncontrast sagittal T1 spine echo and T2 fast spin echo, sagittal STIR, and T2 fast spin echo through the thoracic spine. COMPARISON: None. FINDINGS: Image quality: Excellent. Alignment and Curvature: Dextroscoliosis with the apex at the T9-10 level. There is no significant AP subluxation. Trace retrolisthesis T12 on L1. Bone Marrow: Normal marrow signal. Superior endplate scalloping deformity of T5 with mild anterior height loss. No marrow edema. No other suspicious bone lesions. Degenerative irregularity and endplate spurring at the T12-L1 level. Small T10 vertebral body hemangioma. Spinal Cord: Visualized spinal cord is normal in size and signal. Paraspinous Soft Tissues: Bilateral adrenal masses previously characterized as adrenal adenomas. Miscellaneous: At T7-8, there is mild right central and foraminal broad-based disc bulge and facet arthropathy causing moderately severe right neural foraminal narrowing. Similar findings on the right at the T8-9 level. Mild left-sided foraminal narrowing at T8-9. Mild broad-based diffuse posterior disc bulge at T9-10 and facet arthropathy, left worse than right causes mild to moderate left and mild right foraminal narrowing. IMPRESSION: Facet arthropathy, disc bulge, and scoliosis contribute to moderately severe right foraminal narrowing at T7-8 and moderate. Correlate with level of radiculopathy if present. Dictated by: China Reynoso M.D. on 10/20/2023 at 9:47 Approved by: China Reynoso M.D. on 10/20/2023 at 10:05
== END ==
LOC: MRI 12:20
PROVIDERS: PCP Student in an Organized Health Care Education/Training Program; Referring Provider Neurological Surgery; Visit Provider Neurological Surgery
DX: T84.318A Breakdown (mechanical) of other bone devices, implants and grafts, initial encounter (principal); M41.9 Scoliosis, unspecified; M51.35 Other intervertebral disc degeneration, thoracolumbar region; M51.34 Other intervertebral disc degeneration, thoracic region; M47.814 Spondylosis without myelopathy or radiculopathy, thoracic region; M48.04 Spinal stenosis, thoracic region; D35.02 Benign neoplasm of left adrenal gland; D35.01 Benign neoplasm of right adrenal gland
CPT/HCPCS: 72146; 72148

== ENCOUNTER → 2023-11-07 12:04 | Outpatient (CLI) | payer MEDICARE, BC, SELFPAY ==
[2022-02-25 15:47] VITALS: BMI 28.3
--- NOTE | 2023-11-07 12:06 | DI.CT.S_ITS ---
PROCEDURE: CT THORACIC SPINE WO CON INDICATIONS: Scoliosis TECHNIQUE: Noncontrast 3 mm thick sections acquired through the region of interest in the thoracic spine. Sagittal and coronal reformats were then constructed. For radiation dose reduction, the following was used: automated exposure control. COMPARISON: [facility], CT, CT THORACIC SPINE WO CON, 08/26/2022, 12:42. FINDINGS: Image quality: Excellent. Bones: There is dextroscoliosis with apex at T9-10. Trace retrolisthesis of T12 on L1. No acute vertebral body compression fractures. No suspicious sclerotic or lytic bony lesions. Central spinal canal is of normal overall caliber. Partially visualized upper lumbar fusion. Scattered areas of mild disc bulges most notable at T7-8, T8-9 and T9-10. No significant spinal stenosis. Moderate to severe foraminal narrowing is present at T7-8 and T8-9 on the right. Soft tissues: No paravertebral masses or hematomas. Visualized posteromedial lungs appear clear. IMPRESSION: Scoliotic curvature with stable interval exam as above. Dictated by: Nicolle Spann M.D. on 11/07/2023 at 16:30 Approved by: Nicolle Spann M.D. on 11/07/2023 at 16:34
--- NOTE | 2023-11-07 12:06 | DI.CT.S_ITS ---
PROCEDURE: CT LUMBAR SPINE WO CON INDICATIONS: Scoliosis TECHNIQUE: Noncontrast 3 mm thick sections acquired from the T12 level to the sacrum. Sagittal and coronal reformats were constructed. For radiation dose reduction, the following was used: automated exposure control. COMPARISON: [facility], CT, CT LUMBAR SPINE WO CON, 07/10/2023, 10:01. [facility], MR, MR LUMBAR SPINE WO CON, 10/18/2023, 12:34. FINDINGS: Image quality: Prominent artifact from fusion hardware is present, limiting areas of fine detail evaluation. Bones: There is leftward scoliotic curvature with apex at L1-2. Scoliosis measures approximately 30?. Posterior fusion is present from L1 through L5 with intervertebral spacers at L2-3, L3-4 and L4-5. There is lucency surrounding pedicular screws at L1-L2 bilaterally. The left pedicular screw at L1 traverses the soft tissue left lateral to the pedicle terminating in the vertebral body. Similar appearance is also identified at the left L2 and L3 pedicular screws. Multilevel disc bulges/protrusions at T12-L1, L1 L2 are present. No visualized spinal stenosis. Foraminal narrowing remains present at L1-2 and to a lesser degree L4-5. Soft tissues: No retroperitoneal masses or hematomas. Visualized aorta is normal in caliber. Prominent bilateral adrenal masses are present the largest on the right measuring 5.2 x 4.1 cm. They are unchanged most likely lipid rich adenomas. IMPRESSION: Scoliosis and postsurgical change as above. Findings are stable compared to prior MRI on 10/09/2023. Multilevel surgical screw lucency suggestive of loosening. Dictated by: Nicolle Spann M.D. on 11/07/2023 at 16:17 Approved by: Nicolle Spann M.D. on 11/07/2023 at 16:30
== END ==
PROVIDERS: PCP Student in an Organized Health Care Education/Training Program; Referring Provider Neurological Surgery; Visit Provider Neurological Surgery
DX: M41.9 Scoliosis, unspecified (principal); M51.25 Other intervertebral disc displacement, thoracolumbar region; M51.34 Other intervertebral disc degeneration, thoracic region; M51.36 Other intervertebral disc degeneration, lumbar region; M48.04 Spinal stenosis, thoracic region; Z98.1 Arthrodesis status
CPT/HCPCS: 72128; 72131

== ENCOUNTER 2023-11-25 11:27 | Emergency (ER) | payer MEDICARE, BC, SELFPAY ==
[2022-02-25 15:47] VITALS: BMI 28.3
[2023-11-25] VITALS (8 sets, daily range): BP systolic 96–143; BP diastolic 65–77; PULSE 85–91; RESP 18; TEMP 37.1; O2SAT 94–96; BMI 39.8
--- NOTE | 2023-11-25 11:53 | ED_ITS ---
HPI - General Adult General Chief complaint: Urogenital-Female Stated complaint: Fever,dark urine,spinal fusion 10 days ago Time Seen by Provider: 11/25/23 11:46 Source: patient, family (), EMS, RN notes reviewed and old records reviewed Mode of arrival: EMS Limitations: no limitations History of Present Illness HPI narrative: 68-year-old female with history of hypertension, dyslipidemia, chronic back pain, mood disorder with history of prior lumbar spinal fusion and recent thoracic through lumbar fusion on the 18 of November and discharged yesterday from he is [facility]. Dr. Butler is her spinal surgeon. Patient has had flank pain even before her surgery but has been increasing since discharge. She states she still has pain pain in the midline of her spine but that it has been slowly improving over time. Patient states pain does not really wrap around to the front. She denies any abdominal pain but does have some pressure suprapubically. She had a fever today at home, denies any vomiting but has been nauseated since her surgery. Denies any chest pain or shortness of breath. No cold cough or congestion. States she has not had a bowel movement since her surgery but is passing flatus regularly. States she also had urinary retention postsurgically did have a catheter placed was removed, had a straight cath and then ultimately had catheter replaced yesterday prior to discharge. They noted that her urine seems a little bit darker. She has not had any new pain, numbness or tingling or weakness down her legs since her surgery. She did have pain and paresthesias prior to the surgery that has not returned. She does not appreciate any saddle anesthesia. No known drug allergies does have allergy to bee stings. Primary care is Dr. Carrington. She has been taking Tylenol at home along with oxycodone 5 mg p.o. q.6 hours for pain management was taking 10 mg prior to discharge. She did restart her aspirin in the last day on recommendation from her surgeon. Related Data Home Medications Medication Instructions Recorded Confirmed simvastatin 40 mg tablet 40 mg PO DAILY ##0 09/18/10 02/25/22 hydrochlorothiazide 25 mg tablet 25 mg PO DAILY 05/09/21 02/25/22 methocarbamol 750 mg tablet 750 mg PO DAILY PRN Muscle Spasm 05/09/21 02/25/22 omeprazole magnesium 20 mg 20 mg PO DAILY 05/09/21 02/25/22 tablet,delayed release (Prilosec OTC) prazosin 5 mg capsule 10 mg PO BEDTIME 05/09/21 02/25/22 ziprasidone HCl 40 mg capsule 40 mg PO QPM Bipolar 05/09/21 02/25/22 lamotrigine 100 mg tablet 300 mg PO BEDTIME 07/02/21 02/25/22 melatonin 10 mg capsule 20 mg PO BEDTIME 07/02/21 02/25/22 Previous Rx's Medication Instructions Recorded acetaminophen 325 mg tablet 650 mg (2 x 325 mg) PO Q6HR PRN 02/26/22 Pain, Mild (1-3) #60 tabs docusate sodium 100 mg capsule 100 mg PO BID #20 caps 02/26/22 oxycodone 5 mg tablet 10 mg (2 x 5 mg) PO Q3HR PRN Pain, 02/26/22 Severe (7-10) #60 tabs oxycodone 5 mg tablet 5 mg PO Q4H PRN pain (scale score 03/01/22 4-6) #60 tabs ciprofloxacin HCl 500 mg tablet 500 mg PO Q12H 7 days #14 tabs 11/25/23 oxycodone 5 mg tablet 10 mg (2 x 5 mg) PO Q4H PRN pain 11/25/23 #20 tabs Allergies Allergy/AdvReac Type Severity Reaction Status Date / Time No Known Drug Allergies Allergy Verified 02/25/22 06:48 Review of Systems Review of Systems ROS Unobtainable: All systems reviewed & are unremarkable except as noted in HPI and below Patient History Medical History Fibromyalgia Headache, migraine Depression Anxiety Kidney stones Pneumonia Diverticulitis HTN (hypertension) Adrenal adenoma Hepatitis C Raynauds disease Lupus Hyperlipidemia Bipolar 2 disorder COPD (chronic obstructive pulmonary disease) GERD (gastroesophageal reflux disease) Surgical History History of fusion of lumbar spine (07/09/21) History of right hip replacement History of left knee replacement History of right knee joint replacement History of esophagogastroduodenoscopy (EGD) (05/09/21) H/O: hysterectomy Hx of tonsillectomy Social History household members: spouse Smoking Status: Current every day smoker alcohol intake: current Smoking Status: Current every day smoker alcohol intake frequency: holidays/special occasions only Substance Use Type: marijuana Exam Narrative Exam Narrative: GEN: well nourished, well appearing female, alert and oriented x 3, patient appears to be in moderate distress. HEENT: Atraumatic, pupils are equal round reactive to light, extraocular movements are intact, nares are clear, TMs are clear with no fluid, there is no conjunctival pallor. Throat is clear without any exudates, erythema, tonsillar enlargement or uvular deviation HEART: Regular rate and rhythm without murmur, clicks, rubs. 2+ pulses bilateral lower extremities. LUNGS:Lungs clear to auscultation, no wheezes, rales, crackles, chest moves symmetrically ABD:bowel sounds normal, soft, non-tender, no guarding, rebound, rigidity, no masses noted, no hepatosplenomegaly :No CVA tenderness, Thacker catheter in place which is full with yellow urine. BACK: Patient has what appears to be wound VAC in place although it is no longer attached. Surrounding areas clean dry and intact. It was not removed. Patient has decreased range of motion. Patient was not her brace this was removed for evaluation. Patient states she can bed and be seated without the brace but if she needs to walk she does have to put it back on. Patient's gait is [antalgic/normal]. Rectal exam is deferred. Muscle strength is 5/5 in lower extremities, DTRs are 2/4 and lower extremities. Dorsalis pedis and tibialis pulses are 2+ and lower extremities. Sensation is intact in the lower extremities. MSCL: Non-tender, no muscle atrophy, muscles strength 5/5 upper and lower extremities, full range of motion. NEURO:CN 2-12 intact, sensation normal Initial Vital Signs Initial Vital Signs: Vital Signs Pulse Rate 91 H 11/25/23 11:32 Pulse Oximetry 96 11/25/23 11:32 Course Orders Ordered: ED Orders 11/25/23 11:35 Urinalysis and Microscopic Stat 11/25/23 12:08 CT abdomen pelvis w con Stat 11/25/23 12:25 Blood Culture Stat Complete Blood Count AUTO DIFF Stat Comprehensive Metabolic Panel Stat Lactate (Lactic Acid) Stat Procalcitonin Stat Discontinued Medications Acetaminophen (Acetaminophen 325 Mg Tablet) 975 mg PO NOW ONE Stop: 11/25/23 11:49 Last Admin: 11/25/23 11:54 Dose: 975 mg Documented By: FADI Diphenhydramine HCl (Diphenhydramine 50 Mg/Ml Vial) 25 mg IV NOW ONE Stop: 11/25/23 14:04 Last Admin: 11/25/23 14:07 Dose: 25 mg Documented By: FADI Sodium Chloride (Normal Saline 0.9%) 1,000 mls @ 150 mls/hr IV CONT KEVIN Last Infusion: 11/25/23 14:11 Dose: Infused Documented By: Admin: 11/25/23 11:58 Dose: 150 mls/hr Documented By: FADI Morphine Sulfate (Morphine 4 Mg/Ml Inj) 4 mg IV NOW ONE Stop: 11/25/23 13:30 Last Admin: 11/25/23 13:58 Dose: 4 mg Documented By: FADI Oxycodone HCl (Oxycodone Ir 5 Mg Tablet) 10 mg PO NOW ONE Stop: 11/25/23 11:49 Last Admin: 11/25/23 11:54 Dose: 10 mg Documented By: FADI Vital Signs Vital signs: Vital Signs - 8 hr 11/25/23 11:32 11/25/23 11:41 11/25/23 11:41 Temperature Pulse Rate 91 H 88 Respiratory Rate Blood Pressure 139/65 Pulse Oximetry 96 94 Oxygen Delivery Method 11/25/23 11:42 11/25/23 11:45 11/25/23 11:45 Temperature 98.7 F Pulse Rate 87 90 Respiratory Rate 18 Blood Pressure 126/69 126/69 Pulse Oximetry 96 95 Oxygen Delivery Method Room Air 11/25/23 12:05 11/25/23 12:06 11/25/23 12:06 Temperature Pulse Rate 88 91 H Respiratory Rate Blood Pressure 96/75 Pulse Oximetry 96 95 Oxygen Delivery Method 11/25/23 12:16 11/25/23 12:16 11/25/23 13:29 Temperature Pulse Rate 89 85 Respiratory Rate Blood Pressure 143/77 H 128/70 Pulse Oximetry 94 96 Oxygen Delivery Method Medical Decision Making Lab Data 11/25/23 12:25 11/25/23 12:25 Labs: Lab Results 03/19/24 03/19/24 Range/Units 11:35 12:25 WBC 9.2 (4.5-11.0) X10^3/uL RBC 3.03 L (4.0-5.2) X10^6/uL Hgb 9.3 L (12.0-16.0) g/dL Hct 27.7 L (36-46) % MCV 91.3 (80-100) fL MCH 30.6 (26-34) PG MCHC 33.5 (30-36) % RDW 14.2 (11.6-14.8) % Plt Count 318 (150-400) X10^3/uL Neut % (Auto) 74.5 (50-75) % Lymph % (Auto) 13.2 L (25-40) % [place] % (Auto) 10.3 (3-14) % Eos % (Auto) 1.6 L (2-4) % Baso % (Auto) 0.4 (0-2) % Neut # (Auto) 6900 (3441-9370) /uL Lymph # (Auto) 1200 (8260-3661) /uL [place] # (Auto) 1000 H (0-900) /uL Eos # (Auto) 200 (0-450) /uL Baso # (Auto) 0 (0-100) /uL Sodium 135 L (137-145) mmol/L Potassium 3.7 (3.4-5.1) mmol/L Chloride 101 (98-107) mmol/L Carbon Dioxide 32 (22-32) mmol/L BUN 13 (7-17) mg/dL Creatinine 0.66 (0.52-1.04) mg/dL Estimated GFR > 60 (>60) mL/min BUN/Creatinine Ratio 19.7 (6-22) Glucose 99 (80-110) mg/dL Lactate 0.9 (0.7-2.1) mmol/L Calcium 8.5 (8.4-10.2) mg/dL Total Bilirubin 0.9 (0.2-1.3) mg/dL AST 61 H (14-36) IU/L ALT 53 H (<35) IU/L Alkaline Phosphatase 354 H (38-126) U/L Total Protein 6.3 (6.3-8.2) g/dL Albumin 3.1 L (3.5-5.0) g/dL Globulin 3.2 (1.7-4.1) g/dL Albumin/Globulin Ratio 1.0 (1.0-2.8) Procalcitonin 0.39 (<0.5) ng/mL Urine Color Yellow Urine Appearance Clear Urine pH 8.0 (4.5-8.0) Ur Specific [place] 1.020 (1.000-1.035) Urine Protein Negative (Negative) Urine Glucose (UA) Negative (Negative) g/dL Urine Ketones Trace H (NEGATIVE) Urine Occult Blood 1+ H (Negative) Urine Nitrate Negative (Negative) Urine Bilirubin Negative (NEGATIVE) Urine Urobilinogen 1.0 (0.2) E.U./dL Ur Leukocyte Esterase Negative (NEGATIVE) Urine RBC 1-5/hpf (0-5/HPF) Urine WBC 0-1/hpf (0-5/HPF) Ur Squamous Epith Cells None seen (0-5/HPF) Urine Bacteria Moderate (10-30) H (None) Ur Culture Indicated? Cult not indicated Vol Urine Centrifuged 10ml (spun) MDM Narrative Medical decision making narrative: 68-year-old female with reported fever at home, increased flank pain status post thoracic and lumbar spinal fusion in the past week. Patient had 1 low blood pressure with the EMS but otherwise has a appropriate vitals upon arrival. She does have a Thacker catheter in place which she was having some retention while in the hospital and was discharged with. Patient has not had any increase of midline back pain no new paresthesias or numbness tingling. She does not appreciate new weakness. Plan for labs, patient has a white count of 9, hemoglobin of 9.3 but did just have a significant surgery, platelets of 318. Sodium 135 potassium 3 7 chloride of 101 CO2 of 32 with a BUN of 13 creatinine 0.66, glucose 99, patient's AST, ALT are 61 and 53 with an alk-phos of 354 bilirubin 0.9, procalcitonin Urinalysis urine shows ketones, 1+ blood, no nitrates negative for leukocyte esterase 1-5 RBCs 0-1 WBCs no squamous moderate bacteria. CT abdomen pelvis shows stable hepatomegaly with a Riedels lobe configuration, [id number] coronary artery calcifications small hiatal hernia diffuse bilateral adrenal adenoma are stable with significant enlargement of both glands which is unchanged no hydro in the kidneys or ureters no complex renal cysts stable cysts with subjacent calcifications middle pole of left kidney, Thacker catheter decompressed his bladder completely no bladder calcifications are identified. No aggressive osseous abnormality extensive thoracolumbar orthopedic posterolateral fixation. Patient received fluids, Tylenol and oxycodone 10 mg for pain management. On recheck patient has been overall pain controlled. Discussed findings with patient possibility of infection although urine shows bacteria and a couple red cells does not show a lot of other changes. Patient's exam overall is fairly benign considering her point postop. She does have urine and blood cultures pending. Discussed covering with a an oral antibiotic for potential UTI since she does have a Thacker catheter in place and follow up with her spinal surgeon. Discussed her lab findings, hemoglobin, LFTs. She states that they were known to be a little bit off. She had imaging of her bladder, kidneys and liver while she was there. She is also aware of the adenomas that were found as well as a simple cyst. Reviewed urine is potential source of infection but not for sure. Blood cultures and urine culture pending, encouraged to return if worsening symptoms. She is persistent pain but notes that they decreased her pain medication on discharge so we will return her back to 10 mg q.4 hours. Discharge Plan Departure Patient Disposition: Home Clinical Impression: UTI (urinary tract infection), Adrenal adenoma, Renal cyst, Hepatomegaly Activity Restrictions/Additional Instructions: Please follow-up with your spinal surgeon, call to set up a follow up appointment sooner than your December 03 appointment if your symptoms are not improving. Your workup today shows possible bladder infection, prescription for antibiotic was sent to [facility] in [place] Continue with Tylenol a 1000 mg every 6 hours as needed for pain, you can take 1-2 tablets of oxycodone every 4-6 hours as needed. This medication can make you sleepy do not drive, perform hazardous activities or make any major decisions while taking it. This medication will make you constipated please take a stool softener once to twice daily until stools are soft and regular. There are urine culture as well as blood cultures currently pending. Your imaging does show changes to the liver and adrenal glands as well as a simple renal cyst. Please return for persistent fevers, new or worsening abdominal back or flank pain, vomiting, lightheadedness or passing out, new or worsening back pain, new numbness tingling or weakness in your extremities, new fecal incontinence or other new or concerning symptoms. Prescriptions: New oxycodone 5 mg tablet 10 mg PO Q4H PRN (Reason: pain) Qty: 20 0RF ciprofloxacin HCl 500 mg tablet 500 mg PO Q12H 7 Days Qty: 14 0RF No Action simvastatin 40 mg Tablet 40 mg PO DAILY Qty: 0 prazosin 5 mg capsule 10 mg PO BEDTIME methocarbamol 750 mg tablet 750 mg PO DAILY PRN (Reason: Muscle Spasm) hydrochlorothiazide 25 mg tablet 25 mg PO DAILY ziprasidone HCl 40 mg capsule 40 mg PO QPM omeprazole magnesium [Prilosec OTC] 20 mg Tablet,Delayed Release (Dr/Ec) 20 mg PO DAILY lamotrigine 100 mg Tablet 300 mg PO BEDTIME melatonin 10 mg Capsule 20 mg PO BEDTIME acetaminophen 325 mg Tablet 650 mg PO Q6HR PRN (Reason: Pain, Mild (1-3)) Qty: 60 0RF docusate sodium 100 mg Capsule 100 mg PO BID Qty: 20 0RF oxycodone 5 mg Tablet 10 mg PO Q3HR PRN (Reason: Pain, Severe (7-10)) Qty: 60 0RF oxycodone 5 mg tablet 5 mg PO Q4H PRN (Reason: pain (scale score 4-6)) Qty: 60 0RF Referrals: Gage Butler [Non-Staff] - Estiven Carrington PA-C [Primary Care Provider] - Stand Alone Forms: Patient Portal/API
[2023-11-25] MEDS: ACETAMINOPHEN 325 MG TABLET 975 MG PO (11:54)
[2023-11-25] MEDS: OXYCODONE IR 5 MG TABLET 10 MG PO (11:54)
[2023-11-25 11:56] LABS: Appearance Urine UA CLEAR; Bilirubin Urine UA NEGATIVE (NEGATIVE); Color Urine UA YELLOW; Glucose Urine UA NEGATIVE (Negative); Ketones Urine UA TRACE (NEGATIVE); Leukocyte Esterase Urine UA NEGATIVE (NEGATIVE); Nitrite Urine UA NEGATIVE (Negative); Occult Blood Urine UA 1+ (Negative); Protein Urine UA NEGATIVE (Negative)
[2023-11-25] MEDS: SODIUM CHLORIDE 0.9% 1,000 ML 150 ML IV (11:58)
[2023-11-25 12:03] LABS: Bacteria Urine Moderate (10-30); Culture Indicated Urine Cult Not Indicated; RBC Urine 1-5/HPF (0-5/HPF); Squamous Epithelial Cell Urine None Seen (0-5/HPF); Urine Volume 10mL (spun); WBC Urine 0-1/HPF (0-5/HPF)
--- NOTE | 2023-11-25 12:08 | DI.CT.S_ITS ---
PROCEDURE: CT ABDOMEN PELVIS W CON INDICATIONS: fusion thoracic/lumbar, left flank pain, dark urine, cathete TECHNIQUE: After the administration of intravenous contrast, axial sections acquired from the lung bases to the pubic symphysis. Coronal and sagittal reformats were performed. For radiation dose reduction, the following was used: automated exposure control, adjustment of mA and/or kV according to patient size. COMPARISON: [facility], CT, CT ABDOMEN PELVIS W CON, 05/05/2020, 14:14. FINDINGS: Image quality: Diagnostic. Lower Chest: Mild to moderate coronary artery calcifications. Small hiatal hernia. ABDOMEN: Liver: Stable in metal megaly. Craniocaudal dimension is 23.0, with a Reidel's lobe configuration. Gallbladder: No radiopaque gallstones or wall thickening. Biliary ducts: No biliary dilation. Pancreas: No ductal dilation. Spleen: Size is within normal limits. Adrenal Glands: Diffuse bilateral adrenal adenomata are stable, resulting significant enlargement in both glands. Again, this is unchanged. Kidneys and Ureters: No hydronephrosis. No solid mass. No complex renal cystic lesion which requires follow up. Stable cyst with subjacent calcifications, middle pole of left kidney. Stomach and Bowel: Normal colonic caliber, without significant wall thickening. Peritoneum: No abnormal intraperitoneal fluid. No free air. Ventral Wall: No significant ventral hernia. Abdominal Nodes: No retroperitoneal or mesenteric adenopathy by size criteria. Vessels: Aorta and inferior vena cava are normal in size. PELVIS: Pelvic Organs: Uterus is surgically absent.. Bladder: A Thacker catheter decompresses the bladder completely. No bladder calcifications are identified. Pelvic Nodes: No enlarged lymph nodes. Miscellaneous: No inguinal hernias are seen. Bones: No aggressive osseous abnormality. Extensive thoracolumbar orthopedic posterior lateral fixation. IMPRESSION: 1. No acute abnormality in the abdomen and pelvis. 2. No hydronephrosis or hydroureter. Bladder is decompressed by a Thacker catheter. 3. Stable hepatomegaly. 4. Stable enlarged adrenals with multiple bilateral adrenal adenomata. Dictated by: Apolinar Eugene M.D. on 11/25/2023 at 12:38 Approved by: Apolinar Eugene M.D. on 11/25/2023 at 12:57
[2023-11-25 12:43] LABS: Add Manual Diff / Slide Review NO; Basophils Absolute Auto 0 /uL (0-100); Basophils Percent Auto 0.4 % (0-2); Eosinophils Absolute Auto 200 /uL (0-450); Eosinophils Percent Auto 1.6 % (2-4); Hematocrit 27.7 % (36-46); Hemoglobin 9.3 g/dL (12.0-16.0); Lymphocytes Absolute Auto 1200 /uL (1100-4500); Lymphocytes Percent Auto 13.2 % (25-40); Mean Corpuscular HGB Conc 33.5 % (30-36); Mean Corpuscular Hemoglobin 30.6 PG (26-34); Mean Corpuscular Volume 91.3 fL (80-100); Monocytes Absolute Auto 1000 /uL (0-900); Monocytes Percent Auto 10.3 % (3-14); Neutrophils Absolute Auto 6900 /uL (1500-7000); Neutrophils Percent Auto 74.5 % (50-75); Platelet Count 318 X10^3/uL (150-400); Red Blood Cell Count 3.03 X10^6/uL (4.0-5.2); Red Cell Distribution Width 14.2 % (11.6-14.8); White Blood Cell Count 9.2 X10^3/uL (4.5-11.0)
[2023-11-25 13:04] LABS: Alanine Aminotransferase 53 IU/L (<35); Albumin 3.1 g/dL (3.5-5.0); Alkaline Phosphatase 354 U/L (38-126); Aspartate Aminotransferase 61 IU/L (14-36); BUN Creatinine Ratio 19.7 (6-22); Bilirubin Total 0.9 mg/dL (0.2-1.3); Blood Urea Nitrogen 13 mg/dL (7-17); Calcium 8.5 mg/dL (8.4-10.2); Carbon Dioxide 32 mmol/L (22-32); Chloride 101 mmol/L (98-107); Estimated Glomerular Filt Rate > 60 mL/min (>60); Globulin 3.2 g/dL (1.7-4.1); Glucose 99 mg/dL (80-110); HEMOLYSIS < 15 (0-50); Potassium 3.7 mmol/L (3.4-5.1); Sodium 135 mmol/L (137-145); Total Protein 6.3 g/dL (6.3-8.2)
[2023-11-25 13:05] LABS: Lactate (Lactic Acid) 0.9 mmol/L (0.7-2.1)
[2023-11-25 13:21] LABS: Procalcitonin 0.39 ng/mL (<0.5)
[2023-11-25] MEDS: MORPHINE 4 MG/ML INJ IV (13:58)
[2023-11-25] MEDS: diphenhydrAMINE 50 MG/ML VIAL 25 MG IV (14:07)
== END 2023-11-25 14:25 | disposition home or self-care (01) ==
PROVIDERS: Emergency Provider Emergency Medicine; PCP Student in an Organized Health Care Education/Training Program
DX: N39.0 Urinary tract infection, site not specified (principal); D35.00 Benign neoplasm of unspecified adrenal gland; N28.1 Cyst of kidney, acquired; R16.0 Hepatomegaly, not elsewhere classified
CPT/HCPCS: 36415; 74177; 80053; 81001; 83605; 84145; 85025; 87040; 96361; 96374; 96375; 99284; J1200; J2270; Q9967